=== PATIENT | female | born 1970 | race Two or more races ===

== ENCOUNTER 2018-03-08 11:02 | Outpatient (CLI) | payer BC | END 2018-03-08 11:03 | disposition home or self-care (01) | LOC: DI 11:02 | PROVIDERS: ATTEND Family Medicine | DX: R00.2 Palpitations (principal); I10 Essential (primary) hypertension | CPT/HCPCS: 93306 ==

== ENCOUNTER 2020-03-17 14:25 | Outpatient (CLI) | payer BC, OTHER ==
[2020-03-17 18:37] LABS: BASOPHILS % (AUTO) 0.2 %; EOSINOPHILS # (AUTO) 0.1 10^3/uL (0.0-0.7); EOSINOPHILS % (AUTO) 1.5 %; HGB - HEMOGLOBIN 12.4 g/dL (12.0-16.0); LYMPHOCYTES # (AUTO) 2.1 10^3/uL (1.5-3.5); LYMPHOCYTES % (AUTO) 44.9 %; MEAN CORPUSCULAR HEMOGLOBIN 28.9 pg (27.0-31.0); MEAN CORPUSCULAR HGB CONC 32.5 g/dL (32.0-36.0); MEAN CORPUSCULAR VOLUME 88.8 fL (81.0-99.0); MEAN PLATELET VOLUME 11.5 fL (7.9-10.8); MONOCYTES # (AUTO) 0.4 10^3/uL (0.0-1.0); MONOCYTES % (AUTO) 8.3 %; NEUTROPHILS # (AUTO) 2.1 10^3/uL (1.5-6.6); NEUTROPHILS % (AUTO) 44.9 %; PLT - PLATELET COUNT 238 10^3/uL (130-450); RED BLOOD COUNT 4.29 10^6/uL (4.20-5.40); WHITE BLOOD COUNT 4.7 x10^3/uL (4.8-10.8)
[2020-03-17 19:02] LABS: ALBUMIN 3.9 g/dL (3.2-5.5); BILIRUBIN,TOTAL 0.6 mg/dL (0.2-1.0); CALCIUM 9.6 mg/dL (8.5-10.3); CREATININE 0.7 mg/dL (0.4-1.0); TOTAL PROTEIN 7.7 g/dL (6.7-8.2)
[2020-03-17 20:57] LABS: FREE T4 (FREE THYROXINE) 2.93 ng/dL (0.58-1.64)
== END 2020-03-17 23:59 | disposition home or self-care (01) ==
LOC: LAB.WCP 14:25
PROVIDERS: ATTEND Family Medicine
DX: R59.0 Localized enlarged lymph nodes (principal); R63.4 Abnormal weight loss; E05.90 Thyrotoxicosis, unspecified without thyrotoxic crisis or storm
CPT/HCPCS: 36415; 80053; 83615; 84439; 84443; 85025

== ENCOUNTER 2020-03-17 22:02 | Emergency (ER) | payer BC, OTHER ==
--- NOTE | 2020-03-17 22:47 | ED Physician Documentation ---
History of Present Illness - Stated complaint Stated Complaint: LEFT LEG SWELLING, SWOLLEN LYMPH NODES - Chief complaint Chief Complaint: Ext Problem - History obtained from History obtained from: Patient - History of Present Illness Timing: Today Pain level now: 0 - Additonal information Additional information: c/o atraumatic LLE swelling since earlier today. denies h/o similar symptoms. she was evaluated recently by PMD for left supraclavicular lymphadenopathy, had outpatient blood tests earlier today and surgical consult pending for consideration of node biopsy. patient has distant h/o colon CA (approximately 15 years ago), treated w/ chemotherapy and radiation after polypectomy. patient contacted PMD this evening after noticing LLE swelling, advised to come to ED. patient denies chest pain, dyspnea. Review of Systems Constitutional: reports: Weight Loss Cardiac: reports: Reviewed and negative Respiratory: reports: Reviewed and negative GI: reports: Reviewed and negative Musculoskeletal: reports: Extremity swelling. denies: Extremity pain Neurologic: denies: Generalized weakness, Focal weakness, Numbness, Headache Endocrine: reports: Weight loss PD PAST MEDICAL HISTORY - Past Medical History Past Medical History: Yes GI: Other (colon CA) - Allergies Allergies/Adverse Reactions: Allergies Allergy/AdvReac Type Severity Reaction Status Date / Time No Known Drug Allergies Allergy Verified 03/17/20 22:11 - Living Situation Living Arrangement: reports: At home PD ED PE NORMAL - Vitals Vital signs reviewed: Yes - General General: Alert and oriented X 3, No acute distress, Well developed/nourished - Cardiac Cardiac: No murmur - Respiratory Respiratory: No respiratory distress, Clear bilaterally PD ED PE EXPANDED - Neck Neck: Adenopathy (left supraclavicular nontender adenopathy) - Cardiac Cardiac: Tachy, Regular Rhythm - Extremities Extremities: Pedal edema L (mild generalized LLE edema (circumferential of entire extremity)), Pedal Pulses Present, Motor intact, Sensory intact Results - Vitals Vitals: Vital Signs - 24 hr 03/18/20 02:18 Temperature 36.8 C Heart Rate 117 H Respiratory 20 Rate Blood Pressure 116/85 H O2 Saturation 97 Oxygen O2 Source Room air - Labs Labs: Laboratory Tests 03/17/20 23:15 PT 14.1 H INR 1.3 H APTT 30.8 - Rads (name of study) LLE doppler US Radiology: Prelim report reviewed, See rad report CT A/P with IV contrast Radiology: Prelim report reviewed, See rad report CT chest with IV contrast Radiology: Prelim report reviewed, See rad report PD MEDICAL DECISION MAKING - ED course Complexity details: reviewed results, re-evaluated patient, considered differential, d/w patient ED course: results d/w patient. d/w Dr. Hogan, will expedite follow up and will contact patient in AM to discuss follow up Departure - Departure Disposition: 01 Home, Self Care Clinical Impression: Abdominal lymphadenopathy, Peripheral edema Condition: Good Instructions: Lymphadenopathy, ED Leg Swelling Unilateral Follow-Up: Eris Hogan DO [Primary Care Provider] - Tomorrow Discharge Date/Time: 03/18/20 02:20
[2020-03-17] MEDS ORDERED: IOVERSOL 320 100 ML VIAL IVP ONE ×2 (23:16→23:52)
[2020-03-17 23:28] LABS: INR 1.3 (0.8-1.2); PT - PROTHROMBIN TIME 14.1 secs (9.9-12.6)
[2020-03-17 23:35] LABS: PARTIAL THROMBOPLASTIN TIME 30.8 secs (24.9-33.3)
[2020-03-18 02:33] VITALS: BP 116/85
--- NOTE | 2020-03-18 07:45 | Ultrasound Report ---
PROCEDURE: Duplex Ext Veins Left INDICATIONS: LLE swelling TECHNIQUE: Real-time imaging, as well as color and pulse Doppler interrogation, were performed of the lower extr emity deep veins from the inguinal ligament to the popliteal fossa. COMPARISON: None. FINDINGS: The deep veins are normally compressible, and free of intraluminal thrombus. Color and pu lse Doppler demonstrate normal phasic intraluminal flow. There is normal augmentation response to di stal compression maneuver. IMPRESSION: No evidence of deep vein sclerosis involving the left lower extremity. Reviewed by: Sirena Rodriguez MD, PhD on 03/18/2020 7:44 AM PDT Approved by: Sirena Rodriguez MD, PhD on 03/18/2020 7:44 AM PDT Station ID: [id number]
--- NOTE | 2020-03-18 08:23 | CT Report ---
PROCEDURE: CHEST W INDICATIONS: tachycardic, lymphadenopathy, LLE swelling CONTRAST: IV CONTRAST: Optiray 320 ml: 100 PO CONTRAST: *NO PO CONTRAST TECHNIQUE: After the administration of intravenous contrast, 5 mm thick sections acquired from the pulmonary api artur to the posterior costophrenic angles. 7 mm thick coronal MIP reformats were acquired. For radia tion dose reduction, the following was used: automated exposure control, adjustment of mA and/or kV according to patient size. COMPARISON: None. FINDINGS: Image quality: Excellent. Lungs and pleura: No acute air space opacities. No pleural effusions or pneumothorax. Central and peripheral airways are patent and normal in caliber. Mediastinum: Heart size is normal. No pericardial effusion. No mediastinal or hilar adenopathy by size criteria. Thoracic aorta and central pulmonary arteries are normal in size. Esophagus is starr l in caliber. No hiatal hernia. Bones and chest wall: Nonspecific vertebral body lucency measuring 6 mm is present within the T11 mariola tebral body. No priors are available for comparison. No vertebral body compression fractures. No axi llary or supraclavicular adenopathy by size criteria. Thyroid gland is unremarkable. Supraclavicula r lymph nodes are present on the left the largest measuring 20 mm AP by 23 mm transverse on series 2 image 10. Abdomen: Small stones versus sludge are noted within the gallbladder. Confluent soft tissue mass tj rounding the aorta is present although incompletely visualized. Otherwise, visualized upper abdominal solid organs appear normal. Upper abdominal bowel loops are normal in caliber. IMPRESSION: 1. Prominent supraclavicular and periaortic adenopathy as above concerning for malignancy. Please see CT abdomen report of 03/17/2020 for further details. 2. Stones versus sludge within the gallbladder without wall thickening. The above findings are concordant with preliminary report. Reviewed by: Teresa Iglesias MD on 03/18/2020 8:22 AM PDT Approved by: Teresa Iglesias MD on 03/18/2020 8:22 AM PDT Station ID: [id number]
--- NOTE | 2020-03-18 09:37 | CT Report ---
PROCEDURE: Abdomen/Pelvis W INDICATIONS: unexplained weight loss, h/o colon cancer CONTRAST: IV CONTRAST: Optiray 320 ml: 100 PO CONTRAST: *NO PO CONTRAST TECHNIQUE: After the administration of IV contrast, 5 mm thick sections acquired from the diaphragms to the symp hysis. 5 mm thick coronal and sagittal reformats were acquired. For radiation dose reduction, the f ollowing was used: automated exposure control, adjustment of mA and/or kV according to patient size. COMPARISON: None. FINDINGS: Image quality: Excellent. ABDOMEN: Lung bases: Lung bases are clear. Heart size is normal. Solid organs: Liver and spleen are normal in size and enhancement. Gallbladder demonstrates punctat e stones versus sludge without wall thickening Biliary system is non dilated. Pancreas enhances nor jannet. No adrenal nodules. Kidneys demonstrate normal size and enhancement, without hydronephrosis. Peritoneum and bowel: Bowel loops demonstrate normal wall thickness and caliber. No free fluid or a ir. Nodes and vessels: Confluent periaortic/aortocaval mass is present measuring 5.5 cm AP by 9.1 cm alexander sverse by 17.4 cm craniocaudal. The mass compresses the IVC within the inferior portion. It extends i nto the pelvis bilaterally surrounding the iliac vessels. There is significant compression of the rig ht common iliac vein and bilateral external iliac veins proximally. Lobulated areas of soft tissue ma ss becoming contiguous with the mass surrounding the iliac arteries are present within the pelvic edgardo ewalls bilaterally measuring 30 mm AP by 33 mm transverse on the left and 22 mm AP by 20 mm transvers e on the right. Left retrocrural soft tissue mass is present measuring 24 mm AP by 22 mm transverse. Aorta and inferior vena cava are normal in size. Miscellaneous: No ventral hernias. PELVIS: Genitourinary: Bladder wall thickness is normal. Left ovarian cyst is noted. Miscellaneous: No inguinal hernias or adenopathy. Bones: T11 vertebral body lucency measuring approximately 6 mm. No priors are available for compariso n. No vertebral body compression fractures. IMPRESSION: 1. Extensive soft tissue mass suspicious for malignant adenopathy in the retroperitoneum extending in to the pelvis as above. 2. T11 vertebral body lucency, nonspecific. However, given areas of adenopathy, metastatic focus britt ot be definitively excluded. 3. Cholelithiasis without imaging evidence of cholecystitis. The above findings are concordant with preliminary report. Reviewed by: Teresa Iglesias MD on 03/18/2020 9:36 AM PDT Approved by: Teresa Iglesias MD on 03/18/2020 9:36 AM PDT Station ID: [id number]
== END 2020-03-18 02:20 | disposition home or self-care (01) ==
LOC: ED 22:02
DX: R59.0 Localized enlarged lymph nodes (principal); R60.0 Localized edema; Z85.038 Personal history of other malignant neoplasm of large intestine
CPT/HCPCS: 36415; 71260; 74177; 85610; 85730; 93971; 99284; Q9967

== ENCOUNTER 2020-03-22 12:59 | Outpatient (CLI) | payer OTHER | END 2020-03-22 13:00 | disposition home or self-care (01) | LOC: LAB 12:59 | PROVIDERS: ATTEND Surgery | DX: Z01.812 Encounter for preprocedural laboratory examination (principal); R59.0 Localized enlarged lymph nodes; Z20.828 Contact with and (suspected) exposure to other viral communicable diseases ==

== ENCOUNTER 2020-03-25 10:20 | Day surgery (SDC) | payer OTHER ==
[2020-03-25] MEDS ORDERED: LACTATED RINGERS 1,000 ML IV ONE ×2 (10:39→12:49)
[2020-03-25] MEDS ORDERED: METOCLOPRAMIDE 10 MG/2 ML VIAL IVP PRN (10:58)
[2020-03-25] MEDS ORDERED: ATROPINE ABBOJECT 1 MG/10 ML SYRINGE IVP PRN (10:58)
[2020-03-25] MEDS ORDERED: ePHEDrine 50 MG/ML VIAL IVP PRN (10:58)
[2020-03-25] MEDS ORDERED: HYDROmorphone 0.5 MG/0.5 ML SYRINGE IVP PRN (10:58)
[2020-03-25] MEDS ORDERED: NALOXONE 0.4 MG/ML VIAL IVP PRN (10:58)
[2020-03-25] MEDS ORDERED: fentaNYL 100 MCG/2 ML VIAL IVP PRN (10:58)
[2020-03-25] MEDS ORDERED: MORPHINE 2 MG/ML CARPUJECT IVP PRN (10:58)
[2020-03-25] MEDS ORDERED: ONDANSETRON 4 MG/2 ML VIAL IVP PRN (10:58)
--- NOTE | 2020-03-25 10:58 | ANESTHESIA ---
Pre-Anesthesia VS, & Labs - Diagnosis left neck enlarged lymph node - Procedure left neck lymph node biopsy Vital Signs: Temp Pulse Resp BP Pulse Ox 37 C 116 H 16 156/83 H 96 03/25/20 10:31 03/25/20 10:31 03/25/20 10:31 03/25/20 10:31 03/25/20 10:31 Height: 5 ft 7 in Weight (kg): 74.5 kg Body Mass Index: 25.7 BMI Classification: Overweight - NPO >8 hours - Is Patient ?: No - Lab Results Lab results reviewed: Yes Home Medications and Allergies Home Medications: Ambulatory Orders methIMAzole [Methimazole] 5 mg PO DAILY 03/22/20 methIMAzole [Methimazole] 5 mg PO DAILY 03/22/20 Allergies/Adverse Reactions: Allergies Allergy/AdvReac Type Severity Reaction Status Date / Time No Known Drug Allergies Allergy Verified 03/17/20 22:11 Anes History & Medical History - Anesthetic History Anesthesia Complications: reports: No previous complications Family history of Anesthesia Complications: Denies Family history of Malignant Hyperthermia: Denies - Medical History Cardiovascular: reports: Hypertension Pulmonary: reports: None Gastrointestinal: reports: Other Urinary: reports: None Musculoskeletal: reports: None Endocrine/Autoimmune: reports: HyPERthyroidism Skin: reports: None Smoking Status: Never smoker - Surgical History General: Colonoscopy Exam General: Alert, Oriented x3, Cooperative, No acute distress Dental: WNL Mouth Openin Fingerbreadth Neck Mobility: Normal Mallampati classification: II Respiratory: Lungs clear, Normal breath sounds, No respiratory distress, No accessory muscle use Cardiovascular: Regular rate, Normal S1, Normal S2, No murmurs Abdomen: Normal bowel sounds, Soft, No tenderness, No hepatospenomegaly, No masses Plan Anesthesia Type: General Consent for Procedure(s) Verified and Reviewed: Yes Code Status: Attempt Resuscitation ASA classification: 2-Mild systemic disease Is this case an emergency?: No
[2020-03-25] MEDS ORDERED: LACTATED RINGERS 1,000 ML IV SCH (11:00)
[2020-03-25] MEDS ORDERED: BUPIVACAINE 0.25% PF 30 ML VIAL ONE (11:27)
[2020-03-25] MEDS ORDERED: BUPIVACAINE 0.25%-EPI 1:200000 PF 30 ML VIAL ONE (11:27)
[2020-03-25] MEDS ORDERED: ONDANSETRON 4 MG/2 ML VIAL IVP ONE (11:42)
[2020-03-25] MEDS ORDERED: fentaNYL 100 MCG/2 ML VIAL IVP ONE (11:42)
[2020-03-25] MEDS ORDERED: PROPOFOL 200 MG/20 ML VIAL IVP ONE (11:42)
[2020-03-25] MEDS ORDERED: LIDOCAINE-MPF 2% 5 ML VIAL IM ONE (11:42)
[2020-03-25] MEDS ORDERED: DEXAMETHASONE 4 MG/ML VIAL IVP ONE (11:42)
[2020-03-25] MEDS ORDERED: BUPIVACAINE 0.25%-EPI 1:200000 PF 30 ML VIAL SUBQ ONE (12:07)
[2020-03-25] MEDS ORDERED: HYDROcod/ACETAM 5/325 MG TABLET PO PRN (12:41)
--- NOTE | 2020-03-25 12:59 | OPERATIVE REPORT ---
Operative Report - General Procedure Date: 03/25/20 Planned Procedure: left neck lymph node bx Pre-Op Diagnosis: lymphadenopathy Procedure Performed: left neck lymph node biopsy Post Op Diagnosis: same - Procedure Note Primary Surgeon: jorgito valenzuela Anesthesia Technique: General LMA Pathology: node Estimated Blood Loss (mL): 0 Drain/Tube Type: Other (none) Complications: none
--- NOTE | 2020-03-25 13:36 | ANESTHESIA POST OP EVALUATION ---
Anesthesia Post Eval - Post Anesthesia Eval Vitals: Last Vital Signs Temp 36.6 C 03/25/20 13:20 Pulse 108 H 03/25/20 13:20 Resp 16 03/25/20 13:20 BP 133/67 H 03/25/20 13:20 Pulse Ox 97 03/25/20 13:20 CV Function Including HR & BP: positive: Stable Pain Control: positive: Satisfactory Nausea & Vomiting: positive: Negative Mental Status: positive: Baseline Respiratory Status: Airway Patent Hydration Status: Satisfactory Anesthesia Complications: positive: None
[2020-03-25 14:07] VITALS: BP 128/70
--- NOTE | 2020-03-25 17:55 | OPERATIVE REPORT ---
DATE OF SERVICE: 03/25/2020 Physician: Cliff Garcia MD DATE OF PROCEDURE 03/25/2020. PREOPERATIVE DIAGNOSIS Lymphadenopathy of left neck. POSTOPERATIVE DIAGNOSIS Lymphadenopathy of left neck. PROCEDURE PERFORMED Lymph node biopsy of left lower cervical node. SURGEON Cliff Garcia MD LEAD TEACHER None. ANESTHESIA Laryngeal mask anesthesia. Local anesthesia with Marcaine. SPECIMEN Sent to pathology. ESTIMATED BLOOD LOSS None. DRAINS None. COMPLICATIONS None. INDICATIONS FOR PROCEDURE The patient is a previously well 49-year-old who has developed left neck lymphadenopathy over the last 1-2 months; it is slowly progressing. She had a CT scan showing signif icant retroperitoneal adenopathy as well. She presents for lymph node biopsy. Risks and alternative s discussed, and all questions answered and consent obtained. DESCRIPTION OF PROCEDURE The patient was properly identified and brought to the operating room and p laced in the supine position. Laryngeal mask anesthesia was induced. She was repositioned in the mo dified Cat's position. She was prepped and draped in a sterile fashion. Antibiotics were not giv en. A 3.5 cm incision was made in the direction of Radha's lines over a large palpable; however, mo bile lymph node. Dissection proceeded with cutting current down through the platysma. A small nerve was carefully preserved. Dissection proceeded down to the lymph node. The lymph node was largely m obilized with blunt dissection. Lymph node was removed with a single 2-0 silk tie. Hemostasis was a ssured. The platysma was then closed with a running 3-0 Vicryl suture. Buried interrupted subdermal 3-0 Vicryl sutures were then placed. Skin was closed with a running 4-0 Monocryl subcuticular sutur e. Skin glue was used as a dressing. She tolerated the procedure well. TD: 03/25/2020 13:05
== END 2020-03-25 10:21 | disposition home or self-care (01) ==
LOC: SDS 10:20
PROVIDERS: ATTEND Surgery
PROC: 0JB50ZX Excision of Left Neck Subcutaneous Tissue and Fascia, Open Approach, Diagnostic (ICD-10-PCS; principal; 2020-03-25 11:30)
DX: C7B.8 Other secondary neuroendocrine tumors (principal); C80.1 Malignant (primary) neoplasm, unspecified; I10 Essential (primary) hypertension; Z85.038 Personal history of other malignant neoplasm of large intestine
CPT/HCPCS: 38500; J7120

== ENCOUNTER 2020-04-03 19:01 | Emergency (ER) | payer OTHER ==
[2020-04-03] MEDS ORDERED: KETOROLAC 30 MG/ML VIAL IVP STA (19:51)
[2020-04-03] MEDS ORDERED: SODIUM CHLORIDE 0.9% 1,000 ML IV STA (19:51)
[2020-04-03] MEDS ORDERED: GABAPENTIN 100 MG CAPSULE PO STA (19:52)
--- NOTE | 2020-04-03 20:00 | ED Physician Documentation ---
PD HPI ABD PAIN - Stated complaint Stated Complaint: ABD PAIN - Chief complaint Chief Complaint: Abd Pain - History obtained from History obtained from: Patient - Additional information Additional information: She has been having some on and off symptoms of pain especially at night in the abdomen over the last few months. She was seen here on March 17 because she had left leg swelling, mostly at the time to make sure she did not have a DVT. She was evaluated that time by Dr. Ewing, and ultrasound was negative but this was followed with CTs of the chest abdomen and pelvis which were notable for extensive soft tissue mass suspicions for malignant adenopathy in the retroperitoneum extending into the pelvis with a nonspecific T11 vertebral body focus. She also had cholelithiasis. Subsequently about a week later she went to the operating room because she had adenopathy that was amenable to biopsy and a biopsy was done on the eighth of this month of a left supraclavicular lymph node. 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 She has been having a lot of pain, especially in the low abdomen, the right lower quadrant. She still has the left leg swelling but that has not changed. Pain is generally getting worse and more present at night. She has been having bowel movements. She has been taking hydrocodone but is taking a laxative and she has not stopped up. She denies vomiting. She has had about a 70 pound weight loss over the last 6 months or so. She notes that she had a menses which finished up at the end of last month. But still has vaginal discharge, mostly clear to blood-tinged. Of an amount that still requires her to wear a pad. Review of Systems Ten Systems: 10 systems reviewed and negative Constitutional: reports: Fatigue, Weight Loss. denies: Fever, Chills Cardiac: denies: Chest pain / pressure, Palpitations Respiratory: denies: Dyspnea, Cough GI: reports: Abdominal Pain. denies: Nausea, Vomiting, Constipation, Diarrhea : denies: Dysuria PD PAST MEDICAL HISTORY - Past Medical History Cardiovascular: Hypertension Respiratory: None Endocrine/Autoimmune: HyPERthyroidism GI: Other : None HEENT: Chronic vision loss, Other Psych: None Musculoskeletal: None Derm: None - Past Surgical History Past Surgical History: No General: Colonoscopy - Present Medications Home Medications: Ambulatory Orders Medication Instructions Recorded Confirmed methIMAzole [Methimazole] 5 mg PO DAILY 03/22/20 04/03/20 Hydrocodone/Acetaminophen 1 each PO Q4HR PRN #30 tablet 03/25/20 04/03/20 [Hydrocodone-Acetamin 5-325 mg] HYDROmorphone [Dilaudid] 1 - 2 tab PO Q4H PRN #40 tablet 04/03/20 - Allergies Allergies/Adverse Reactions: Allergies Allergy/AdvReac Type Severity Reaction Status Date / Time No Known Drug Allergies Allergy Verified 04/03/20 19:11 - Social History Does the pt smoke?: No Smoking Status: Never smoker Does the pt drink ETOH?: Yes Does the pt have substance abuse?: No - POLST Patient has POLST: No PD ED PE NORMAL - Vitals Vital signs reviewed: Yes - General General: Alert and oriented X 3, No acute distress, Other (Tachycardic) - HEENT HEENT: PERRL, EOMI - Neck Neck: Supple, no meningeal sign, No bony TTP - Cardiac Cardiac: RRR, No murmur - Respiratory Respiratory: No respiratory distress, Clear bilaterally - Abdomen Abdomen: Normal bowel sounds, Soft, Non tender - Female Female : 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 No tenderness on bimanual examination.) - Back Back: No CVA TTP, No spinal TTP - Derm Derm: Normal color, Warm and dry - Extremities Extremities: Other (Left leg is edematous with good cap refill distally. I am unable to feel a pulse in the left leg, but it is well perfused and there is no pain in the leg. Right pedal pulses are bounding.) - Neuro Neuro: Alert and oriented X 3, Normal speech Results - Vitals Vitals: Vital Signs - 24 hr 04/03/20 04/03/20 04/03/20 19:04 20:47 21:59 Temperature 36.7 C Heart Rate 117 H 113 H 66 Respiratory 18 18 16 Rate Blood Pressure 180/93 H 166/87 H 141/68 H O2 Saturation 97 100 100 Oxygen O2 Source Room air - Labs Labs: Laboratory Tests 04/03/20 04/03/20 19:56 19:56 WBC 4.4 L RBC 4.00 L Hgb 11.3 L Hct 35.1 L MCV 87.8 MCH 28.3 MCHC 32.2 RDW 13.0 Plt Count 165 MPV 9.8 Neut # (Auto) 2.3 Lymph # (Auto) 1.4 L [place] # (Auto) 0.6 Eos # (Auto) 0.1 Baso # (Auto) 0.0 Absolute Nucleated RBC 0.00 Nucleated RBC % 0.0 Sodium 138 Potassium 4.1 Chloride 102 Carbon Dioxide 25 Anion Gap 11.0 BUN 17 Creatinine 0.6 Estimated GFR (MDRD) 106 Glucose 99 Calcium 9.4 Total Bilirubin 0.7 AST 39 ALT 37 Alkaline Phosphatase 46 Total Protein 7.1 Albumin 3.4 Globulin 3.7 Albumin/Globulin Ratio 0.9 L Lipase 19 L - Rads (name of study) CT A/P Radiology: EMP read contemporaneously (Really no change from prior CT.) PD MEDICAL DECISION MAKING - ED course ED course: This is an unfortunate 49-year-old woman who presents with known stage IV recent diagnosis of metastatic neuroendocrine carcinoma, with uncontrolled abdominal pain. She has known significant retroperitoneal lymphadenopathy and this may be causative. However complications of the vascular system are also entertained given the location of the tumors. As is bowel obstruction although clinically this does not seem present. She may also have things like hydronephrosis from tumor burden etc. We will check for all this with a CAT scan. She is been taking hydrocodone which is helpful but does not relieve the pain too much and she does not like the way it makes her feel. In the department we will trial some Toradol and gabapentin. No relief from above but pain free p dilaudid IV. Pelvic exam results d/w Dr Payne, community outreach worker to F/u in office. Departure - Departure Disposition: 01 Home, Self Care Clinical Impression: Neuroendocrine carcinoma metastatic to multiple sites, Cervical mass Abdominal pain Qualifiers: Abdominal location: lower abdomen, unspecified Qualified Code(s): R10.30 - Lower abdominal pain, unspecified Condition: Good Record reviewed to determine appropriate education?: Yes Follow-Up: Kalpana Morrison MD [Provider Admit Priv/Credential] - Prescriptions: HYDROmorphone [Dilaudid] 1 - 2 tab PO Q4H PRN #40 tablet PRN Reason: Pain Comments: It was a pleasure meeting you tonight and I am glad we were able to make some headway into improving your pain. It is I think important to follow-up with a middle school volleyball coach for reevaluation of the cervical mass we found bo. See the phone number on this form and call Sunday for an appointment. Return anytime if worsening or if the symptom burden is uncontrolled. The following is the email I wrote to your physician bo: Eris, I had the pleasure of seeing your patient bo, Ms. Ko Gonzalez. As you know this is an 49-year-old woman with new diagnosis of metastatic neuroendocrine carcinoma. Planning to see oncology this coming Sunday. She presented with abdominal pain that is generally worsening, pelvic and right lower quadrant. She also noted that she has been having vaginal fluid loss after her menses 2 weeks ago. We repeated the CT scan, there really were no changes. Labs were unremarkable, except for brewing new mild anemia which is not unexpected. Because of her complaints I also did a pelvic exam and she has a friable cervical mass that is necrotic appearing. I discussed the case by phone with Na Morrison, our middle school volleyball coach on-call. She felt the most likely this is a site of metastasis of her primary neuroendocrine tumor. But she probably needs to have gynecology do a pelvic exam as well. I have written the phone number down for her to go see gynecology, do not know if she needs a formal referral from you. She did better with Dilaudid than she did with hydrocodone for pain management and I provided a prescription. She may need refills. Thanks, Rafiq Weeks MD FACEP Chief of Medicine Emergency Department Entry Level Assistant Manager Discharge Date/Time: 04/03/20 22:02
[2020-04-03 20:07] LABS: BASOPHILS % (AUTO) 0.2 %; EOSINOPHILS # (AUTO) 0.1 10^3/uL (0.0-0.7); EOSINOPHILS % (AUTO) 1.4 %; HGB - HEMOGLOBIN 11.3 g/dL (12.0-16.0); LYMPHOCYTES # (AUTO) 1.4 10^3/uL (1.5-3.5); LYMPHOCYTES % (AUTO) 32.4 %; MEAN CORPUSCULAR HEMOGLOBIN 28.3 pg (27.0-31.0); MEAN CORPUSCULAR HGB CONC 32.2 g/dL (32.0-36.0); MEAN CORPUSCULAR VOLUME 87.8 fL (81.0-99.0); MEAN PLATELET VOLUME 9.8 fL (7.9-10.8); MONOCYTES # (AUTO) 0.6 10^3/uL (0.0-1.0); MONOCYTES % (AUTO) 12.9 %; NEUTROPHILS # (AUTO) 2.3 10^3/uL (1.5-6.6); NEUTROPHILS % (AUTO) 52.9 %; PLT - PLATELET COUNT 165 10^3/uL (130-450); WHITE BLOOD COUNT 4.4 x10^3/uL (4.8-10.8)
[2020-04-03 20:18] LABS: ALBUMIN 3.4 g/dL (3.2-5.5); ALBUMIN/GLOBULIN RATIO 0.9 (1.0-2.2); BILIRUBIN,TOTAL 0.7 mg/dL (0.2-1.0); CALCIUM 9.4 mg/dL (8.5-10.3); CREATININE 0.6 mg/dL (0.4-1.0); TOTAL PROTEIN 7.1 g/dL (6.7-8.2)
[2020-04-03] MEDS ORDERED: IOVERSOL 320 100 ML VIAL IVP ONE ×2 (20:21→20:49)
[2020-04-03] MEDS ORDERED: HYDROmorphone 1 MG/ML CARPUJECT IVP STA (20:47)
--- NOTE | 2020-04-03 21:21 | CT Report ---
PROCEDURE: Abdomen/Pelvis W INDICATIONS: IV only, worse low abd pain, RLQ CONTRAST: IV CONTRAST: Optiray 320 ml: 100 PO CONTRAST: *NO PO CONTRAST TECHNIQUE: After the administration of intravenous contrast, 5 mm thick sections acquired from the diaphragms to the symphysis. 5 mm thick coronal and sagittal reformats were acquired. For radiation dose reducti on, the following was used: automated exposure control, adjustment of mA and/or kV according to yulissa ent size. COMPARISON: CT abdomen and pelvis 03/17/2020. FINDINGS: Image quality: Excellent. ABDOMEN: Lung bases: Lung bases are clear. Heart size is normal. Solid organs: Liver is normal in size and enhancement. Gallbladder is not distended. Gallstones are present. Biliary system is non dilated. Pancreas appears atrophic. Spleen mildly prominent in size measuring 13.1 cm protocol dimension, (). No adrenal nodules. Kidneys demonstrate normal size a nd enhancement, without hydronephrosis. Peritoneum and bowel: Bowel loops demonstrate normal wall thickness and caliber. Normal appendix. N o free fluid or air. Nodes and vessels: Bulky confluent retroperitoneal adenopathy, similar to February 2020. Pelvic side wall adenopathy is also similar. Enlarged right mesorectal lymph node, unchanged. Small cysts in the pelvis are unchanged. Aorta and inferior vena cava are normal in size. Mesenteric vessels are patent . Miscellaneous: No ventral hernias. Mild anasarca. PELVIS: Genitourinary: Bladder wall thickness is normal. Anteverted uterus. Abnormal thickening in the regio n of the uterine cervix, similar the prior exam. Miscellaneous: No inguinal hernias or adenopathy. Bones: Hypodense focus in the T11 vertebral body is unchanged. No new areas of lucency or hypodensity . No vertebral body compression fractures. IMPRESSION: 1. No acute inflammatory process identified. No free fluid. Normal appendix in the right lower quadra nt. 2. Bulky confluent retroperitoneal and pelvic adenopathy is not significantly changed compared to Feb. 3. Similar cysts in the pelvis likely ovarian cyst. Similar abnormal thickening in the region of the uterine cervix. -Consider further evaluated with pelvic ultrasound. 4. Similar anasarca. 5. Gallstones. Reviewed by: Flip Chen MD on 04/03/2020 9:19 PM PDT Approved by: Flip Chen MD on 04/03/2020 9:19 PM PDT Station ID: [id number]
[2020-04-03] MEDS ORDERED: HYDROmorphone 2 MG TABLET PO STA (21:41)
[2020-04-03 22:00] VITALS: BP 141/68
== END 2020-04-03 22:02 | disposition home or self-care (01) ==
LOC: ED 19:01
DX: C7A.1 Malignant poorly differentiated neuroendocrine tumors (principal); C77.2 Secondary and unspecified malignant neoplasm of intra-abdominal lymph nodes; D39.0 Neoplasm of uncertain behavior of uterus; I10 Essential (primary) hypertension; D64.9 Anemia, unspecified; K80.20 Calculus of gallbladder without cholecystitis without obstruction
CPT/HCPCS: 36415; 74177; 80053; 83690; 85025; 96374; 96375; 99284; 99285; A9270; J1170; Q9967

== ENCOUNTER 2020-04-16 07:00 | Outpatient (CLI) | payer OTHER ==
[2020-04-16 20:30] LABS: CANDIDA GROUP DNA NEGATIVE (NEGATIVE); CANDIDA KRUSEI DNA NEGATIVE (NEGATIVE); TRICHOMONAS VAGINALIS DNA NEGATIVE (NEGATIVE)
[2020-04-16 21:15] LABS: TRICHOMONAS VAGINALIS DNA NEGATIVE (NEGATIVE)
== END 2020-04-16 23:59 | disposition home or self-care (01) ==
LOC: LAB.R 07:00
PROVIDERS: ATTEND Obstetrics & Gynecology
DX: N89.8 Other specified noninflammatory disorders of vagina (principal); Z11.3 Encounter for screening for infections with a predominantly sexual mode of transmission; Z01.812 Encounter for preprocedural laboratory examination; Z20.828 Contact with and (suspected) exposure to other viral communicable diseases; C7A.8 Other malignant neuroendocrine tumors
CPT/HCPCS: 87491; 87591; 87661; 87801

== ENCOUNTER 2020-04-16 15:37 | Outpatient (CLI) | payer OTHER | END 2020-04-16 15:38 | disposition home or self-care (01) | LOC: COV 15:37 | PROVIDERS: ATTEND Surgery | DX: Z01.812 Encounter for preprocedural laboratory examination (principal); Z20.828 Contact with and (suspected) exposure to other viral communicable diseases; C7A.8 Other malignant neuroendocrine tumors ==

== ENCOUNTER 2020-04-20 10:25 | Day surgery (SDC) | payer OTHER ==
[2020-04-20] MEDS ORDERED: LACTATED RINGERS 1,000 ML IV ONE ×2 (10:46→13:02)
[2020-04-20 10:59] LABS: HCG UR QUAL NEGATIVE
--- NOTE | 2020-04-20 11:24 | ANESTHESIA ---
Pre-Anesthesia VS, & Labs - Diagnosis neuroendocrine cancer - Procedure port placement Vital Signs: Temp Pulse Resp BP Pulse Ox 36.7 C 139 H 20 173/92 H 96 04/20/20 10:46 04/20/20 10:46 04/20/20 10:46 04/20/20 10:46 04/20/20 10:46 Height: 5 ft 7 in Weight (kg): 69.6 kg Body Mass Index: 24.0 BMI Classification: Healthy weight - NPO >8 hours - Is Patient ?: No Home Medications and Allergies methIMAzole [Methimazole] 5 mg PO DAILY 03/22/20 oxyCODONE [Roxicodone] 5 mg PO Q4-6H 04/09/20 Allergies/Adverse Reactions: Allergies Allergy/AdvReac Type Severity Reaction Status Date / Time No Known Drug Allergies Allergy Verified 04/19/20 14:50 Anes History & Medical History - Anesthetic History Anesthesia Complications: reports: No previous complications - Medical History Cardiovascular: reports: Hypertension Pulmonary: reports: None Gastrointestinal: reports: Other Urinary: reports: None Neuro: reports: None Musculoskeletal: reports: None Endocrine/Autoimmune: reports: HyPERthyroidism (treated with methimazole) Skin: reports: None Smoking Status: Never smoker Psychosocial: reports: No issues indicated History of Cancer?: Yes (metastatic cancer) - Surgical History General: Colonoscopy, Other (lymph node biopsy) Exam General: Alert, Oriented x3, Cooperative, No acute distress Dental: WNL Mouth Openin Fingerbreadth Neck Mobility: Normal Mallampati classification: II Thyromental Distance: 4-6 cm Mental/Cognitive Status: Alert/Oriented X3, Normal for patient Plan Anesthesia Type: General, MAC Consent for Procedure(s) Verified and Reviewed: Yes Code Status: Attempt Resuscitation ASA classification: 3-Severe systemic disease Is this case an emergency?: No
[2020-04-20] MEDS ORDERED: LIDOCAINE 1% 50 ML MDV ONE (11:28)
[2020-04-20] MEDS ORDERED: BUPIVACAINE 0.25% PF 30 ML VIAL ONE (11:28)
[2020-04-20] MEDS ORDERED: fentaNYL 100 MCG/2 ML VIAL IVP ONE (11:58)
[2020-04-20] MEDS ORDERED: KETAMINE 500 MG/10 ML VIAL IVP ONE (11:58)
[2020-04-20] MEDS ORDERED: PROPOFOL 200 MG/20 ML VIAL IVP ONE (11:58)
[2020-04-20] MEDS ORDERED: MIDAZOLAM 2 MG/2 ML VIAL IVP ONE (11:58)
[2020-04-20] MEDS ORDERED: CEFAZOLIN SODIUM IN 0.9 % NACL 2 GM/100 ML BAG IV ONE (12:14)
[2020-04-20] MEDS ORDERED: LIDOCAINE 1% 50 ML MDV SUBQ ONE ×2 (12:22)
[2020-04-20] MEDS ORDERED: BUPIVACAINE 0.25% PF 30 ML VIAL SUBQ ONE ×2 (12:23)
[2020-04-20] MEDS ORDERED: ONDANSETRON 4 MG/2 ML VIAL IVP PRN (13:03)
[2020-04-20 13:36] VITALS: BP 124/60
--- NOTE | 2020-04-20 13:40 | XRAY Report ---
PROCEDURE: OR Port-A-Cath INDICATIONS: LEFT PORTACATH TECHNIQUE: Single fluoroscopic image of the chest centered on the upper mediastinum COMPARISON: None. FINDINGS: Tubing from a left subclavian port catheter is partially visualized. The tubing terminates near the c onfluence of the left subclavian vein and superior vena cava. IMPRESSION: Adequate position of left chest wall port catheter. Reviewed by: Earle Nunez MD on 04/20/2020 1:39 PM PST Approved by: Earle Nunez MD on 04/20/2020 1:39 PM PST Station ID: [id number]
--- NOTE | 2020-04-20 14:26 | ANESTHESIA POST OP EVALUATION ---
Anesthesia Post Eval - Post Anesthesia Eval Vitals: Last Vital Signs Temp 37.0 C 04/20/20 13:35 Pulse 115 H 04/20/20 13:35 Resp 18 04/20/20 13:35 BP 124/60 04/20/20 13:35 Pulse Ox 98 04/20/20 13:35 CV Function Including HR & BP: positive: Stable Pain Control: positive: Satisfactory Nausea & Vomiting: positive: Negative Mental Status: positive: Baseline Respiratory Status: Airway Patent Hydration Status: Satisfactory Anesthesia Complications: positive: None
--- NOTE | 2020-04-20 20:55 | OPERATIVE REPORT ---
DATE OF SERVICE: 04/20/2020 Physician: Cliff Garcia MD PREOPERATIVE DIAGNOSIS: Metastatic neuroendocrine cancer and need for PowerPort placement. POSTOPERATIVE DIAGNOSIS: Metastatic neuroendocrine cancer and need for PowerPort placement. PROCEDURE 1. Left subclavian vein PowerPort placement. 2. Fluoroscopic guidance for placement. SURGEON: Cliff Garcia MD CYLINDER HANDLER: None. ANESTHESIA: Monitored anesthesia care and IV sedation and local anesthesia. COMPLICATIONS: None. SPECIMEN: None. ESTIMATED BLOOD LOSS: 5 mL DRAINS: None. FINDINGS: Good PowerPort placement with tip at the junction of the atrium and the superior vena cava. The port flushed and aspirated very easily. INDICATIONS FOR PROCEDURE: Patient is a 49-year-old lady who has developed a deep abdominal and back discomfort and left neck lymphadenopathy. She had a left neck lymph node biopsy recently, which shows small cell, neuroendocrine cancer. She has metastatic disease and requires chemotherapy and Jvpx-U-Tpylixap placement. Risks discussed, alternatives discussed, all questions answered, and consent obtained. DETAILS OF PROCEDURE: Patient was properly identified, brought to the operating room, and placed in supine position. Monitored anesthesia care was given as well as IV sedation. She was prepped and draped in a sterile fashion and given preoperative antibiotics. She had been positioned with towel rolled underr her upper spine and arms tucked. The left subclavian vein was accessed second pass with a needle. Guidewire was easily placed. Mild ectopy occurred, and guidewire was pulled back slightly. A 2.5 cm incision was made in the left upper chest. A subcutaneous pocket was created for port placement. Vvgp-Z-Ubpopdxu tubing was then placed through a small subcutaneous tunnel up to the venous access point. The Qgnk-W-Rrdpgqtg tubing was then easily placed with a dilator pull-away sheath. Tubing was pulled back to the desired above position under fluoroscopic guidance. The port tubing was aspirated and flushed, which was very easy. Tdyj-Q-Rxyqtqcs tubing was cut to size and port further assembled. Port was secured to the subcutaneous tissue with interrupted 5-0 Prolene suture. Buried interrupted subdermal 3-0 Vicryl sutures were then placed. Skin was closed with buried interrupted or running 4-0 Monocryl subcuticular suture. The port again was aspirated and flushed with heparin. The Crmo-X-Xtllbfwg was left accessed for use tomorrow. Dressing was applied. She tolerated the procedure well. TD: 04/20/2020 14:43 JONO
== END 2020-04-20 10:26 | disposition home or self-care (01) ==
LOC: SDS 10:25
PROVIDERS: ATTEND Surgery
DX: C7A.8 Other malignant neuroendocrine tumors (principal); E05.90 Thyrotoxicosis, unspecified without thyrotoxic crisis or storm; I10 Essential (primary) hypertension
CPT/HCPCS: 36561; 81025; C1788; J0690; J7120

== ENCOUNTER 2020-04-24 12:35 | Outpatient (CLI) | payer OTHER ==
--- NOTE | 2020-04-20 13:02 | OPERATIVE REPORT ---
Operative Report - General Procedure Date: 04/20/20 Planned Procedure: power port placement Pre-Op Diagnosis: metastatic neuroendocrine tumor Procedure Performed: left subclavian powerport placement Post Op Diagnosis: jp - Procedure Note Primary Surgeon: jorgito valenzuela Anesthesia Technique: Local, MAC Estimated Blood Loss (mL): 5 Findings: good placement and flow Complications: none
[~2020-04-24 12:35] MED LIST: ONDANSETRON 4 MG/2 ML VIAL IVP PRN
[2020-04-24] MEDS ORDERED: GADOBUTROL 7.5 MMOL/7.5 ML VIAL ONE (13:18)
[2020-04-24] MEDS ORDERED: GADOBUTROL 7.5 MMOL/7.5 ML VIAL IVP ONE (13:43)
--- NOTE | 2020-04-26 09:47 | MRI Report ---
PROCEDURE: Brain W/WO INDICATIONS: MALIGNANT NEUROENDOCRINE TUMORS CONTRAST: IV CONTRAST: Gadavist ml: 7 TECHNIQUE: Noncontrast axial T1 spin echo, axial T2 fast spin echo, sagittal and axial FLAIR, coronal T2 fast sp in echo, axial gradient echo, axial diffusion and ADC through the brain. After the administration of contrast, axial and coronal T1 spin echo with fat saturation through the brain. COMPARISON: None. FINDINGS: Image quality: Excellent. CSF spaces: Basal cisterns are patent. No extra-axial fluid collections. Ventricles are normal in size and shape. Brain: No midline shift. No intracranial bleeds or masses. No abnormal intracranial enhancement. Dural sinuses demonstrate normal postcontrast enhancement. There is minimal periventricular white mat ter chronic small vessel ischemic change. The brainstem appears normal. Diffusion-weighted images d emonstrate no acute ischemic insults. No chronic ischemic insults. Normal intravascular flow voids are present. Skull and face: Calvarial marrow is normal in signal. Orbits appear normal. Sinuses: Sinuses and mastoids appear clear. IMPRESSION: 1. No evidence of metastatic disease. No abnormal intracranial mass or suspicious postcontrast enhanc ement. 2. No acute intracranial disease process. 3. Minimal periventricular and subcortical white matter chronic microvascular ischemic change. Reviewed by: Sirena Rodriguez MD, PhD on 04/26/2020 9:45 AM PST Approved by: Sirena Rodriguez MD, PhD on 04/26/2020 9:45 AM PST Station ID: [id number]
== END 2020-04-24 12:36 | disposition home or self-care (01) ==
LOC: DI 12:35
PROVIDERS: ATTEND Internal Medicine Hematology & Oncology
DX: C7A.1 Malignant poorly differentiated neuroendocrine tumors (principal); C77.2 Secondary and unspecified malignant neoplasm of intra-abdominal lymph nodes; I67.2 Cerebral atherosclerosis
CPT/HCPCS: 70553; A9585

== ENCOUNTER 2020-05-02 22:33 | Inpatient (IN) | payer OTHER ==
--- NOTE | 2020-05-02 22:51 | ED Physician Documentation ---
PD HPI FEVER - Stated complaint Stated Complaint: FEVER - Chief complaint Chief Complaint: Fever - History obtained from History obtained from: Patient - History of Present Illness Timing - onset: Today Timing details: Abrupt onset Pain level now: 0 Associated symptoms: Chills Similar symptoms before: Diagnosis (neuroendocrine malignancy) Recently seen: Clinic ([facility] [place]) - Additional information Additional information: patient has recently diagnosed neuroendocrine malignancy for which she received chemotherapy on the 4th, , and 6th of this month. Tonight she developed shaking chills and took her temperature which measured 101.4. She contacted her doctor and was advised to come to ED. She has no other new/acute c/o aside from the chills and fever. Review of Systems Constitutional: reports: Fever, Chills, Fatigue Eyes: reports: Reviewed and negative Ears: reports: Reviewed and negative Nose: reports: Reviewed and negative Throat: reports: Reviewed and negative Cardiac: reports: Reviewed and negative Respiratory: reports: Reviewed and negative GI: reports: Abdominal Pain (chronic). denies: Vomiting, Diarrhea : reports: Discharge (not new (has been seen by sales support administrator and was told this was due to cervical necrotic tissue)). denies: Dysuria, Frequency Skin: denies: Rash Neurologic: denies: Generalized weakness, Focal weakness, Numbness PD PAST MEDICAL HISTORY - Past Medical History Cardiovascular: Hypertension Respiratory: None Neuro: None Endocrine/Autoimmune: HyPERthyroidism (treated with methimazole) GI: Other : None HEENT: Chronic vision loss, Other Psych: None Musculoskeletal: None Derm: None - Past Surgical History Past Surgical History: No General: Colonoscopy, Other (lymph node biopsy) - Present Medications Home Medications: Ambulatory Orders Medication Instructions Recorded Confirmed methIMAzole [Methimazole] 5 mg PO DAILY 03/22/20 05/02/20 oxyCODONE [Roxicodone] 5 mg PO Q4-6H 04/09/20 05/02/20 Lidocaine/Prilocain 2.5% Cream 5 applic TOP UD #1 tube 04/12/20 05/02/20 [Emla 2.5% Cream] OLANZapine [Olanzapine] 5 mg PO UD #24 tablet 04/12/20 05/02/20 Ondansetron [Ondansetron Odt] 8 mg PO BID #30 tab.rapdis 04/12/20 05/02/20 Prochlorperazine Maleate 10 mg PO Q6HR PRN #30 tab 04/12/20 05/02/20 [Compazine] Morphine Sulfate [Morphine Sulfate 15 mg PO Q12H #60 tablet.er 04/14/20 05/02/20 ER] - Allergies Allergies/Adverse Reactions: Allergies Allergy/AdvReac Type Severity Reaction Status Date / Time No Known Drug Allergies Allergy Verified 05/02/20 22:36 - Social History Does the pt smoke?: No Smoking Status: Never smoker Does the pt drink ETOH?: Yes Does the pt have substance abuse?: No - POLST Patient has POLST: No PD ED PE NORMAL - Vitals Vital signs reviewed: Yes - General General: Alert and oriented X 3, No acute distress, Well developed/nourished - HEENT HEENT: Moist mucous membranes - Neck Neck: Supple, no meningeal sign - Cardiac Cardiac: No murmur - Respiratory Respiratory: No respiratory distress, Clear bilaterally - Abdomen Abdomen: Soft, Non tender - Derm Derm: Normal color, Warm and dry - Extremities Extremities: No edema - Neuro Neuro: Alert and oriented X 3 PD ED PE EXPANDED - Cardiac Cardiac: Tachy, Regular Rhythm Results - Vitals Vitals: Vital Signs - 24 hr 05/02/20 05/02/20 05/02/20 22:36 22:57 23:03 Temperature 37.9 C H 39.4 C H 38.7 C H Heart Rate 120 H 115 H 112 H Respiratory 16 18 Rate Blood Pressure 170/80 H 119/70 127/71 O2 Saturation 98 99 99 05/02/20 05/02/20 05/02/20 23:20 23:30 23:33 Temperature 38.7 C H 38.7 C H 38.7 C H Heart Rate 115 H 115 H 115 H Respiratory 18 18 18 Rate Blood Pressure 107/54 L 107/54 L 107/54 L O2 Saturation 99 99 99 05/03/20 05/03/20 05/03/20 00:00 00:30 01:00 Temperature 38.3 C H 38.0 C H 38.0 C H Heart Rate 114 H 116 H 117 H Respiratory 14 16 98 H Rate Blood Pressure 98/56 L 143/77 H 124/73 O2 Saturation 97 98 Oxygen O2 Source Room air - Labs Labs: Laboratory Tests 11/15/20 11/15/20 11/15/20 23:20 23:20 23:20 WBC 0.9 L* RBC 3.36 L Hgb 9.2 L Hct 27.5 L MCV 81.8 MCH 27.4 MCHC 33.5 RDW 11.8 L Plt Count 3 L* Neut # (Auto) Not Reportable Lymph # (Auto) Not Reportable [place] # (Auto) Not Reportable Eos # (Auto) Not Reportable Baso # (Auto) Not Reportable Absolute Nucleated RBC Not Reportable Total Counted 100 Band Neuts % (Manual) 0 Abnorm Lymph % (Manual) 0 Nucleated RBC % Not Reportable Neutrophils # (Manual) Not Reportable Lymphocytes # (Manual) 0.9 L Monocytes # (Manual) 0.0 Eosinophils # (Manual) 0.0 Basophils # (Manual) 0.0 Differential Comment MANUAL DIFFERENTIAL WBC Morphology NORMAL RAVEN Platelet Estimate DECREASED (<130,000) Platelet Morphology NORMAL APPEARANCE RBC Morph Micro Appear NORMAL APPEARANCE Sodium 132 L Potassium 3.6 Chloride 98 L Carbon Dioxide 25 Anion Gap 9.0 BUN 13 Creatinine 0.4 Estimated GFR (MDRD) 170 Glucose 125 H Lactic Acid 1.0 Calcium 8.6 Total Bilirubin 1.3 H AST 35 ALT 43 Alkaline Phosphatase 55 Total Protein 6.8 Albumin 3.2 Globulin 3.6 Albumin/Globulin Ratio 0.9 L Urine Color Urine Clarity Urine pH Ur Specific [place] Urine Protein Urine Glucose (UA) Urine Ketones Urine Occult Blood Urine Nitrite Urine Bilirubin Urine Urobilinogen Ur Leukocyte Esterase Urine RBC Urine WBC Ur Squamous Epith Cells Urine Bacteria Urine Mucus Urine Culture Comments Urine HCG, Qual Nasal Adenovirus (PCR) Nasal B. parapertussis DNA (PCR) Nasal Coronavir 229E PCR Nasal Coronavir HKU1 PCR Nasal Coronavir NL63 PCR Nasal Coronavir OC43 PCR Nasal Enterovir/Rhinovir PCR Nasal Influenza B PCR Nasal Parainfluen 1 PCR Nasal Parainfluen 2 PCR Nasal Parainfluen 3 PCR Nasal Parainfluen 4 PCR Nasal RSV (PCR) Nasal B.pertussis DNA PCR Nasal C.pneumoniae (PCR) Nik Human Metapneumo PCR Nasal M.pneumoniae (PCR) Nasal SARS-CoV-2 (PCR) Blood Type Recheck 05/02/20 05/02/20 05/03/20 23:20 23:20 00:14 WBC RBC Hgb Hct MCV MCH MCHC RDW Plt Count Neut # (Auto) Lymph # (Auto) [place] # (Auto) Eos # (Auto) Baso # (Auto) Absolute Nucleated RBC Total Counted Band Neuts % (Manual) Abnorm Lymph % (Manual) Nucleated RBC % Neutrophils # (Manual) Lymphocytes # (Manual) Monocytes # (Manual) Eosinophils # (Manual) Basophils # (Manual) Differential Comment WBC Morphology Platelet Estimate Platelet Morphology RBC Morph Micro Appear Sodium Potassium Chloride Carbon Dioxide Anion Gap BUN Creatinine Estimated GFR (MDRD) Glucose Lactic Acid Calcium Total Bilirubin AST ALT Alkaline Phosphatase Total Protein Albumin Globulin Albumin/Globulin Ratio Urine Color YELLOW Urine Clarity CLEAR Urine pH 5.5 Ur Specific [place] >=1.030 H Urine Protein NEGATIVE Urine Glucose (UA) NEGATIVE Urine Ketones NEGATIVE Urine Occult Blood SMALL H Urine Nitrite NEGATIVE Urine Bilirubin NEGATIVE Urine Urobilinogen 1 (NORMAL) Ur Leukocyte Esterase NEGATIVE Urine RBC 6-10 H Urine WBC 0-3 Ur Squamous Epith Cells MOD Squamous H Urine Bacteria Few Urine Mucus Marked Strands Urine Culture Comments NOT INDICATED Urine HCG, Qual Nasal Adenovirus (PCR) NOT DETECTED Nasal B. parapertussis DNA (PCR) NOT DETECTED Nasal Coronavir 229E PCR NOT DETECTED Nasal Coronavir HKU1 PCR NOT DETECTED Nasal Coronavir NL63 PCR NOT DETECTED Nasal Coronavir OC43 PCR NOT DETECTED Nasal Enterovir/Rhinovir PCR NOT DETECTED Nasal Influenza B PCR NOT DETECTED Nasal Parainfluen 1 PCR NOT DETECTED Nasal Parainfluen 2 PCR NOT DETECTED Nasal Parainfluen 3 PCR NOT DETECTED Nasal Parainfluen 4 PCR NOT DETECTED Nasal RSV (PCR) NOT DETECTED Nasal B.pertussis DNA PCR NOT DETECTED Nasal C.pneumoniae (PCR) NOT DETECTED Nik Human Metapneumo PCR NOT DETECTED Nasal M.pneumoniae (PCR) NOT DETECTED Nasal SARS-CoV-2 (PCR) NOT DETECTED Blood Type Recheck O POSITIVE 05/03/20 00:14 WBC RBC Hgb Hct MCV MCH MCHC RDW Plt Count Neut # (Auto) Lymph # (Auto) [place] # (Auto) Eos # (Auto) Baso # (Auto) Absolute Nucleated RBC Total Counted Band Neuts % (Manual) Abnorm Lymph % (Manual) Nucleated RBC % Neutrophils # (Manual) Lymphocytes # (Manual) Monocytes # (Manual) Eosinophils # (Manual) Basophils # (Manual) Differential Comment WBC Morphology Platelet Estimate Platelet Morphology RBC Morph Micro Appear Sodium Potassium Chloride Carbon Dioxide Anion Gap BUN Creatinine Estimated GFR (MDRD) Glucose Lactic Acid Calcium Total Bilirubin AST ALT Alkaline Phosphatase Total Protein Albumin Globulin Albumin/Globulin Ratio Urine Color Urine Clarity Urine pH Ur Specific [place] >1.030 Urine Protein Urine Glucose (UA) Urine Ketones Urine Occult Blood Urine Nitrite Urine Bilirubin Urine Urobilinogen Ur Leukocyte Esterase Urine RBC Urine WBC Ur Squamous Epith Cells Urine Bacteria Urine Mucus Urine Culture Comments Urine HCG, Qual NEGATIVE Nasal Adenovirus (PCR) Nasal B. parapertussis DNA (PCR) Nasal Coronavir 229E PCR Nasal Coronavir HKU1 PCR Nasal Coronavir NL63 PCR Nasal Coronavir OC43 PCR Nasal Enterovir/Rhinovir PCR Nasal Influenza B PCR Nasal Parainfluen 1 PCR Nasal Parainfluen 2 PCR Nasal Parainfluen 3 PCR Nasal Parainfluen 4 PCR Nasal RSV (PCR) Nasal B.pertussis DNA PCR Nasal C.pneumoniae (PCR) Nik Human Metapneumo PCR Nasal M.pneumoniae (PCR) Nasal SARS-CoV-2 (PCR) Blood Type Recheck PD MEDICAL DECISION MAKING - ED course Complexity details: reviewed old records, reviewed results, re-evaluated patient, considered differential, d/w patient ED course: D/W Dr. Thompson (collection technician hem/onc), recommends admission to hospitalist service. She recommends platelet transfusion to raise platelets to >10 (she says one bag will likely achieve this). Using the [facility] sepsis pathway, I had already ordered vancomycin, cefepime, and flagyl and these were given. Dr. Thompson says that cefepime alone should be sufficient coverage in the inpatient setting. She also recommends GCSF if available but that this can be done later in the inpatient setting. D/W Dr. De La Garza, will admit to hospitalist service. Departure - Departure Disposition: [facility] DC/Xfer Clinical Impression: Neutropenic fever, Pancytopenia Condition: Stable Discharge Date/Time: 05/03/20 02:12
[2020-05-02] MEDS ORDERED: metroNIDAZOLE 500 MG/100 ML 500 MG/100 ML BAG IV STA (23:03)
[2020-05-02] MEDS ORDERED: VANCOMYCIN INJ 1.75 GM in SODIUM CHLORIDE 0.9% 500 ML IV STA (23:03)
[2020-05-02] MEDS ORDERED: CEFEPIME 2 GM in SODIUM CHLORIDE 0.9% MINIBAG 100 ML IV STA (23:03)
[2020-05-02] MEDS ORDERED: VANCOMYCIN 1 GM VIAL ONE (23:48)
[2020-05-02 23:52] LABS: EOSINOPHILS % (AUTO) 1.1 %; HGB - HEMOGLOBIN 9.2 g/dL (12.0-16.0); LYMPHOCYTES % (AUTO) 91.2 %; MEAN CORPUSCULAR HEMOGLOBIN 27.4 pg (27.0-31.0); MEAN CORPUSCULAR HGB CONC 33.5 g/dL (32.0-36.0); MEAN CORPUSCULAR VOLUME 81.8 fL (81.0-99.0); MONOCYTES % (AUTO) 6.6 %; NEUTROPHILS % (AUTO) 1.1 %; RED BLOOD COUNT 3.36 10^6/uL (4.20-5.40); RED CELL DISTRIBUTION WIDTH 11.8 % (12.0-15.0)
[2020-05-02 23:56] LABS: ALBUMIN 3.2 g/dL (3.2-5.5); ALBUMIN/GLOBULIN RATIO 0.9 (1.0-2.2); BILIRUBIN,TOTAL 1.3 mg/dL (0.2-1.0); CALCIUM 8.6 mg/dL (8.5-10.3); CREATININE 0.4 mg/dL (0.4-1.0); TOTAL PROTEIN 6.8 g/dL (6.7-8.2)
[2020-05-03 00:09] LABS: PLT - PLATELET COUNT 3 10^3/uL (130-450); WHITE BLOOD COUNT 0.9 x10^3/uL (4.8-10.8)
[2020-05-03 00:10] LABS: ABNORMAL LYMPHS % (MANUAL) 0 %; BAND NEUTROPHILS % (MANUAL) 0 %
[2020-05-03 00:16] LABS: DIFFERENTIAL COMMENT MANUAL DIFFERENTIAL; LYMPHOCYTES # (MANUAL) 0.9 10^3/uL (1.5-3.5); LYMPHOCYTES % (MANUAL) 97 %; PLATELET ESTIMATE, MANUAL DECREASED (<130,000) (NORMAL); PLATELET MORPHOLOGY NORMAL APPEARANCE (NORMAL); RBC MORPHOLOGY (MULTIPLE) NORMAL APPEARANCE (NORMAL)
[2020-05-03] MEDS ORDERED: ONDANSETRON ODT 4 MG TABLET TL STA (00:22)
[2020-05-03] MEDS ORDERED: ONDANSETRON 4 MG/2 ML VIAL IVP STA (00:24)
[2020-05-03 00:26] LABS: BILIRUBIN,URINE NEGATIVE (NEGATIVE); GLUCOSE, URINE (UA) NEGATIVE (NEGATIVE); KETONES,URINE (UA) NEGATIVE (NEGATIVE); LEUKOCYTE ESTERASE, URINE NEGATIVE (NEGATIVE); NITRITE,URINE NEGATIVE (NEGATIVE); OCCULT BLOOD,URINE SMALL (NEGATIVE); PH,URINE 5.5 PH (5.0-7.5); PROTEIN,URINE NEGATIVE (NEGATIVE); UROBILINOGEN,URINE 1 (NORMAL) E.U./dL (NORMAL)
[2020-05-03 00:28] LABS: CLARITY,URINE CLEAR (CLEAR)
[2020-05-03 00:30] LABS: C. PNEUMONIAE- RESP PCR PANEL NOT DETECTED
[2020-05-03] MEDS ORDERED: ONDANSETRON 4 MG/2 ML VIAL ONE (00:31)
[2020-05-03 00:37] LABS: BACTERIA,URINE Few /HPF (None Seen); MUCUS,URINE Marked Strands; SQUAMOUS EPITHELIAL CELL,UR MOD Squamous (<= Few)
[2020-05-03] MEDS ORDERED: ONDANSETRON ODT 4 MG TABLET TL PRN (01:23)
--- NOTE | 2020-05-03 01:38 | HISTORY & PHYSICAL EXAMINATION ---
Chief Complaint - Chief Complaint Chief Complaint: Fever History of Present Illness - Admitted From Admitted From:: Home - History Obtained From Records Reviewed: Yes History obtained from: Patient, ER Physician, EMR - History of Present Illness HPI Comment/Other: This is a very pleasant 49-year-old female with a past medical history significant for hyperthyroidism, history of colon cancer, and a recent diagnosis of neuroendocrine tumor of unknown primary. She presents today after she took her temperature at home and found it was elevated at 101.4 C. She called her primary care provider who asked her to go to the emergency department for ev aluation. She has just been diagnosed with neuroendocrine tumor and is followed by oncology here at the [facility]. She was started on a Etoposide, carboplatin, atezolizumab and received 3 days of treatment on April, , . She states she has been feeling a little fatigued the past few days and weaker overall. She took her temperature today because she felt a little warm and she was told during her chemotherapy classes to check her temperature periodically. She reports occasional chills but no rigors. She denies any chest pain, dyspnea. Reports no cough. She does have abdominal pain which is chronic for her. She reports no diarrhea but does endorse constipation which she attributes to the morphine that she takes. She denies any dysuria, urgency, frequency, hematuria. She does report vaginal discharge of a clear fluid that is occasionally yellow. She states that she changes her pad 4 times a day. She was seen by Dr. Morrison on an outpatient basis and was told this was due to necrotic tissue from the cancer. She reports no erythema or any redness of her skin. She did notice she had a small nosebleed yesterday evening. She also has a small bruise over her left hand. She is also noticed that over the past week or so she has had some redness and red/purple dots over her bilateral cheeks. She does report feeling a little dizzy and lightheaded. In the emergency department, she was found to be febrile temperature of 39.4 C. Her heart rate was 115. Her blood pressure is 119/70. She was not tachypneic and saturating well on room air. Labs were significant for a white count of 0.9 with a neutrophil count of 0.0. Her hemoglobin was decreased at 9.2. Her platelet count was 3. Sodium was 132. Lactic acid was normal at 1.0. Respiratory PCR panel was negative. She was given vancomycin, cefepime, Flagyl IV in the emergency department. The emergency department provider spoke with the oncologist on-call for the [facility] and they agreed with admission. They recommended treating with cefepime IV and giving the patient a transfusion of platelets. They also recommended starting Neupogen. Given the above findings, medicine was consulted for admission. I did discuss goals of care with the patient and she would like to be a full code. History - Past Medical History Cardiovascular: reports: Hypertension Respiratory: reports: None Neuro: reports: None Endocrine/Autoimmune: reports: HyPERthyroidism GI: reports: Other (Neuroendocrine tumor of unknown primary.) : reports: None HEENT: reports: Chronic vision loss Psych: reports: None Musculoskeletal: reports: None Derm: reports: None MRSA Hx?: No - Past Surgical History General: reports: Colonoscopy, Other (Lymph node biopsy) - Family & Social History Family History Comment/Other: She reports her father from colon cancer. She has another sister who also had colon cancer. No family history of heart disease or lung disease. Living arrangement: At home Living Situation: With spouse/s.o. Social History Notes: She lives at home with her , Alfonso. 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 She has never smoked. She drinks alcohol socially. - POLST Patient has POLST: No Meds/Allgy - Home Medications Home Medications: Ambulatory Orders Medication Instructions Recorded Confirmed methIMAzole [Methimazole] 5 mg PO DAILY 03/22/20 05/02/20 oxyCODONE [Roxicodone] 5 mg PO Q4-6H 04/09/20 05/02/20 Lidocaine/Prilocain 2.5% Cream 5 applic TOP UD #1 tube 04/12/20 05/02/20 [Emla 2.5% Cream] OLANZapine [Olanzapine] 5 mg PO UD #24 tablet 04/12/20 05/02/20 Ondansetron [Ondansetron Odt] 8 mg PO BID #30 tab.rapdis 04/12/20 05/02/20 Prochlorperazine Maleate 10 mg PO Q6HR PRN #30 tab 04/12/20 05/02/20 [Compazine] Morphine Sulfate [Morphine Sulfate 15 mg PO Q12H #60 tablet.er 04/14/20 05/02/20 ER] - Allergies Allergies/Adverse Reactions: Allergies Allergy/AdvReac Type Severity Reaction Status Date / Time No Known Drug Allergies Allergy Verified 05/02/20 22:36 Review of Systems - Constitutional Constitutional: reports: Fatigue, Fever, Chills, Weakness. denies: Poor appetite - Eyes Eyes: reports: Blurred vision (Attributes it to old glasses.) - Ears, Nose & Throat Ears, Nose & Throat: reports: Nosebleeds. denies: Nasal discharge, Nasal congestion, Mouth lesions, Bleeding gums - Cardiovascular Cariovascular: reports: Lightheadedness. denies: Chest pain, Edema, Exertional dyspnea, Decr. exercise tolerance - Respiratory Respiratory: denies: Cough, Sputum production, SOB at rest, SOB with exertion - Gastrointestinal Gastrointestinal: reports: Abdominal pain, Constipation. denies: Diarrhea, Rectal bleeding, Bloody stools, Nausea, Vomiting - Genitourinary Genitourinary: reports: Other (Vaginal discharge.). denies: Dysuria, Frequency, Urgency, Hematuria - Musculoskeletal Musculoskeletal: denies: Back pain, Limited range of motion - Integumentary Integumentary: reports: Lesions, Pigment changes. denies: Rash - Neurological Neurological: reports: General weakness. denies: Focal weakness, Numbness - Hematologic/Lymphatic Hematologic/Lymphatic: reports: Bruising, Petechiae - All Other Systems All Other Systems: reports: Reviewed and negative Prior Level of Functionality: She is independent with her ADLs. Exam - Vital Signs Reviewed Vital Signs: Yes Vital Signs: Vital Signs x48h Temp Pulse Resp BP Pulse Ox 05/03/20 01:00 38.0 C H 117 H 98 H 124/73 05/03/20 00:30 38.0 C H 116 H 16 143/77 H 98 05/03/20 00:00 38.3 C H 114 H 14 98/56 L 97 05/02/20 23:33 38.7 C H 115 H 18 107/54 L 99 05/02/20 23:30 38.7 C H 115 H 18 107/54 L 99 05/02/20 23:20 38.7 C H 115 H 18 107/54 L 99 05/02/20 23:03 38.7 C H 112 H 127/71 99 05/02/20 22:57 39.4 C H 115 H 18 119/70 99 05/02/20 22:36 37.9 C H 120 H 16 170/80 H 98 - Physical Exam General Appearance: positive: No acute distress, Alert Eyes Bilateral: positive: Normal inspection, Conjunctivae nml ENT: positive: ENT inspection nml. negative: Oral lesions, Dry mucous membranes Neck: positive: Nml inspection Respiratory: positive: No respiratory distress, Other (Port-A-Cath noted over the left chest wall without any surrounding erythema or tenderness.). negative: Wheezes, Rales Cardiovascular: positive: Tachycardia. negative: Irregularly irregular, Bradycardia, Systolic murmur Abdomen: positive: Non-tender, No distention, Other. negative: Tenderness, Guarding, Rebound Skin: positive: Warm, Dry, Other (No obvious erythema noted. She does have small amount of purpura/petechiae over her bilateral cheeks. There is a small ecchymotic area over the medial aspect of her left hand.) Extremities: positive: Full ROM, No pedal edema Neurologic/Psychiatric: positive: Oriented x3. negative: Disoriented to person, Disoriented to place, Disoriented to time Conclusion/Plan - Problem List (1) Neutropenic fever Conclusion/Plan: WBC is less than 1 and her ANC is 0.0. She presents with fever of 39.4. There is no obvious source of infection at this time. Urinalysis does not suggest infection and she has no symptoms. The Port-A-Cath site is without erythema or tenderness. There is no obvious cellulitis. We will continue her on cefepime IV empirically. We will check MRSA screen. If she does not improve over next 24 to 40 hours, we will consider adding vancomycin IV. Follow-up blood cultures. Check chest x-ray. We will start her on Neupogen tomorrow want to discuss with pharmacy as this is not available in [facility] at this moment. Neutropenic diet. (2) Pancytopenia Conclusion/Plan: This is likely secondary to the chemotherapy. She is anemic with a hemoglobin of 9.2 and her platelet count is quite decreased at 3. She does have evidence of petechiae and purpura but no obvious or significant bleeding noted. Oncology did recommend transfusion so we will give her platelets today. We will monitor for evidence of bleeding. (3) Neuroendocrine carcinoma metastatic to multiple sites Conclusion/Plan: She unfortunately has metastatic neuroendocrine cancer of unknown primary. She is followed here at the [facility] [place] clinic by oncology and is on etoposide, carboplatin, atezolizumab. She is now admitted with neutropenic fever. We will continue her home morphine and oxycodone for pain. Continue outpatient follow-up with oncology. (4) Hyperthyroidism Conclusion/Plan: Continue home methimazole. - Lab Results Lab results reviewed: Yes Fish Bones: 05/02/20 23:20 05/02/20 23:20 Core Measures - Anticipated LOS I expect patient to be DC'd or transferred within 96 hours.: Yes - Issues Hospital Issues and Management Plan: 49-year-old female with metastatic neuroendocrine cancer on chemotherapy presents with neutropenic fever and pancytopenia. We will admit for IV antibiotics and transfusion of platelets as well as administration of Neupogen. - DVT/VTE - Prophylaxis VTE/DVT Device ordered at admit?: Yes VTE/DVT Prophylaxis med ordered at admit?: No Not Ordered - Medical Reason: Contraindicated
[2020-05-03] MEDS ORDERED: LACTATED RINGERS 1,000 ML IV SCH (02:00)
[2020-05-03 02:58] LABS: HCG UR QUAL NEGATIVE
[2020-05-03] MEDS: ONDANSETRON 4 MG/2 ML VIAL IVP PRN ×3 (03:38→23:03)
[2020-05-03] MEDS: SODIUM CHLORIDE FLUSH 0.9% 10 ML SYRINGE IVP PRN ×4 (05:18→23:03)
[2020-05-03 05:38] LABS: HGB - HEMOGLOBIN 7.5 g/dL (12.0-16.0); LYMPHOCYTES % (AUTO) 90.1 %; MEAN CORPUSCULAR HEMOGLOBIN 26.5 pg (27.0-31.0); MEAN CORPUSCULAR HGB CONC 32.2 g/dL (32.0-36.0); MEAN CORPUSCULAR VOLUME 82.3 fL (81.0-99.0); MONOCYTES % (AUTO) 8.6 %; NEUTROPHILS % (AUTO) 1.3 %; RED BLOOD COUNT 2.83 10^6/uL (4.20-5.40); RED CELL DISTRIBUTION WIDTH 11.7 % (12.0-15.0)
[2020-05-03 06:00] LABS: PLT - PLATELET COUNT 2 10^3/uL (130-450); WHITE BLOOD COUNT 0.8 x10^3/uL (4.8-10.8)
[2020-05-03 06:01] LABS: ABNORMAL LYMPHS % (MANUAL) 0 %
[2020-05-03] MEDS: CEFEPIME 2 GM in SODIUM CHLORIDE 0.9% MINIBAG 100 ML IV SCH ×3 (06:06→21:11)
[2020-05-03 06:08] LABS: CALCIUM 8.4 mg/dL (8.5-10.3); CREATININE 0.4 mg/dL (0.4-1.0); MAGNESIUM 1.5 mg/dL (1.7-2.8); PHOSPHORUS 3.9 mg/dL (2.5-4.6)
[2020-05-03 06:27] LABS: BASOPHILS % (MANUAL) 1 %; LYMPHOCYTES # (MANUAL) 0.7 10^3/uL (1.5-3.5); LYMPHOCYTES % (MANUAL) 91 %
[2020-05-03 06:28] LABS: DIFFERENTIAL COMMENT MANUAL DIFFERENTIAL; PLATELET ESTIMATE, MANUAL DECREASED (<130,000) (NORMAL); PLATELET MORPHOLOGY NORMAL APPEARANCE (NORMAL); RBC MORPHOLOGY (MULTIPLE) NORMAL APPEARANCE (NORMAL)
--- NOTE | 2020-05-03 08:01 | XRAY Report ---
PROCEDURE: Chest 1 View X-Ray INDICATIONS: Fever. Neutropenia. TECHNIQUE: One view of the chest was acquired. COMPARISON: CT chest 03/17/2020 FINDINGS: Surgical changes and devices: None. Lungs and pleura: No pleural effusions or pneumothorax. Lungs are clear. Mediastinum: Mediastinal contours appear normal. Heart size is normal. Bones and chest wall: No suspicious bony lesions. Overlying soft tissues appear unremarkable. Left Port-A-Cath is present. IMPRESSION: No acute pulmonary process. Reviewed by: Teresa Iglesias MD on 05/03/2020 8:00 AM PST Approved by: Teresa Iglesias MD on 05/03/2020 8:00 AM PST Station ID: [id number]
[2020-05-03] MEDS: methIMAzole 5 MG TABLET PO SCH (08:47)
[2020-05-03] MEDS: MORPHINE ER 15 MG TABLET PO SCH (08:47)
[2020-05-03] MEDS: SODIUM CHLORIDE FLUSH 0.9% 10 ML SYRINGE IVP SCH ×2 (08:48→16:17)
[2020-05-03] MEDS: FILGRASTIM-SNDZ 300 MCG/0.5 ML SYRINGE SUBQ SCH (10:38)
--- NOTE | 2020-05-03 12:07 | PHARMACY PROGRESS NOTE ---
- Best Possible Medication History Admit Date and Time: 05/03/20 0123 Processed by: Nursing Medication History completed: Yes Patient Interview: Completed Secondary Source(s): Pharmacy records, Insurance records As the person ultimately responsible for medication therapy, providers are able to order a medication from an existing home medication list in [facility] via the "Reconcile Routine" prior to Confirmation of that medication by account support analyst. Such practice is discouraged except when the physician, in their clinical judgment, deems that a medical need exists for a medication without regard to previous use.
[2020-05-03] MEDS: ACETAMINOPHEN 325 MG TABLET PO PRN ×2 (13:52→21:23)
[2020-05-03] MEDS: POTASSIUM CHLORIDE 20 MEQ TABLET PO ONE ×2 (13:56→14:56)
[2020-05-03 21:58] LABS: BILIRUBIN,URINE NEGATIVE (NEGATIVE); GLUCOSE, URINE (UA) NEGATIVE (NEGATIVE); KETONES,URINE (UA) NEGATIVE (NEGATIVE); LEUKOCYTE ESTERASE, URINE NEGATIVE (NEGATIVE); NITRITE,URINE NEGATIVE (NEGATIVE); OCCULT BLOOD,URINE TRACE-LYSE (NEGATIVE); PROTEIN,URINE NEGATIVE (NEGATIVE); UROBILINOGEN,URINE 0.2 (NORMAL) E.U./dL (NORMAL)
[2020-05-03 21:59] LABS: CLARITY,URINE CLEAR (CLEAR)
[2020-05-03] MEDS ORDERED: MAGNESIUM SULFATE 1 GM in SODIUM CHLORIDE 0.9% 50 ML IV ONE (22:23)
[2020-05-04] MEDS: POTASSIUM CHLOR 10 MEQ/100 ML 10 MEQ/100 ML BAG IV SCH ×3 (00:01→02:05)
[2020-05-04] MEDS: SODIUM CHLORIDE FLUSH 0.9% 10 ML SYRINGE IVP SCH ×3 (00:01→16:37)
[2020-05-04 05:26] LABS: EOSINOPHILS % (AUTO) 1.6 %; HGB - HEMOGLOBIN 7.6 g/dL (12.0-16.0); LYMPHOCYTES % (AUTO) 80.3 %; MEAN CORPUSCULAR HGB CONC 32.1 g/dL (32.0-36.0); MONOCYTES % (AUTO) 16.4 %; NEUTROPHILS % (AUTO) 1.7 %; RED BLOOD COUNT 2.82 10^6/uL (4.20-5.40); RED CELL DISTRIBUTION WIDTH 11.7 % (12.0-15.0)
[2020-05-04 05:29] LABS: PLT - PLATELET COUNT 17 10^3/uL (130-450); WHITE BLOOD COUNT 0.6 x10^3/uL (4.8-10.8)
[2020-05-04 05:30] LABS: ABNORMAL LYMPHS % (MANUAL) 0 %; BAND NEUTROPHILS % (MANUAL) 0 %
[2020-05-04 05:32] LABS: CALCIUM 8.5 mg/dL (8.5-10.3); CREATININE 0.4 mg/dL (0.4-1.0); MAGNESIUM 1.8 mg/dL (1.7-2.8); PHOSPHORUS 2.7 mg/dL (2.5-4.6)
[2020-05-04] MEDS: CEFEPIME 2 GM in SODIUM CHLORIDE 0.9% MINIBAG 100 ML IV SCH ×3 (05:33→21:16)
[2020-05-04] MEDS: ONDANSETRON 4 MG/2 ML VIAL IVP PRN (05:34)
[2020-05-04 05:51] LABS: DIFFERENTIAL COMMENT MANUAL DIFFERENTIAL; LYMPHOCYTES # (MANUAL) 0.5 10^3/uL (1.5-3.5); LYMPHOCYTES % (MANUAL) 90 %; MONOCYTES # (MANUAL) 0.1 10^3/uL (0.0-1.0); PLATELET ESTIMATE, MANUAL DECREASED (<130,000) (NORMAL); PLATELET MORPHOLOGY NORMAL APPEARANCE (NORMAL); RBC MORPHOLOGY (MULTIPLE) NORMAL APPEARANCE (NORMAL)
[2020-05-04] MEDS ORDERED: POTASSIUM CHLORIDE 20 MEQ TABLET PO ONE (08:10)
[2020-05-04] MEDS: MORPHINE ER 15 MG TABLET PO SCH ×2 (08:28→21:16)
[2020-05-04] MEDS: methIMAzole 5 MG TABLET PO SCH (08:28)
[2020-05-04] MEDS: FILGRASTIM-SNDZ 300 MCG/0.5 ML SYRINGE SUBQ SCH (08:28)
[2020-05-04] MEDS ORDERED: POTASSIUM CHLORIDE 20 MEQ/15 ML UDC PO SCH (11:00)
--- NOTE | 2020-05-04 11:24 | PROVIDER PROGRESS NOTE ---
Assessment/Plan - Problem List (1) Neutropenic fever Assessment/Plan: 05/04 Patient still has low degree 37.9 fever on yesterday afternoon. Temperature is improved and trend down. Blood culture is negative for bacteremia. Patient has no obvious infection resource. 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 Patient hemoglobin is 7.6, stable. patient's platelets is 17 after transfusion 1 units of platelets.We will continue closely monitor patient, precaution and closely monitor patient bleeding (3) Neuroendocrine carcinoma metastatic to multiple sites Conclusion/Plan: She unfortunately has metastatic neuroendocrine cancer of unknown primary. She is followed here at the [facility] clinic by oncology and is on chemotherapy: etoposide, carboplatin, atezolizumab. She is now admitted with neutropenic fever. We will hold chemotherapy now, advise pt continue closely follow-up her oncologist. (4) Hyperthyroidism Conclusion/Plan: stable. Continue home methimazole. - Current Meds Current Meds: Current Medications Generic Name Dose Route Start Last Admin Trade Name Freq PRN Reason Stop Dose Admin Acetaminophen 650 mg 05/03/20 01:23 05/03/20 21:23 Tylenol PO 650 mg Q4HR PRN Administration Pain 1 to 4 Filgrastim 300 mcg 05/03/20 10:00 05/04/20 08:28 Zarxio SUBQ 300 mcg DAILY MITESH Administration Heparin Sodium (Beef Lung) 30 - 50 unit 05/03/20 04:57 05/03/20 16:18 IVP 50 unit PRN PRN Administration Port Protocol (<24 hours) Cefepime HCl 2 gm/ Sodium 100 mls @ 200 mls/hr 05/03/20 06:00 05/04/20 06:22 Chloride IV Infused TID MITESH Infusion Methimazole 5 mg 05/03/20 09:00 05/04/20 08:28 Tapazole PO 5 mg DAILY MITESH Administration Morphine Sulfate 15 mg 05/03/20 09:00 05/04/20 08:28 PO 15 mg DAILY MITESH Administration Ondansetron HCl 4 mg 05/03/20 01:23 05/04/20 05:34 Zofran Inj IVP 4 mg Q6HR PRN Administration Nausea / Vomiting Sodium Chloride 10 ml 05/03/20 01:23 05/03/20 23:03 Normal Saline Flush 0.9% IVP 10 ml PRN PRN Administration NEEDED PER PROVIDER ORDERS Sodium Chloride 10 ml 05/03/20 09:00 05/04/20 08:29 Normal Saline Flush 0.9% IVP 10 ml 0100,0900,1700 MITESH Administration Sodium Chloride 20 ml 05/03/20 04:57 05/03/20 05:18 Normal Saline Flush 0.9% IVP 20 ml PRN PRN Administration After Blood Draw - Lab Result Fish Bone Diagrams: 05/04/20 05:10 05/04/20 05:10 - Additional Planning My Orders: My Active Orders 05/04/20 11:00 Potassium Chloride Oral Soln 20 meq PO ONCE Subjective - Subjective Patient Reports: Feeling Better Nursing Reports: No Complaints Objective Vital Signs: Vital Signs - 24 hr 05/03/20 05/03/20 05/03/20 11:21 12:03 15:58 Temperature 37.1 C 37.1 C 37.2 C Heart Rate [ 94 94 96 Brachial] Respiratory 18 18 18 Rate Blood Pressure [Left Brachial artery] Blood Pressure 102/54 L 102/54 L 101/50 L [Right Brachial artery] O2 Saturation 99 99 99 05/03/20 05/04/20 05/04/20 21:00 00:08 04:46 Temperature 37.9 C H 37.1 C 36.7 C Heart Rate [ 100 92 115 H Brachial] Respiratory 18 17 18 Rate Blood Pressure 98/43 L 144/73 H [Left Brachial artery] Blood Pressure 124/56 L [Right Brachial artery] O2 Saturation 99 99 95 05/04/20 07:51 Temperature 37.4 C Heart Rate [ 99 Brachial] Respiratory 18 Rate Blood Pressure [Left Brachial artery] Blood Pressure 127/68 [Right Brachial artery] O2 Saturation 98 Oxygen O2 Source Room air I&O (Last 24 Hrs): Intake and Output Totals x24h 05/02/20 05/03/20 05/04/20 23:59 23:59 23:59 Intake Total 2609.000 807 Balance 2609.000 807 General: Alert, Oriented x3, No acute distress HEENT: Atraumatic Neck: Supple Lymphatic: no adenopathy Neuro: Alert, Non Focal, Oriented Times 3 Cardiovascular: Regular rate, Normal S1, Normal S2 Respiratory: Chest non-tender, No respiratory distress, Breath sounds nml Abdomen: Normal bowel sounds, Soft, No tenderness Extremities: Normal pulses Skin: No breakdown, No significant lesion - Results Results: Laboratory Results WBC 0.6 x10^3/uL (4.8-10.8) L* 05/04/20 05:10 RBC 2.82 10^6/uL (4.20-5.40) L 05/04/20 05:10 Hgb 7.6 g/dL (12.0-16.0) L 05/04/20 05:10 Hct 23.7 % (37.0-47.0) L 05/04/20 05:10 MCV 84.0 fL (81.0-99.0) 05/04/20 05:10 MCH 27.0 pg (27.0-31.0) 05/04/20 05:10 MCHC 32.1 g/dL (32.0-36.0) 05/04/20 05:10 RDW 11.7 % (12.0-15.0) L 05/04/20 05:10 Plt Count 17 10^3/uL (130-450) L* 05/04/20 05:10 Neut # (Auto) Not Reportable 05/04/20 05:10 Lymph # (Auto) Not Reportable 05/04/20 05:10 Geary # (Auto) Not Reportable 05/04/20 05:10 Eos # (Auto) Not Reportable 05/04/20 05:10 Baso # (Auto) Not Reportable 05/04/20 05:10 Absolute Nucleated RBC Not Reportable 05/04/20 05:10 Total Counted 100 05/04/20 05:10 Band Neuts % (Manual) 0 % (0-10) 05/04/20 05:10 Abnorm Lymph % (Manual) 0 % 05/04/20 05:10 Nucleated RBC % Not Reportable 05/04/20 05:10 Neutrophils # (Manual) Not Reportable 05/04/20 05:10 Lymphocytes # (Manual) 0.5 10^3/uL (1.5-3.5) L 05/04/20 05:10 Monocytes # (Manual) 0.1 10^3/uL (0.0-1.0) 05/04/20 05:10 Eosinophils # (Manual) 0.0 10^3/uL (0-0.7) 05/04/20 05:10 Basophils # (Manual) 0.0 10^3/uL (0-0.1) 05/04/20 05:10 Differential Comment MANUAL DIFFERENTIAL 05/04/20 05:10 WBC Morphology NORMAL APPEARANCE (NORMAL) 05/04/20 05:10 Platelet Estimate DECREASED (<130,000) (NORMAL) 05/04/20 05:10 Platelet Morphology NORMAL APPEARANCE (NORMAL) 05/04/20 05:10 RBC Morph Micro Appear NORMAL APPEARANCE (NORMAL) 05/04/20 05:10 Sodium 138 mmol/L (135-145) 05/04/20 05:10 Potassium 3.4 mmol/L (3.5-5.0) L 05/04/20 05:10 Chloride 104 mmol/L (101-111) 05/04/20 05:10 Carbon Dioxide 25 mmol/L (21-32) 05/04/20 05:10 Anion Gap 9.0 (6-13) 05/04/20 05:10 BUN 10 mg/dL (6-20) 05/04/20 05:10 Creatinine 0.4 mg/dL (0.4-1.0) 05/04/20 05:10 Estimated GFR (MDRD) 170 (>89) 05/04/20 05:10 Glucose 96 mg/dL (70-100) 05/04/20 05:10 Lactic Acid 1.0 mmol/L (0.5-2.2) 05/02/20 23:20 Calcium 8.5 mg/dL (8.5-10.3) 05/04/20 05:10 Phosphorus 2.7 mg/dL (2.5-4.6) 05/04/20 05:10 Magnesium 1.8 mg/dL (1.7-2.8) 05/04/20 05:10 Total Bilirubin 1.3 mg/dL (0.2-1.0) H 05/02/20 23:20 AST 35 IU/L (10-42) 05/02/20 23:20 ALT 43 IU/L (10-60) 05/02/20 23:20 Alkaline Phosphatase 55 IU/L (42-121) 05/02/20 23:20 Total Protein 6.8 g/dL (6.7-8.2) 05/02/20 23:20 Albumin 3.2 g/dL (3.2-5.5) 05/02/20 23:20 Globulin 3.6 g/dL (2.1-4.2) 05/02/20 23:20 Albumin/Globulin Ratio 0.9 (1.0-2.2) L 05/02/20 23:20 Urine Color YELLOW 05/03/20 21:50 Urine Clarity CLEAR (CLEAR) 05/03/20 21:50 Urine pH 6.0 PH (5.0-7.5) 05/03/20 21:50 Ur Specific [place] 1.015 (1.002-1.030) 05/03/20 21:50 Urine Protein NEGATIVE mg/dL (NEGATIVE) 05/03/20 21:50 Urine Glucose (UA) NEGATIVE mg/dL (NEGATIVE) 05/03/20 21:50 Urine Ketones NEGATIVE mg/dL (NEGATIVE) 05/03/20 21:50 Urine Occult Blood TRACE-LYSE (NEGATIVE) 05/03/20 21:50 Urine Nitrite NEGATIVE (NEGATIVE) 05/03/20 21:50 Urine Bilirubin NEGATIVE (NEGATIVE) 05/03/20 21:50 Urine Urobilinogen 0.2 (NORMAL) E.U./dL (NORMAL) 05/03/20 21:50 Ur Leukocyte Esterase NEGATIVE (NEGATIVE) 05/03/20 21:50 Urine RBC 6-10 /HPF (0-5) H 05/03/20 00:14 Urine WBC 0-3 /HPF (0-5) 05/03/20 00:14 Ur Squamous Epith Cells MOD Squamous (<= Few) H 05/03/20 00:14 Urine Bacteria Few /HPF (None Seen) 05/03/20 00:14 Urine Mucus Marked Strands 05/03/20 00:14 Ur Microscopic Review NOT INDICATED 05/03/20 21:50 Urine Culture Comments NOT INDICATED 05/03/20 21:50 Urine HCG, Qual NEGATIVE 05/03/20 00:14 Nasal Adenovirus (PCR) NOT DETECTED 05/02/20 23:20 Nasal B. parapertussis DNA (PCR) NOT DETECTED 05/02/20 23:20 Nasal Coronavir 229E PCR NOT DETECTED 05/02/20 23:20 Nasal Coronavir HKU1 PCR NOT DETECTED 05/02/20 23:20 Nasal Coronavir NL63 PCR NOT DETECTED 05/02/20 23:20 Nasal Coronavir OC43 PCR NOT DETECTED 05/02/20 23:20 Nasal Enterovir/Rhinovir PCR NOT DETECTED 05/02/20 23:20 Nasal Influenza B PCR NOT DETECTED 05/02/20 23:20 Nasal Parainfluen 1 PCR NOT DETECTED 05/02/20 23:20 Nasal Parainfluen 2 PCR NOT DETECTED 05/02/20 23:20 Nasal Parainfluen 3 PCR NOT DETECTED 05/02/20 23:20 Nasal Parainfluen 4 PCR NOT DETECTED 05/02/20 23:20 Nasal RSV (PCR) NOT DETECTED 05/02/20 23:20 Nasal Screen MRSA (PCR) NEGATIVE (NEGATIVE) 05/03/20 02:50 Nasal B.pertussis DNA PCR NOT DETECTED 05/02/20 23:20 Nasal C.pneumoniae (PCR) NOT DETECTED 05/02/20 23:20 Nik Human Metapneumo PCR NOT DETECTED 05/02/20 23:20 Nasal M.pneumoniae (PCR) NOT DETECTED 05/02/20 23:20 Nasal SARS-CoV-2 (PCR) NOT DETECTED 05/02/20 23:20 Blood Type O POSITIVE 05/03/20 01:54 Blood Type Recheck O POSITIVE 05/02/20 23:20 Antibody Screen NEGATIVE 05/03/20 01:54 - Procedures Procedures: Procedures EXCISION OF POST NECK SUBCU/FASCIA, OPEN APPROACH, DIAGN (03/25/20) ABX Reporting Has patient been on IV antibiotics over the past 48 hours?: Yes Current Medications - Current Medications Current Medications: Active Medications Acetaminophen (Tylenol) 650 mg PO Q4HR PRN PRN Reason: Pain 1 to 4 Last Admin: 05/03/20 21:23 Dose: 650 mg Documented by: Filgrastim (Zarxio) 300 mcg SUBQ DAILY [facility] Last Admin: 05/04/20 08:28 Dose: 300 mcg Documented by: Heparin Sodium (Beef Lung) () 30 - 50 unit IVP PRN PRN PRN Reason: Port Protocol (<24 hours) Last Admin: 05/03/20 16:18 Dose: 50 unit Documented by: Cefepime HCl 2 gm/ Sodium (Chloride) 100 mls @ 200 mls/hr IV TID [facility] Last Infusion: 05/04/20 06:22 Dose: Infused Documented by: Methimazole (Tapazole) 5 mg PO DAILY [facility] Last Admin: 05/04/20 08:28 Dose: 5 mg Documented by: Morphine Sulfate () 15 mg PO DAILY [facility] Last Admin: 05/04/20 08:28 Dose: 15 mg Documented by: Ondansetron HCl (Zofran Odt) 4 mg TL Q6HR PRN PRN Reason: Nausea / Vomiting Ondansetron HCl (Zofran Inj) 4 mg IVP Q6HR PRN PRN Reason: Nausea / Vomiting Last Admin: 05/04/20 05:34 Dose: 4 mg Documented by: Oxycodone HCl (Roxicodone) 5 mg PO Q4HR PRN PRN Reason: Pain 5 to 7 Potassium Chloride () 20 meq PO ONCE [facility] Stop: 05/04/20 12:00 Sodium Chloride (Normal Saline Flush 0.9%) 10 ml IVP PRN PRN PRN Reason: NEEDED PER PROVIDER ORDERS Last Admin: 05/03/20 23:03 Dose: 10 ml Documented by: Sodium Chloride (Normal Saline Flush 0.9%) 10 ml IVP 0100,0900,1700 [facility] Last Admin: 05/04/20 08:29 Dose: 10 ml Documented by: Sodium Chloride (Normal Saline Flush 0.9%) 20 ml IVP PRN PRN PRN Reason: After Blood Draw Last Admin: 05/03/20 05:18 Dose: 20 ml Documented by: methIMAzole [Methimazole] 5 mg PO DAILY 03/22/20 oxyCODONE [Roxicodone] 5 mg PO Q4-6H 04/09/20
[2020-05-04] MEDS: oxyCODONE 5 MG TABLET PO PRN ×2 (13:29→17:27)
[2020-05-04] MEDS: ACETAMINOPHEN 325 MG TABLET PO PRN (16:37)
[2020-05-05] MEDS: oxyCODONE 5 MG TABLET PO PRN (00:06)
[2020-05-05] MEDS: ACETAMINOPHEN 325 MG TABLET PO PRN ×2 (00:06→08:58)
[2020-05-05] MEDS: SODIUM CHLORIDE FLUSH 0.9% 10 ML SYRINGE IVP SCH ×3 (02:59→17:04)
[2020-05-05] MEDS: SODIUM CHLORIDE FLUSH 0.9% 10 ML SYRINGE IVP PRN ×2 (05:21)
[2020-05-05] MEDS: CEFEPIME 2 GM in SODIUM CHLORIDE 0.9% MINIBAG 100 ML IV SCH ×3 (05:22→21:05)
[2020-05-05 05:52] LABS: EOSINOPHILS % (AUTO) 2.7 %; HGB - HEMOGLOBIN 7.8 g/dL (12.0-16.0); MEAN CORPUSCULAR HEMOGLOBIN 27.1 pg (27.0-31.0); MEAN CORPUSCULAR HGB CONC 32.2 g/dL (32.0-36.0); MONOCYTES % (AUTO) 8.8 %; NEUTROPHILS % (AUTO) 7.5 %; RED BLOOD COUNT 2.88 10^6/uL (4.20-5.40); RED CELL DISTRIBUTION WIDTH 11.9 % (12.0-15.0)
[2020-05-05 05:56] LABS: PLT - PLATELET COUNT 17 10^3/uL (130-450); WHITE BLOOD COUNT 1.5 x10^3/uL (4.8-10.8)
[2020-05-05 05:57] LABS: ABNORMAL LYMPHS % (MANUAL) 0 %; BAND NEUTROPHILS % (MANUAL) 0 %
[2020-05-05 06:01] LABS: CALCIUM 8.5 mg/dL (8.5-10.3); CREATININE 0.4 mg/dL (0.4-1.0); MAGNESIUM 1.7 mg/dL (1.7-2.8); PHOSPHORUS 3.3 mg/dL (2.5-4.6)
[2020-05-05 06:31] LABS: DIFFERENTIAL COMMENT MANUAL DIFFERENTIAL; LYMPHOCYTES # (MANUAL) 1.2 10^3/uL (1.5-3.5); LYMPHOCYTES % (MANUAL) 81 %; MONOCYTES # (MANUAL) 0.1 10^3/uL (0.0-1.0); PLATELET ESTIMATE, MANUAL DECREASED (<130,000) (NORMAL); RBC MORPHOLOGY (MULTIPLE) 1+ HYPOCHROMASIA (NORMAL)
[2020-05-05] MEDS ORDERED: POTASSIUM CHLORIDE 20 MEQ TABLET PO ONE (07:48)
[2020-05-05] MEDS: MORPHINE ER 15 MG TABLET PO SCH ×2 (08:58→21:05)
[2020-05-05] MEDS: methIMAzole 5 MG TABLET PO SCH (08:58)
[2020-05-05] MEDS: FILGRASTIM-SNDZ 300 MCG/0.5 ML SYRINGE SUBQ SCH (10:11)
[2020-05-05] MEDS: ONDANSETRON 4 MG/2 ML VIAL IVP PRN (14:50)
[2020-05-06] MEDS: SODIUM CHLORIDE FLUSH 0.9% 10 ML SYRINGE IVP SCH ×3 (03:41→17:50)
[2020-05-06] MEDS: CEFEPIME 2 GM in SODIUM CHLORIDE 0.9% MINIBAG 100 ML IV SCH ×2 (06:03→14:01)
[2020-05-06] MEDS: SODIUM CHLORIDE FLUSH 0.9% 10 ML SYRINGE IVP PRN ×5 (06:03→16:52)
[2020-05-06 06:22] LABS: EOSINOPHILS % (AUTO) 1.7 %; LYMPHOCYTES % (AUTO) 63.4 %; MEAN CORPUSCULAR HEMOGLOBIN 26.7 pg (27.0-31.0); MEAN CORPUSCULAR HGB CONC 32.1 g/dL (32.0-36.0); MEAN CORPUSCULAR VOLUME 83.3 fL (81.0-99.0); MONOCYTES % (AUTO) 12.6 %; NEUTROPHILS % (AUTO) 21.2 %; RED BLOOD COUNT 2.58 10^6/uL (4.20-5.40)
[2020-05-06 06:26] LABS: HGB - HEMOGLOBIN 6.9 g/dL (12.0-16.0); PLT - PLATELET COUNT 17 10^3/uL (130-450); WHITE BLOOD COUNT 1.8 x10^3/uL (4.8-10.8)
[2020-05-06 06:27] LABS: ABNORMAL LYMPHS % (MANUAL) 0 %; BAND NEUTROPHILS % (MANUAL) 0 %
[2020-05-06 06:30] LABS: CALCIUM 8.6 mg/dL (8.5-10.3); CREATININE 0.4 mg/dL (0.4-1.0); MAGNESIUM 1.7 mg/dL (1.7-2.8); PHOSPHORUS 3.4 mg/dL (2.5-4.6)
[2020-05-06 06:50] LABS: LYMPHOCYTES # (MANUAL) 1.3 10^3/uL (1.5-3.5); LYMPHOCYTES % (MANUAL) 71 %; MONOCYTES # (MANUAL) 0.2 10^3/uL (0.0-1.0)
[2020-05-06 06:51] LABS: DIFFERENTIAL COMMENT MANUAL DIFFERENTIAL; PLATELET ESTIMATE, MANUAL DECREASED (<130,000) (NORMAL)
[2020-05-06] MEDS: methIMAzole 5 MG TABLET PO SCH (09:25)
[2020-05-06] MEDS: FILGRASTIM-SNDZ 300 MCG/0.5 ML SYRINGE SUBQ SCH (09:25)
[2020-05-06] MEDS: MORPHINE ER 15 MG TABLET PO SCH (09:25)
[2020-05-06] MEDS: ONDANSETRON 4 MG/2 ML VIAL IVP PRN (11:25)
--- NOTE | 2020-05-06 13:30 | PROVIDER PROGRESS NOTE ---
Assessment/Plan - Problem List (1) Neutropenic fever Assessment/Plan: 05/05,Patient had no fever for nearly 24 hours. WBC is increased to 1.5 after continue filgrastim. continue Cefepim, continue vital monitor, continue neutropenic isolation and precaution. 05/04 Patient still has low degree 37.9 fever on yesterday afternoon. Temperature is improved and trend down. Blood culture is negative for bactere jesús. Patient has no obvious infection resource. 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 continue lab monitor. closely monitor if bleeding, pt has 17 Platelets. continue filgrastim for i ncrease of WBC. This is likely secondary to the chemotherapy. Patient hemoglobin is 7.6, stable. patient's platelets is 17 after transfusion 1 units of platelets.We will continue closely monitor patient, precaution and closely monitor patient bleeding (3) Neuroendocrine carcinoma metastatic to multiple sites Conclusion/Plan: She unfortunately has metastatic neuroendocrine cancer of unknown primary. She is [facility] here at [place] [facility] [place] oncology and is on chemotherapy: etoposide, carboplatin, atezolizumab. She is now admitted with neutropenic fev er. We will hold chemotherapy now, advise pt continue closely follow-up her oncologist. (4) Hyperthyroidism Conclusion/Plan: stable. Continue home methimazole. - Current Meds Current Meds: Current Medications Generic Name Dose Route Start Last Admin Trade Name Freq PRN Reason Stop Dose Admin Acetaminophen 650 mg 05/03/20 01:23 05/05/20 08:58 Tylenol PO 650 mg Q4HR PRN Administration Pain 1 to 4 Filgrastim 300 mcg 05/03/20 10:00 05/06/20 09:25 Zarxio SUBQ 300 mcg DAILY MITESH Administration Heparin Sodium (Beef Lung) 30 - 50 unit 05/03/20 04:57 05/06/20 08:48 IVP 50 unit PRN PRN Administration Port Protocol (<24 hours) Cefepime HCl 2 gm/ Sodium 100 mls @ 200 mls/hr 05/05/20 14:00 05/06/20 06:35 Chloride IV Infused TID MITESH Infusion Methimazole 5 mg 05/03/20 09:00 05/06/20 09:25 Tapazole PO 5 mg DAILY MITESH Administration Morphine Sulfate 15 mg 05/04/20 21:00 05/06/20 09:25 PO 15 mg BID MITESH Administration Ondansetron HCl 4 mg 05/03/20 01:23 05/06/20 11:25 Zofran Inj IVP 4 mg Q6HR PRN Administration Nausea / Vomiting Oxycodone HCl 5 mg 05/03/20 01:23 05/05/20 00:06 Roxicodone PO 5 mg Q4HR PRN Administration Pain 5 to 7 Sodium Chloride 10 ml 05/03/20 01:23 05/06/20 11:26 Normal Saline Flush 0.9% IVP 10 ml PRN PRN Administration NEEDED PER PROVIDER ORDERS Sodium Chloride 10 ml 05/03/20 09:00 05/06/20 08:47 Normal Saline Flush 0.9% IVP 10 ml 0100,0900,1700 MITESH Administration Sodium Chloride 20 ml 05/03/20 04:57 05/06/20 06:03 Normal Saline Flush 0.9% IVP 20 ml PRN PRN Administration After Blood Draw - Lab Result Fish Bone Diagrams: 05/06/20 05:55 05/06/20 05:55 - Additional Planning My Orders: My Active Orders 05/06/20 16:00 CBC - COMP BLD CT W/AUTO DIFF [HEME] Timed Subjective - Subjective Patient Reports: Feeling Better Objective Vital Signs: Vital Signs - 24 hr 05/05/20 05/05/20 05/05/20 16:19 16:36 21:00 Temperature 37.0 C 37.5 C Heart Rate Heart Rate [ 93 89 94 Brachial] Respiratory 18 18 Rate Blood Pressure Blood Pressure 104/51 L [Left Brachial artery] Blood Pressure 96/71 119/62 [Right Brachial artery] O2 Saturation 100 100 05/06/20 05/06/20 05/06/20 01:00 08:01 08:44 Temperature 37.0 C 36.7 C 36.8 C Heart Rate 93 Heart Rate [ 88 91 Brachial] Respiratory 17 20 16 Rate Blood Pressure 122/59 L Blood Pressure [Left Brachial artery] Blood Pressure 100/61 110/55 L [Right Brachial artery] O2 Saturation 98 97 05/06/20 05/06/20 05/06/20 08:54 09:09 11:05 Temperature 36.9 C 36.8 C 37.1 C Heart Rate 81 84 Heart Rate [ 87 Brachial] Respiratory 16 16 18 Rate Blood Pressure 98/56 L 99/54 L Blood Pressure [Left Brachial artery] Blood Pressure 100/55 L [Right Brachial artery] O2 Saturation 98 05/06/20 05/06/20 05/06/20 11:13 11:30 11:33 Temperature 36.9 C 36.7 C 36.8 C Heart Rate 78 73 Heart Rate [ 82 Brachial] Respiratory 18 16 18 Rate Blood Pressure 99/56 L 96/55 L Blood Pressure [Left Brachial artery] Blood Pressure 96/53 L [Right Brachial artery] O2 Saturation 99 05/06/20 11:44 Temperature 36.7 C Heart Rate 77 Heart Rate [ Brachial] Respiratory 16 Rate Blood Pressure 98/52 L Blood Pressure [Left Brachial artery] Blood Pressure [Right Brachial artery] O2 Saturation Oxygen O2 Source Room air I&O (Last 24 Hrs): Intake and Output Totals x24h 05/04/20 05/05/20 05/06/20 23:59 23:59 23:59 Intake Total 1737 660 915 Balance 1737 660 915 General: Alert, Oriented x3, No acute distress HEENT: Atraumatic Neck: Supple Lymphatic: no adenopathy Neuro: Oriented Times 3 Cardiovascular: Regular rate, Normal S1, Normal S2 Respiratory: Chest non-tender, No respiratory distress Abdomen: Normal bowel sounds, Soft, No tenderness Extremities: Normal pulses Skin: No rashes - Results Results: Laboratory Results WBC 1.8 x10^3/uL (4.8-10.8) L* 05/06/20 05:55 RBC 2.58 10^6/uL (4.20-5.40) L 05/06/20 05:55 Hgb 6.9 g/dL (12.0-16.0) L* 05/06/20 05:55 Hct 21.5 % (37.0-47.0) L 05/06/20 05:55 MCV 83.3 fL (81.0-99.0) 05/06/20 05:55 MCH 26.7 pg (27.0-31.0) L 05/06/20 05:55 MCHC 32.1 g/dL (32.0-36.0) 05/06/20 05:55 RDW 12.0 % (12.0-15.0) 05/06/20 05:55 Plt Count 17 10^3/uL (130-450) L* 05/06/20 05:55 Neut # (Auto) Not Reportable 05/06/20 05:55 Lymph # (Auto) Not Reportable 05/06/20 05:55 [place] # (Auto) Not Reportable 05/06/20 05:55 Eos # (Auto) Not Reportable 05/06/20 05:55 Baso # (Auto) Not Reportable 05/06/20 05:55 Absolute Nucleated RBC Not Reportable 05/06/20 05:55 Total Counted 100 05/06/20 05:55 Band Neuts % (Manual) 0 % (0-10) 05/06/20 05:55 Abnorm Lymph % (Manual) 0 % 05/06/20 05:55 Nucleated RBC % Not Reportable 05/06/20 05:55 Neutrophils # (Manual) 0.4 10^3/uL (1.5-6.6) L* 05/06/20 05:55 Lymphocytes # (Manual) 1.3 10^3/uL (1.5-3.5) L 05/06/20 05:55 Monocytes # (Manual) 0.2 10^3/uL (0.0-1.0) 05/06/20 05:55 Eosinophils # (Manual) 0.0 10^3/uL (0-0.7) 05/06/20 05:55 Basophils # (Manual) 0.0 10^3/uL (0-0.1) 05/06/20 05:55 Differential Comment MANUAL DIFFERENTIAL 05/06/20 05:55 WBC Morphology NORMAL APPEARANCE (NORMAL) 05/04/20 05:10 Platelet Estimate DECREASED (<130,000) (NORMAL) 05/06/20 05:55 Platelet Morphology NORMAL APPEARANCE (NORMAL) 05/04/20 05:10 RBC Morph Micro Appear 1+ HYPOCHROMASIA (NORMAL) 05/05/20 05:08 Sodium 139 mmol/L (135-145) 05/06/20 05:55 Potassium 3.6 mmol/L (3.5-5.0) 05/06/20 05:55 Chloride 104 mmol/L (101-111) 05/06/20 05:55 Carbon Dioxide 29 mmol/L (21-32) 05/06/20 05:55 Anion Gap 6.0 (6-13) 05/06/20 05:55 BUN 8 mg/dL (6-20) 05/06/20 05:55 Creatinine 0.4 mg/dL (0.4-1.0) 05/06/20 05:55 Estimated GFR (MDRD) 170 (>89) 05/06/20 05:55 Glucose 86 mg/dL (70-100) 05/06/20 05:55 Lactic Acid 1.0 mmol/L (0.5-2.2) 05/02/20 23:20 Calcium 8.6 mg/dL (8.5-10.3) 05/06/20 05:55 Phosphorus 3.4 mg/dL (2.5-4.6) 05/06/20 05:55 Magnesium 1.7 mg/dL (1.7-2.8) 05/06/20 05:55 Total Bilirubin 1.3 mg/dL (0.2-1.0) H 05/02/20 23:20 AST 35 IU/L (10-42) 05/02/20 23:20 ALT 43 IU/L (10-60) 05/02/20 23:20 Alkaline Phosphatase 55 IU/L (42-121) 05/02/20 23:20 Total Protein 6.8 g/dL (6.7-8.2) 05/02/20 23:20 Albumin 3.2 g/dL (3.2-5.5) 05/02/20 23:20 Globulin 3.6 g/dL (2.1-4.2) 05/02/20 23:20 Albumin/Globulin Ratio 0.9 (1.0-2.2) L 05/02/20 23:20 Urine Color YELLOW 05/03/20 21:50 Urine Clarity CLEAR (CLEAR) 05/03/20 21:50 Urine pH 6.0 PH (5.0-7.5) 05/03/20 21:50 Ur Specific [place]gan 1.015 (1.002-1.030) 05/03/20 21:50 Urine Protein NEGATIVE mg/dL (NEGATIVE) 05/03/20 21:50 Urine Glucose (UA) NEGATIVE mg/dL (NEGATIVE) 05/03/20 21:50 Urine Ketones NEGATIVE mg/dL (NEGATIVE) 05/03/20 21:50 Urine Occult Blood TRACE-LYSE (NEGATIVE) 05/03/20 21:50 Urine Nitrite NEGATIVE (NEGATIVE) 05/03/20 21:50 Urine Bilirubin NEGATIVE (NEGATIVE) 05/03/20 21:50 Urine Urobilinogen 0.2 (NORMAL) E.U./dL (NORMAL) 05/03/20 21:50 Ur Leukocyte Esterase NEGATIVE (NEGATIVE) 05/03/20 21:50 Urine RBC 6-10 /HPF (0-5) H 05/03/20 00:14 Urine WBC 0-3 /HPF (0-5) 05/03/20 00:14 Ur Squamous Epith Cells MOD Squamous (<= Few) H 05/03/20 00:14 Urine Bacteria Few /HPF (None Seen) 05/03/20 00:14 Urine Mucus Marked Strands 05/03/20 00:14 Ur Microscopic Review NOT INDICATED 05/03/20 21:50 Urine Culture Comments NOT INDICATED 05/03/20 21:50 Urine HCG, Qual NEGATIVE 05/03/20 00:14 Nasal Adenovirus (PCR) NOT DETECTED 05/02/20 23:20 Nasal B. parapertussis DNA (PCR) NOT DETECTED 05/02/20 23:20 Nasal Coronavir 229E PCR NOT DETECTED 05/02/20 23:20 Nasal Coronavir HKU1 PCR NOT DETECTED 05/02/20 23:20 Nasal Coronavir NL63 PCR NOT DETECTED 05/02/20 23:20 Nasal Coronavir OC43 PCR NOT DETECTED 05/02/20 23:20 Nasal Enterovir/Rhinovir PCR NOT DETECTED 05/02/20 23:20 Nasal Influenza B PCR NOT DETECTED 05/02/20 23:20 Nasal Parainfluen 1 PCR NOT DETECTED 05/02/20 23:20 Nasal Parainfluen 2 PCR NOT DETECTED 05/02/20 23:20 Nasal Parainfluen 3 PCR NOT DETECTED 05/02/20 23:20 Nasal Parainfluen 4 PCR NOT DETECTED 05/02/20 23:20 Nasal RSV (PCR) NOT DETECTED 05/02/20 23:20 Nasal Screen MRSA (PCR) NEGATIVE (NEGATIVE) 05/03/20 02:50 Nasal B.pertussis DNA PCR NOT DETECTED 05/02/20 23:20 Nasal C.pneumoniae (PCR) NOT DETECTED 05/02/20 23:20 Nik Human Metapneumo PCR NOT DETECTED 05/02/20 23:20 Nasal M.pneumoniae (PCR) NOT DETECTED 05/02/20 23:20 Nasal SARS-CoV-2 (PCR) NOT DETECTED 05/02/20 23:20 Blood Type O POSITIVE 05/06/20 07:03 Blood Type Recheck O POSITIVE 05/02/20 23:20 Antibody Screen NEGATIVE 05/06/20 07:03 Crossmatch IS Only See Detail 05/06/20 07:03 - Procedures Procedures: Procedures EXCISION OF POST NECK SUBCU/FASCIA, OPEN APPROACH, DIAGN (03/25/20) ABX Reporting Has patient been on IV antibiotics over the past 48 hours?: Yes Current Medications - Current Medications Current Medications: Active Medications Acetaminophen (Tylenol) 650 mg PO Q4HR PRN PRN Reason: Pain 1 to 4 Last Admin: 05/05/20 08:58 Dose: 650 mg Documented by: Filgrastim (Zarxio) 300 mcg SUBQ DAILY [facility] Last Admin: 05/06/20 09:25 Dose: 300 mcg Documented by: Heparin Sodium (Beef Lung) () 30 - 50 unit IVP PRN PRN PRN Reason: Port Protocol (<24 hours) Last Admin: 05/06/20 08:48 Dose: 50 unit Documented by: Cefepime HCl 2 gm/ Sodium (Chloride) 100 mls @ 200 mls/hr IV TID [facility] Last Infusion: 05/06/20 14:33 Dose: Infused Documented by: Methimazole (Tapazole) 5 mg PO DAILY [facility] Last Admin: 05/06/20 09:25 Dose: 5 mg Documented by: Morphine Sulfate () 15 mg PO BID [facility] Last Admin: 05/06/20 09:25 Dose: 15 mg Documented by: Ondansetron HCl (Zofran Odt) 4 mg TL Q6HR PRN PRN Reason: Nausea / Vomiting Ondansetron HCl (Zofran Inj) 4 mg IVP Q6HR PRN PRN Reason: Nausea / Vomiting Last Admin: 05/06/20 11:25 Dose: 4 mg Documented by: Oxycodone HCl (Roxicodone) 5 mg PO Q4HR PRN PRN Reason: Pain 5 to 7 Last Admin: 05/05/20 00:06 Dose: 5 mg Documented by: Sodium Chloride (Normal Saline Flush 0.9%) 10 ml IVP PRN PRN PRN Reason: NEEDED PER PROVIDER ORDERS Last Admin: 05/06/20 14:01 Dose: 10 ml Documented by: Sodium Chloride (Normal Saline Flush 0.9%) 10 ml IVP 0100,0900,1700 MITESH Last Admin: 05/06/20 08:47 Dose: 10 ml Documented by: Sodium Chloride (Normal Saline Flush 0.9%) 20 ml IVP PRN PRN PRN Reason: After Blood Draw Last Admin: 05/06/20 06:03 Dose: 20 ml Documented by: methIMAzole [Methimazole] 5 mg PO DAILY 03/22/20 oxyCODONE [Roxicodone] 5 mg PO Q4-6H 04/09/20
[2020-05-06 16:22] LABS: BASOPHILS % (AUTO) 0.7 %; LYMPHOCYTES % (AUTO) 37.7 %; MEAN CORPUSCULAR HEMOGLOBIN 28.3 pg (27.0-31.0); MEAN CORPUSCULAR HGB CONC 33.3 g/dL (32.0-36.0); NEUTROPHILS % (AUTO) 44.3 %; RED BLOOD COUNT 3.53 10^6/uL (4.20-5.40); RED CELL DISTRIBUTION WIDTH 12.8 % (12.0-15.0)
[2020-05-06 16:30] LABS: PLT - PLATELET COUNT 22 10^3/uL (130-450)
[2020-05-06 16:31] LABS: ABNORMAL LYMPHS % (MANUAL) 0 %
[2020-05-06 17:16] LABS: BAND NEUTROPHILS % (MANUAL) 6 %; EOSINOPHILS # (MANUAL) 0.1 10^3/uL (0-0.7); LYMPHOCYTES # (MANUAL) 1.4 10^3/uL (1.5-3.5); LYMPHOCYTES % (MANUAL) 48 %; METAMYELOCYTES % (MANUAL) 1 %; MONOCYTES # (MANUAL) 0.3 10^3/uL (0.0-1.0)
[2020-05-06 17:18] LABS: PLATELET ESTIMATE, MANUAL DECREASED (<130,000) (NORMAL)
[2020-05-06 17:19] LABS: PLATELET MORPHOLOGY NORMAL APP (NORMAL); RBC MORPHOLOGY (MULTIPLE) 2+ OVALOCYTES (NORMAL)
[2020-05-06 17:21] LABS: DIFFERENTIAL COMMENT MANUAL DIFFERENTIAL
--- NOTE | 2020-05-06 17:52 | Discharge Plan ---
Discharge Plan Problem Reviewed?: Yes Disposition: Home, Self Care Condition: Stable Prescriptions: cefUROXime axetiL [Ceftin] 500 mg PO Q12H 5 Days #10 tablet Diet: Regular Activity Restrictions: Activity as Tolerated Shower Restrictions: No (fall precaution) Instruction Topics: Neutropenia, Cefuroxime tablets Health Concerns: neutropenic fever Plan of Treatment: After you are treated in hospital, you have no more fever, and your WBC is increasing significantly. you are prescribed antibiotics to finish the treatment course. You may followup with your oncologist on tomorrow, and have blood work and vital sign monitor again. Care Goals: stabilization and improvement of your medical conditions Assessment: discussed the care plan with you, you understood and agreed. Additional Instructions or Follow Up instructions: You may followup with your PCP in one week, followup with your oncologist on tomorrow, have another blood work on tomorrow as well. Should your symptoms return or worsen, you may present ER or call 911 for help. No Smoking: If you smoke, Please STOP! Call for help. Follow-up with: Eris Hogan DO [Primary Care Provider] -
--- NOTE | 2020-05-06 18:04 | DISCHARGE SUMMARY ---
Discharge Summary Admit Date: 05/03/20 Discharge Date: 05/06/20 Discharging Provider: Tiago Koch Primary Care Provider: Dr. Sudha Hogan Condition at Discharge: Stable Discharge Disposition: 01 Home, Self Care Discharge Facility Name: home - DIAGNOSES Discharge Diagnoses with Status of Each Condition: (1) Neutropenic fever resolved. pt has no fever close for two day, Patient's WBC rise to 3.0. Blood culture is negative for bacteremia. Patient is prescribed antibiotics for a few days (2) Pancytopenia improved. Patient had 2 units of blood transfusion and 1 unit platelets. (3) Neuroendocrine carcinoma metastatic to multiple sites Patient will see her oncologist on tomorrow. (4) Hyperthyroidism stable. Continue home methimazole. - HPI History of Present Illness: refer from Dr. De La Garza's HPI on 05/03/2020 This is a very pleasant 49-year-old female with a past medical history significant for hyperthyroidism, history of colon cancer, and a recent diagnosis of neuroendocrine tumor of unknown primary. She presents today after she took her temperature at home and found it was elevated at 101.4 C. She called her primary care provider who asked her to go to the emergency department for evaluation. She has just been diagnosed with neuroendocrine tumor and is followed by oncology here at the [facility]. She was started on a Etoposide, carboplatin, atezolizumab and received 3 days of treatment on April, , . She states she has been feeling a little fatigued the past few days and weaker overall. She took her temperature today because she felt a little warm and she was told during her chemotherapy classes to check her temperature periodically. She reports occasional chills but no rigors. She denies any chest pain, dyspnea. Reports no cough. She does have abdominal pain which is chronic for her. She reports no diarrhea but does endorse constipation which she attributes to the morphine that she takes. She denies any dysuria, urgency, frequency, hematuria. She does report vaginal discharge of a clear fluid that is occasionally yellow. She states that she changes her pad 4 times a day. She was seen by Dr. Morrison on an outpatient basis and was told this was due to necrotic tissue from the cancer. She reports no erythema or any redness of her skin. She did notice she had a small nosebleed yesterday evening. She also has a small bruise over her left hand. She is also noticed that over the past week or so she has had some redness and red/purple dots over her bilateral cheeks. She does report feeling a little dizzy and lightheaded. In the emergency department, she was found to be febrile temperature of 39.4 C. Her heart rate was 115. Her blood pressure is 119/70. She was not tachypneic and saturating well on room air. Labs were significant for a white count of 0.9 with a neutrophil count of 0.0. Her hemoglobin was decreased at 9.2. Her p latelet count was 3. Sodium was 132. Lactic acid was normal at 1.0. Respiratory PCR panel was negative. She was given vancomycin, cefepime, Flagyl IV in the emergency department. The emergency department provider spoke with the oncologist on-call for the [facility] and they agreed with admission. They recommended treating with cefepime IV and giving the patient a transfusion of platelets. They also recommended starting Neupogen. Given the above findings, medicine was consulted for admission. I did discuss goals of care with the patient and she would like to be a full code. - HOSPITAL COURSE Hospital Course: Patient was admitted for neutropenic fever, patient was just finished first cycle of chemo for Her metastatic NeuroEndocrine carcinoma. Patient was treated with intravenous antibiotics. Patient had negative blood culture. After treated, patient had no fever close to two days. Patient's WBC rise 3.0. Patient was given Neupogen in the hospital. Patient had 2 unit blood transfusion and 1 unit of platelets for patient pancytopenia. Patient will see her oncologist on tomorrow. Patient was discharged in hemodynamic status. - ALLERGIES Allergies/Adverse Reactions: Allergies Allergy/AdvReac Type Severity Reaction Status Date / Time No Known Drug Allergies Allergy Verified 05/02/20 22:36 - MEDICATIONS Home Medications: Ambulatory Orders Medication Instructions Recorded Confirmed methIMAzole [Methimazole] 5 mg PO DAILY 03/22/20 05/02/20 oxyCODONE [Roxicodone] 5 mg PO Q4-6H 04/09/20 05/02/20 Lidocaine/Prilocain 2.5% Cream 5 applic TOP UD #1 tube 04/12/20 05/02/20 [Emla 2.5% Cream] OLANZapine [Olanzapine] 5 mg PO UD #24 tablet 04/12/20 05/02/20 Ondansetron [Ondansetron Odt] 8 mg PO BID #30 tab.rapdis 04/12/20 05/02/20 Prochlorperazine Maleate 10 mg PO Q6HR PRN #30 tab 04/12/20 05/02/20 [Compazine] Morphine Sulfate [Morphine Sulfate 15 mg PO Q12H #60 tablet.er 04/14/20 05/02/20 ER] cefUROXime axetiL [Ceftin] 500 mg PO Q12H 5 Days #10 tablet 05/06/20 - PHYSICAL EXAM AT DISCHARGE General Appearance: positive: No acute distress, Alert. negative: Lethargic Eyes Bilateral: positive: Normal inspection, PERRL, No lid inflammation ENT: positive: ENT inspection nml, No signs of dehydration. negative: Purulent nasal drainage Neck: positive: Nml inspection, Thyroid nml, Trachea midline. negative: Thyromegaly, Tracheal deviation Respiratory: positive: Chest non-tender, No respiratory distress, Breath sounds nml. negative: Wheezes, Rales, Rhonchi Cardiovascular: positive: Regular rate & rhythm, No murmur. negative: Tachyc ardia, Bradycardia, Systolic murmur, Diastolic murmur Peripheral Pulses: positive: 2+ Abdomen: positive: Non-tender, Nml bowel sounds, No distention. negative: Tenderness, Guarding, Rebound Back: positive: Nml inspection Skin: positive: Color nml, No rash, Warm, Dry. negative: Cyanosis, Diaphoresis, Pallor Extremities: positive: Non-tender, Full ROM, Nml appearance. negative: Calf tenderness Neurologic/Psychiatric: positive: Oriented x3, Motor nml, Sensation nml, Mood/affect nml. negative: Weakness, Sensory loss, Facial droop, Slurred/abnml speech, Depressed mood/affect - LABS Result Diagrams: 05/06/20 16:10 05/06/20 05:55 - FOLLOW UP Follow Up: After you are treated in hospital, you have no more fever, and your WBC is increasing significantly. you are prescribed antibiotics to finish the treatment course. You may followup with your oncologist on tomorrow, and have blood work and vital sign monitor again. You may followup with your PCP in one week, followup with your oncologist on tomorrow, have another blood work on tomorrow as well. Should your symptoms return or worsen, you may present ER or call 911 for help. - TIME SPENT Time Spent in Discharge (Minutes): 30
[2020-05-06 18:48] VITALS: BP 121/60
== END 2020-05-06 19:00 | disposition home or self-care (01) | DRG 809 ==
LOC: ED 22:33 → MS2 05-03 01:23
PROVIDERS: ADMIT Internal Medicine; ATTEND Nurse Practitioner Gerontology
PROC: 30243R1 Transfusion of Nonautologous Platelets into Central Vein, Percutaneous Approach (ICD-10-PCS; principal; 2020-05-03)
PROC: 30243N1 Transfusion of Nonautologous Red Blood Cells into Central Vein, Percutaneous Approach (ICD-10-PCS; 2020-05-06)
DX: D61.810 Antineoplastic chemotherapy induced pancytopenia (principal); C7B.8 Other secondary neuroendocrine tumors; R50.81 Fever presenting with conditions classified elsewhere; T45.1X5A Adverse effect of antineoplastic and immunosuppressive drugs, initial encounter; Y92.531 Health care provider office as the place of occurrence of the external cause; C80.1 Malignant (primary) neoplasm, unspecified; I10 Essential (primary) hypertension; E05.90 Thyrotoxicosis, unspecified without thyrotoxic crisis or storm; K59.03 Drug induced constipation; T40.2X5A Adverse effect of other opioids, initial encounter; N89.3 Dysplasia of vagina, unspecified; H54.7 Unspecified visual loss; Z79.891 Long term (current) use of opiate analgesic; Z79.899 Other long term (current) drug therapy; Z85.038 Personal history of other malignant neoplasm of large intestine
CPT/HCPCS: 0202U; 36415; 71045; 80048; 80053; 81001; 81003; 81025; 83605; 83735; 84100; 85025; 86850; 86900; 86901; 86920; 87040; 87640; 96365; 96366; 96368; 96375; 99284; 99285; A9270; J3370; J7040; J7120; P9016; P9035; Q5101; 87086

== ENCOUNTER 2020-06-25 15:35 | Observation (INO) | payer OTHER ==
[2020-06-25] MEDS ORDERED: SODIUM CHLORIDE 0.9% 1,000 ML IV STA ×2 (16:20)
--- NOTE | 2020-06-25 16:23 | ED Physician Documentation ---
History of Present Illness - Stated complaint Stated Complaint: HIGH BS - Chief complaint Chief Complaint: General - History obtained from History obtained from: Patient - History of Present Illness Timing: Today Pain level max: 0 Pain level now: 0 - Additonal information Additional information: Patient is a 49-year-old female who presents to the emergency department after being found to have hyperglycemia on routine outpatient lab draw today. 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 Is currently undergoing chemotherapy. She states she has been urinating more frequently and had blurred vision over the past few weeks. No history of diabetes. No vomiting. No abdominal pain. No fever. Nothing makes it better or worse Review of Systems Constitutional: denies: Fever, Chills Ears: denies: Ear pain Nose: denies: Rhinorrhea / runny nose Cardiac: denies: Chest pain / pressure, Palpitations Respiratory: denies: Cough GI: denies: Abdominal Pain, Nausea, Vomiting, Diarrhea Skin: denies: Rash Musculoskeletal: denies: Neck pain, Back pain Neurologic: denies: Headache PD PAST MEDICAL HISTORY - Past Medical History Cardiovascular: Hypertension Respiratory: None Neuro: None Endocrine/Autoimmune: HyPERthyroidism (treated with methimazole) GI: Other : None HEENT: Chronic vision loss, Other Psych: None Musculoskeletal: None Derm: None - Past Surgical History Past Surgical History: No General: Colonoscopy, Other (lymph node biopsy) - Present Medications Home Medications: Ambulatory Orders Medication Instructions Recorded Confirmed methIMAzole [Methimazole] 5 mg PO DAILY 03/22/20 06/25/20 Ondansetron [Ondansetron Odt] 8 mg PO BID #30 tab.rapdis 04/12/20 06/25/20 Nystatin [Mycostatin] 5 ml PO QID 06/09/20 06/25/20 - Allergies Allergies/Adverse Reactions: Allergies Allergy/AdvReac Type Severity Reaction Status Date / Time No Known Drug Allergies Allergy Verified 06/25/20 08:52 - Social History Does the pt smoke?: No Smoking Status: Never smoker Does the pt drink ETOH?: Yes Does the pt have substance abuse?: No - POLST Patient has POLST: No PD ED PE NORMAL - Vitals Vital signs reviewed: Yes - General General: Alert and oriented X 3, No acute distress, Well developed/nourished - HEENT HEENT: PERRL, Moist mucous membranes - Neck Neck: Supple, no meningeal sign - Cardiac Cardiac: RRR, Strong equal pulses - Respiratory Respiratory: No respiratory distress, Clear bilaterally - Abdomen Abdomen: Soft, Non tender, Non distended - Derm Derm: Warm and dry, No rash - Extremities Extremities: No edema, No calf tenderness / cord - Neuro Neuro: Alert and oriented X 3 - Psych Psych: Normal mood, Normal affect Results - Vitals Vitals: Vital Signs - 24 hr 06/25/20 15:45 Temperature 37.0 C Heart Rate 79 Respiratory 16 Rate Blood Pressure 155/80 H O2 Saturation 98 Oxygen O2 Source Room air - Labs Labs: Laboratory Tests 06/25/20 06/25/20 06/25/20 16:27 16:27 16:27 WBC 5.3 RBC 3.53 L Hgb 10.6 L Hct 31.4 L MCV 89.0 MCH 30.0 MCHC 33.8 RDW 20.1 H Plt Count 94 L MPV 11.3 H Neut # (Auto) 2.7 Lymph # (Auto) 2.1 Amite # (Auto) 0.3 Eos # (Auto) 0.2 Baso # (Auto) 0.0 Absolute Nucleated RBC 0.00 Nucleated RBC % 0.0 Platelet Estimate DECREASED (<130,000) Platelet Morphology NORMAL APPEARANCE RBC Morph Micro Appear 1+ HYPOCHROMASIA VBG pH VBG pCO2 VBG pO2 VBG HCO3 VBG Total CO2 VBG O2 Saturation VBG Base Excess Sodium 130 L Potassium 3.8 Chloride 92 L Carbon Dioxide 21 Anion Gap 17.0 H BUN 18 Creatinine 0.8 Estimated GFR (MDRD) 76 L Glucose 523 H* Estimat Average Glucose TNP Hemoglobin A1c % TNP Calcium 9.4 Magnesium 1.7 Total Bilirubin 1.2 H AST 17 ALT 22 Alkaline Phosphatase 156 H Total Protein 7.5 Albumin 4.3 Globulin 3.2 Albumin/Globulin Ratio 1.3 Lipase 20 L Serum Ketones SMALL H 06/25/20 16:27 WBC RBC Hgb Hct MCV MCH MCHC RDW Plt Count MPV Neut # (Auto) Lymph # (Auto) Amite # (Auto) Eos # (Auto) Baso # (Auto) Absolute Nucleated RBC Nucleated RBC % Platelet Estimate Platelet Morphology RBC Morph Micro Appear VBG pH 7.363 VBG pCO2 37.4 L VBG pO2 66.6 H VBG HCO3 20.8 L VBG Total CO2 21.9 L VBG O2 Saturation 92.4 H VBG Base Excess -4.1 L Sodium Potassium Chloride Carbon Dioxide Anion Gap BUN Creatinine Estimated GFR (MDRD) Glucose Estimat Average Glucose Hemoglobin A1c % Calcium Magnesium Total Bilirubin AST ALT Alkaline Phosphatase Total Protein Albumin Globulin Albumin/Globulin Ratio Lipase Serum Ketones PD MEDICAL DECISION MAKING - ED course Complexity details: reviewed old records, reviewed results, re-evaluated patient , considered differential, d/w patient, d/w financial sales consultant ED course: 49-year-old female with acute hyperglycemia. Blood sugar decreased to the 500s on insulin drip. Does have ketones. Likely a consequence of her neuroendocrine tumor. We will admit her for further care. Discussed with Dr. Ascencio, hospitalist who accepts. Patient will be placed in observation. This document was made in part using voice recognition software. While efforts are made to proofread this document, sound alike and grammatical errors may occur. Departure - Departure Disposition: ED Place in Observation Clinical Impression: Neuroendocrine carcinoma metastatic to multiple sites, Hyperglycemia Condition: Stable Discharge Date/Time: 06/25/20 18:25
[2020-06-25] MEDS ORDERED: SODIUM CHLORIDE FLUSH 0.9% 10 ML SYRINGE IVP PRN (16:28)
[2020-06-25] MEDS ORDERED: oxyCODONE 5 MG TABLET PO PRN (16:28)
[2020-06-25] MEDS ORDERED: ACETAMINOPHEN 325 MG TABLET PO PRN (16:28)
[2020-06-25] MEDS ORDERED: ONDANSETRON 4 MG/2 ML VIAL IVP PRN (16:28)
[2020-06-25] MEDS ORDERED: ONDANSETRON ODT 4 MG TABLET TL PRN (16:28)
[2020-06-25] MEDS ORDERED: INSULIN REGULAR HUMAN 100 UNIT in SODIUM CHLORIDE 0.9% 100ML 99 ML IV STA (16:28)
[2020-06-25 16:51] LABS: VBG PCO2 37.4 mmHg (41-51); VBG PH 7.363 (7.31-7.41); VBG PO2 66.6 mmHg (25-47)
[2020-06-25 16:53] LABS: VBG BASE EXCESS -4.1 mmol/L (-2 - +2); VBG TOTAL CO2 21.9 mmol/L (24-29)
[2020-06-25 16:55] LABS: KETONES, SERUM (ACETEST) SMALL (NEGATIVE)
[2020-06-25] MEDS ORDERED: INSULIN REGULAR HUMAN 100 UNIT in SODIUM CHLORIDE 0.9% 100ML 99 ML IV SCH (17:00)
[2020-06-25] MEDS ORDERED: DEXTROSE 5%-0.9% NACL 1,000 ML IV SCH (17:00)
[2020-06-25] MEDS ORDERED: SODIUM CHLORIDE 0.9% 1,000 ML IV SCH ×2 (17:00)
[2020-06-25 17:01] LABS: ALBUMIN 4.3 g/dL (3.2-5.5); ALBUMIN/GLOBULIN RATIO 1.3 (1.0-2.2); ALKALINE PHOSPHATASE 156 IU/L (42-121); ALT ALANINE AMINOTRANSFERASE 22 IU/L (10-60); AST ASPARTATE AMINOTRANSFERASE 17 IU/L (10-42); BILIRUBIN,TOTAL 1.2 mg/dL (0.2-1.0); BUN - BLOOD UREA NITROGEN 18 mg/dL (6-20); CALCIUM 9.4 mg/dL (8.5-10.3); CARBON DIOXIDE - CO2 21 mmol/L (21-32); CHLORIDE 92 mmol/L (101-111); CREATININE 0.8 mg/dL (0.4-1.0); LIPASE 20 U/L (22-51); MAGNESIUM 1.7 mg/dL (1.7-2.8); SODIUM 130 mmol/L (135-145); TOTAL PROTEIN 7.5 g/dL (6.7-8.2)
[2020-06-25 17:05] LABS: GLUCOSE 523 mg/dL (70-100)
[2020-06-25 17:17] LABS: BASOPHILS % (AUTO) 0.4 %; EOSINOPHILS # (AUTO) 0.2 10^3/uL (0.0-0.7); HGB - HEMOGLOBIN 10.6 g/dL (12.0-16.0); LYMPHOCYTES # (AUTO) 2.1 10^3/uL (1.5-3.5); LYMPHOCYTES % (AUTO) 40.1 %; MEAN CORPUSCULAR HGB CONC 33.8 g/dL (32.0-36.0); MEAN PLATELET VOLUME 11.3 fL (7.9-10.8); MONOCYTES # (AUTO) 0.3 10^3/uL (0.0-1.0); MONOCYTES % (AUTO) 5.7 %; NEUTROPHILS # (AUTO) 2.7 10^3/uL (1.5-6.6); PLT - PLATELET COUNT 94 10^3/uL (130-450); RED BLOOD COUNT 3.53 10^6/uL (4.20-5.40); RED CELL DISTRIBUTION WIDTH 20.1 % (12.0-15.0); WHITE BLOOD COUNT 5.3 x10^3/uL (4.8-10.8)
--- NOTE | 2020-06-25 17:57 | HISTORY & PHYSICAL EXAMINATION ---
Chief Complaint - Chief Complaint Chief Complaint: new hyperglycemia >850 History of Present Illness - Admitted From Admitted From:: Oncologist office - History Obtained From Records Reviewed: [facility] History obtained from: Patient - History of Present Illness HPI Comment/Other: 49 year old female with history of HTN, hyperthyroidism and neuroendocrine carcinoma of unknown primary source presenting from her oncology follow up visit after routine lab work revealed a blood glucose of 870. She does not have a history of diabetes. Her last cycle of chemo was 3 weeks ago, and she reports at that time she noted yellow discoloration to her tongue. Nursing was concerned for development of thrush and she was started on Nystatin swish and swallow. It has not gotten worse or better. She denies mouth sores. Additionally around this time she noticed she was feeling thirstier and also urinating more frequently, which she attributed to drinking more fluids. Her dog also started "acting weird", frequently running up to her and smelling her breath, then running to her and mother and back to her as if trying to tell her something. She has not noticed any odor to her urine or breath. Her vision has been blurry for about 3 weeks, which she attributed to having dry eyes. She does not have numbness or tingling and has not noticed changes in sensation. summer she presented to the ED for leg swelling with a work up that included a chest CT. The CT revealed chest lymphadenopathy and left side supraclavicular mass. 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 A cervical tumor was found after she noticed foul-smelling heavy discharge that resolved after her 2nd cycle of chemo, but she is again noticing discharge that is "gooey" but not heavy or foul smelling. Her 4th cycle of chemotherapy is scheduled for this coming Sunday. She was sent to the ER once her routine lab work revealed this new hyperglycemia. Of note, she has not required medications for her HTN in a few years but was taking HCTZ and Lisinopril previously. She takes Methimazole for her hyperthyroidism, which was diagnosed around the same time as her cancer. 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 She has another sister who also had colon and uterine cancer. No family history of heart disease or lung disease. Mother with multiple autoimmune diseases, including Lupus and Sjogren's. Living arrangement: At home (lives at home with and mother, who is staying with them) Living Situation: With spouse/s.o. Social History Notes: She lives at home with her , Alfonso. 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 She has never smoked. Denies illicit drug use, including meth/heroin/cocaine, and recreational drug use, including marijuana. She drinks alcohol socially. - Substance History Use: Uses substance without health or social issues: NONE Abuse: Recurrent use of substance despite neg consequences: NONE Dependence: Experiences withdrawal or developed tolerances: NONE - POLST Patient has POLST: No Meds/Allgy - Home Medications Home Medications: Ambulatory Orders Medication Instructions Recorded Confirmed methIMAzole [Methimazole] 5 mg PO DAILY 03/22/20 06/26/20 Ondansetron [Ondansetron Odt] 8 mg PO BID #30 tab.rapdis 04/12/20 06/26/20 Nystatin [Mycostatin] 5 ml PO QID 06/09/20 06/26/20 Alcohol Antiseptic Pads [Alcohol 1 each TP QID #120 med..pad 06/26/20 Swabs] Blood Sugar Diagnostic [Glucometer 1 each QID #1 packet 06/26/20 Strips] Blood-Glucose Meter [Glucometer] 1 each PRN PRN #1 each 06/26/20 Insulin NPH Human [Humulin N] 10 unit SQ BID #2 vial 06/26/20 Insulin Regular Human [NovoLIN R] 5 unit SUBQ AC #3 ml 06/26/20 Lancets [Blood Lancets] 1 each QID #120 each 06/26/20 Bowie, Disposable [Needle] 1 each QID #120 dis.needle 06/26/20 Syrge-Ndl,Ins 0.3 ml Half Shad 1 each QID #120 disp.syrin 06/26/20 [Insulin Syringe] - Allergies Allergies/Adverse Reactions: Allergies Allergy/AdvReac Type Severity Reaction Status Date / Time No Known Drug Allergies Allergy Verified 06/25/20 08:52 Review of Systems - Constitutional Constitutional: reports: Fatigue, Chills (intermittent chills and night sweats related to the chemo), Night sweats - Eyes Eyes: reports: Blurred vision (new x3 weeks), Other (wears glasses, previously utilized contacts and would experience dry eye). denies: Pain, Spots in vision - Ears, Nose & Throat Ears, Nose & Throat: denies: Ear pain, Hearing loss, Nosebleeds, Sore throat, Mouth lesions, Bleeding gums - Cardiovascular Cariovascular: reports: Lightheadedness (occasional when standing up too fast). denies: Irregular heart rate, Palpitations, Chest pain, Edema - Respiratory Respiratory: denies: Cough, Wheezing, SOB at rest, SOB with exertion - Gastrointestinal Gastrointestinal: denies: Abdominal pain, Abdominal distention, Constipation, Diarrhea, Black stools, Bloody stools, Nausea, Vomiting, Coffee grounds emesis - Genitourinary Genitourinary: reports: Frequency, Urethral discharge ("gooey", not odorous or heavy) - Musculoskeletal Musculoskeletal: denies: Muscle pain, Back pain - Integumentary Integumentary: denies: Rash, Dryness - Neurological Neurological: denies: General weakness, Headache, Numbness - Psychiatric Psychiatric: denies: Depression - Endocrine Endocrine: reports: Polyuria, Polydypsia - Hematologic/Lymphatic Hematologic/Lymphatic: denies: Anemia, Bruising, Petechiae Prior Level of Functionality: Independent with ADLs, driving, cleaning and paying bills. Exam - Vital Signs Reviewed Vital Signs: Yes Vital Signs: Vital Signs x48h Temp Pulse Resp BP Pulse Ox 06/25/20 17:15 37.0 C 78 16 145/76 H 100 06/25/20 15:45 37.0 C 79 16 155/80 H 98 - Physical Exam General Appearance: positive: No acute distress Eyes Bilateral: positive: Normal inspection ENT: positive: ENT inspection nml Neck: positive: Nml inspection. negative: Lymphadenopathy (R), Lymphadenopathy (L) Respiratory: positive: Chest non-tender, No respiratory distress, Breath sounds nml Cardiovascular: positive: Regular rate & rhythm. negative: No murmur, No gallop, Gallop/S4, Friction rub Peripheral Pulses: positive: 2+ Abdomen: positive: Non-tender, No organomegaly, Nml bowel sounds Back: positive: Nml inspection Skin: positive: Pallor Extremities: positive: Non-tender, Full ROM, Nml appearance, No pedal edema Neurologic/Psychiatric: positive: Oriented x3, Motor nml, Sensation nml, Mood/affect nml Sepsis Event Note (H) - Evaluation Current Stage of Sepsis: Ruled out Conclusion/Plan - Problem List (1) Hyperglycemia Conclusion/Plan: Likely related to her current chemo regimen of mab and carboplatin, as this has been shown to occur in up to 61% of patients on this regimen. Given new diagnosis of diabetes though no history or family history, and will hopefully resolve once her chemo is completed or changed. Plan: -Insulin drip and IV fluids -Transition to insulin injections once BG <200 -Diabetic teaching (2) Diabetes Conclusion/Plan: New hyperglycemia, no family hx of diabetes but BG 870 this morning. Likely related to her chemo combination of the mab and carboplatin, as this combo has been shown to cause hyperglycemia in up to 61% of patients on this regimen. Will start on insulin drip and fluids then start diabetes teaching. This will hopefully resolve once her chemo regimen is completed or changed. She will need to be taught how to check her blood sugars and administer Novalog and Lantus pen injections. Will need nursing to perform the teaching as the rn diabetes educator and nutrition will not be in house tomorrow. 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 Due for 4th cycle of chemotherapy this coming Sunday and a 2nd CT scan in 2 weeks Plan: -Defer to Oncologist. Per today's note: Current Treatment: Carboplatin/Etoposide/Atezolizumab every 3 weeks (s/p 3 cycle, dose reduction by 25%, Carbo to AUC 4 and Etoposide to 75 mg/m2) (4) Hyperthyroidism Conclusion/Plan: Well controlled on Methimazole. T4 low at 0.26 and TSHnormal at 3.12. Plan: -Continue to monitor. Defer to PCP. (5) Thrombocytopenia Conclusion/Plan: Chemotherapy related. No signs of active bleeding, gums pink and moist, no nose bleeds or bruising noted. Plan: -Continue to monitor. Platelet infusion for <10 given no active bleeding or sepsis. (6) Hypertension Conclusion/Plan: Does not take medications though previously took Lisinopril and HCTZ. Systolic BPs have been 140-150s, likely elevated related to chemo. Plan: -Defer to PCP and continue to monitor. (7) Vaginal discharge Conclusion/Plan: Initially noted foul smelling heavy discharge last summer, resolved with 2nd round of chemo. Now with "gooey" discharge that does not smell and is not heavy. Plan: -Defer to PCP. Pt declined a pelvic exam at this visit. - Lab Results Fish Bones: 06/26/20 04:43 06/26/20 04:43 Core Measures - Anticipated LOS I expect patient to be DC'd or transferred within 96 hours.: Yes - DVT/VTE - Prophylaxis VTE/DVT Device ordered at admit?: No Not Ordered - Medical Reason: Contraindicated (thrombocytopenia) - Stroke - Rehab Assessment Rehab services assessment to be ordered?: No - AMI - Statin at Admit Aspirin Prescribed on Admit: No
[2020-06-25 19:13] LABS: C. PNEUMONIAE- RESP PCR PANEL NOT DETECTED
[2020-06-25] MEDS ORDERED: INSULIN REGULAR HUMAN 300 UNIT/3 ML VIAL SUBQ ONE (20:28)
[2020-06-25] MEDS ORDERED: INSULIN GLARGINE 300 UNIT/3 ML PEN SUBQ SCH (21:00)
[2020-06-25] MEDS: INSULIN ASPART 300 UNIT/3 ML PEN SUBQ SCH (21:21)
[2020-06-25 21:33] LABS: PLATELET ESTIMATE, MANUAL DECREASED (<130,000) (NORMAL); PLATELET MORPHOLOGY NORMAL APPEARANCE (NORMAL)
[2020-06-25 21:48] LABS: CALCIUM 8.8 mg/dL (8.5-10.3); CREATININE 0.7 mg/dL (0.4-1.0); MAGNESIUM 1.7 mg/dL (1.7-2.8)
[2020-06-25] MEDS: SODIUM CHLORIDE FLUSH 0.9% 10 ML SYRINGE IVP SCH (22:17)
[2020-06-25] MEDS: POTASSIUM CHLORIDE 20 MEQ TABLET PO SCH (23:06)
[2020-06-25] MEDS ORDERED: POTASSIUM CHLOR 10 MEQ/100 ML 10 MEQ/100 ML BAG IV SCH (23:45)
[2020-06-25 23:47] LABS: BILIRUBIN,URINE NEGATIVE (NEGATIVE); GLUCOSE, URINE (UA) >=1000 mg/dL (NEGATIVE); KETONES,URINE (UA) 40 mg/dL (NEGATIVE); LEUKOCYTE ESTERASE, URINE NEGATIVE (NEGATIVE); NITRITE,URINE NEGATIVE (NEGATIVE); OCCULT BLOOD,URINE TRACE-LYSE (NEGATIVE); PH,URINE 5.5 PH (5.0-7.5); PROTEIN,URINE NEGATIVE (NEGATIVE); UROBILINOGEN,URINE 0.2 (NORMAL) E.U./dL (NORMAL)
[2020-06-25 23:49] LABS: CLARITY,URINE CLEAR (CLEAR); HCG UR QUAL NEGATIVE
[2020-06-25] MEDS: POTASSIUM CHLOR 20 MEQ/100 ML 20 MEQ/100 ML BAG IV SCH (23:53)
[2020-06-26] MEDS: SODIUM CHLORIDE FLUSH 0.9% 10 ML SYRINGE IVP SCH ×2 (00:56→12:09)
[2020-06-26] MEDS: POTASSIUM CHLOR 20 MEQ/100 ML 20 MEQ/100 ML BAG IV SCH ×3 (00:56→02:56)
[2020-06-26] MEDS ORDERED: DEXTROSE 50% ABBOJECT 25 GM/50 ML SYRINGE IVP ONE (01:56)
[2020-06-26] MEDS ORDERED: DEXTROSE 50% ABBOJECT 25 GM/50 ML SYRINGE ONE (02:02)
[2020-06-26] MEDS ORDERED: POTASSIUM CHLORIDE 20 MEQ TABLET PO ONE (02:02)
[2020-06-26] MEDS ORDERED: POTASSIUM CHLOR 10 MEQ/100 ML 10 MEQ/100 ML BAG IV ONE (02:03)
[2020-06-26 05:05] LABS: BASOPHILS % (AUTO) 0.5 %; EOSINOPHILS # (AUTO) 0.3 10^3/uL (0.0-0.7); EOSINOPHILS % (AUTO) 4.1 %; HGB - HEMOGLOBIN 10.9 g/dL (12.0-16.0); LYMPHOCYTES # (AUTO) 2.4 10^3/uL (1.5-3.5); LYMPHOCYTES % (AUTO) 38.5 %; MEAN CORPUSCULAR HEMOGLOBIN 30.6 pg (27.0-31.0); MEAN CORPUSCULAR HGB CONC 33.3 g/dL (32.0-36.0); MEAN CORPUSCULAR VOLUME 91.9 fL (81.0-99.0); MEAN PLATELET VOLUME 11.3 fL (7.9-10.8); MONOCYTES # (AUTO) 0.4 10^3/uL (0.0-1.0); MONOCYTES % (AUTO) 6.1 %; NEUTROPHILS # (AUTO) 3.1 10^3/uL (1.5-6.6); NEUTROPHILS % (AUTO) 50.3 %; PLT - PLATELET COUNT 105 10^3/uL (130-450); RED BLOOD COUNT 3.56 10^6/uL (4.20-5.40); RED CELL DISTRIBUTION WIDTH 20.9 % (12.0-15.0); WHITE BLOOD COUNT 6.1 x10^3/uL (4.8-10.8)
[2020-06-26 05:13] LABS: CALCIUM 9.3 mg/dL (8.5-10.3); CREATININE 0.7 mg/dL (0.4-1.0)
[2020-06-26 05:23] LABS: PLATELET ESTIMATE, MANUAL DECREASED (<130,000) (NORMAL); PLATELET MORPHOLOGY NORMAL APPEARANCE (NORMAL)
[2020-06-26 08:25] VITALS: BP 92/67
[2020-06-26] MEDS ORDERED: INSULIN GLARGINE 300 UNIT/3 ML PEN SUBQ SCH ×2 (09:00→21:00)
[2020-06-26] MEDS: INSULIN ASPART 300 UNIT/3 ML PEN SUBQ SCH ×2 (09:02→12:22)
--- NOTE | 2020-06-26 10:39 | Discharge Plan ---
Discharge Plan Problem Reviewed?: Yes Disposition: Home, Self Care Condition: Stable Prescriptions: Alcohol Antiseptic Pads [Alcohol Swabs] 1 each QID #120 med..pad Lancets [Blood Lancets] 1 each QID #120 each Blood-Glucose Meter [Glucometer] 1 each PRN PRN #1 each PRN Reason: Hyperglycemica Blood Sugar Diagnostic [Glucometer Strips] 1 each QID #1 packet Insulin NPH Human [Humulin N] 10 unit SQ BID #2 vial Pen Needle, Diabetic [Insulin Pen Needle] 1 each QID #120 dis.needle Syrge-Ndl,Ins 0.3 ml Half Shad [Insulin Syringe] 1 each QID #120 disp.syrin Insulin Regular Human [NovoLIN R] 5 unit SUBQ AC #3 ml Diet: Diabetic Activity Restrictions: Activity as Tolerated Shower Restrictions: No Driving Restrictions: No Instruction Topics: Hypoglycemia, Diabetes Resources, Insulin Types, Diabetes Carbs, Diabetes Inspect Feet Health Concerns: You were asked to come to our emergency room by your oncologist. They had drawn blood draws as part of your evaluation for chemotherapy for your neuroendocrine tumor. The lab draw showed you to have a glucose of 874. You were placed on an insulin drip. Your glucose dropped to 44. We have transitioned you to a medium acting insulin in a short acting insulin. Your glucose is now in the low 200s. You have also received instruction in how to check your sugar, and give yourself insulin. We think that the new elevated glucose and new diagnosis of diabetes is due to the combination of carboplatinum and the immune modulating chemotherapy drug you take. Plan of Treatment: 1. Start NPH insulin 10 units in the morning before breakfast and at bedtime. This is the medium-acting insulin. We were unable to give you the long-acting insulin called Lantus because your insurance company does not cover it. The NPH will start to lower your sugar slowly over the course of the day and night. 2. Check your morning glucose before eating. If your glucose is above 125, increase both doses of NPH by 2 units (morning and night). For instance if your sugar is 250, increase your NPH to 12 units twice day. Continue to increase your NPH by 2 units every day depending on the morning glucose. The goal is to be 125 or below on your morning glucose. Once you achieve the goal of 125, you stay at that dose of NPH that you took the day before. 3. You will then start to work on controlling your glucose before meals. At this time I am discharging you with 5 units of short acting insulin before each meal. Do not take the 5 units if your premeal glucose is below 150. 4. Prescriptions have been called into [facility] in [place] for the NPH insulin vials, regular insulin vials, insulin pen needles, alcohol swabs, glucometer. Lancets. Glucose strips. 5. Please see your primary care provider in follow-up. They will need to make sure that you are doing well with your glucose control. I would suggest that you keep a small notebook/small diary. Put the date in it with morning afternoon and evening glucose. Write those down. That way your primary care provider can see your diary of glucose and adjust your insulin as needed. 6. I will be referring you to diabetic education classes here at the hospital. It is a lot of information for you to have picked up in 1 day. You will need more information and this will also allow you to ask a lot more questions in a one-on-one fashion. Care Goals: To control your cancer via chemotherapy and to control the side effects of chemotherapy which is new diabetes. Assessment: patient understands care goals and will follow thru Follow-Up Care: Dietitian, [facility] - Diabetes Ed No Smoking: If you smoke, Please STOP! Call for help. Follow-up with: Eris Hogan DO [Primary Care Provider] -
--- NOTE | 2020-06-26 11:48 | DISCHARGE SUMMARY ---
Discharge Summary Admit Date: 06/25/20 Discharge Date: 06/26/20 Discharging Provider: Dr. Ester Ascencio Code Status: Attempt Resuscitation Condition at Discharge: Stable Discharge Disposition: 01 Home, Self Care - DIAGNOSES Admission Diagnoses: (1) Hyperglycemia Likely related to her current chemo regimen of mab and carboplatin, as this has been shown to occur in up to 61% of patients on this regimen. Given new diagnosis of diabetes though no history or family history, and will hopefully resolve once her chemo is completed or changed. Started on an insulin drip and IV fluids. (2) Diabetes New hyperglycemia, no family hx of diabetes but BG 870 morning of admission. Likely related to her chemo combination of the mab and carboplatin, as this combo has been shown to cause hyperglycemia in up to 61% of patients on this regimen. Will start on insulin drip and fluids then start diabetes teaching. This will hopefully resolve once her chemo regimen is completed or changed. She will need to be taught how to check her blood sugars and administer insulin injections. Will need nursing to perform the teaching as the certified lactation educator and nutrition will not be in house tomorrow. Initially started on insulin drip, transitioned to injections overnight once B<200. Nursing has been providing education with each injection and blood glucose check, as has the primary team. 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 Due for 4th cycle of chemotherapy this coming Sunday and a 2nd CT scan in 2 weeks. Defering to oncology for treatment plan. (4) Hyperthyroidism Well controlled on Methimazole. T4 low at 0.26 and TSH normal at 3.12. (5) Thrombocytopenia Chemotherapy related. No signs of active bleeding, gums pink and moist, no nose bleeds or bruising noted. Continue to monitor. (6) Hypertension Does not take medications though previously took Lisinopril and HCTZ. Systolic BPs have been 140-150s, likely elevated related to chemo. Will defer to PCP and continue to monitor. (7) Vaginal discharge Initially noted foul smelling heavy discharge last summer, resolved with 2nd round of chemo. Now with "gooey" discharge that does not smell and is not heavy. Defer to PCP. Pt declined a pelvic exam at this visit. Discharge Diagnoses with Status of Each Condition: 1) Hyperglycemia (Improved/Stable) Likely related to her current chemo regimen of mab and carboplatin, as this has been shown to occur in up to 61% of patients on this regimen. Given new diagnosis of diabetes though no history or family history, and will hopefully resolve once her chemo is completed or changed. Started on an insulin drip and IV fluids and transitioned to subcutaneous injections overnight when her glucose was <200. (2) Diabetes (stable) Initially started on insulin drip, transitioned to injections overnight once B<200. Nursing has been providing education with each injection and blood glucose check, as has the primary team. Will discharge with Regular and NPH insulin and syringes and a glucometer, which she will pick up worker at her preferred pharmacy. She was able to teach back regarding when to check blood sugars, how and when to administer and titrate her insulin, signs of hypo and hyperglycemia, and when to call her doctor. Nursing will work with her on drawing up the insulin and administering appropriately. She reports feeling comfortable regarding this teaching and her knowledge regarding this new diagnosis and feels ready to return home. 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 Due for 4th cycle of chemotherapy this coming Sunday and a 2nd CT scan in 2 weeks. Defering to oncology for treatment plan. (4) Hyperthyroidism (stable) Well controlled on Methimazole. T4 low at 0.26 and TSH normal at 3.12. Discharging with current regimen, will defer to PCP. (5) Thrombocytopenia (stable) Chemotherapy related. No signs of active bleeding, gums pink and moist, no nose bleeds or bruising noted. Continue to monitor. Stable low. (6) Hypertension (stable) Does not take medications though previously took Lisinopril and HCTZ. Systolic BPs have been 140-150s, likely elevated related to chemo. Will defer to PCP. (7) Vaginal discharge Initially noted foul smelling heavy discharge last summer, resolved with 2nd round of chemo. Now with "gooey" discharge that does not smell and is not heavy. Defer to PCP. Pt declined a pelvic exam at this visit. - HPI History of Present Illness: 49 year old female with history of HTN, hyperthyroidism and neuroendocrine carcinoma of unknown primary source presenting from her oncology follow up visit after routine lab work revealed a blood glucose of 870. She does not have a history of diabetes. Her last cycle of chemo was 3 weeks ago, and she reports at that time she noted yellow discoloration to her tongue. Nursing was concerned for development of thrush and she was started on Nystatin swish and swallow. It has not gotten worse or better. She denies mouth sores. Additionally around this time she noticed she was feeling thirstier and also urinating more frequently, which she attributed to drinking more fluids. Her dog also started "acting weird", frequently running up to her and smelling her breath, then running to her and mother and back to her as if trying to tell her something. She has not noticed any odor to her urine or breath. Her vision has been blurry for about 3 weeks, which she attributed to having dry eyes. She does not have numbness or tingling and has not noticed changes in sensation. summer she presented to the ED for leg swelling with a work up that included a chest CT. The CT revealed chest lymphadenopathy and left side supraclavicular mass. 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 A cervical tumor was found after she noticed foul-smelling heavy discharge that resolved after her 2nd cycle of chemo, but she is again noticing discharge that is "gooey" but not heavy or foul smelling. Her 4th cycle of chemotherapy is scheduled for this coming Sunday. She was sent to the ER once her routine lab work revealed this new hyperglycemia. Of note, she has not required medications for her HTN in a few years but was taking HCTZ and Lisinopril previously. She takes Methimazole for her hyperthyroidism, which was diagnosed around the same time as her cancer. - CONSULTS | PROCEDURES Consultations: none - HOSPITAL COURSE Hospital Course: On day of admission, Pt noted to have hyperglycemia >850, new for her. She reported polydipsia and polyuria as well as a yellow tongue, blurry vision and light-headedness when getting up too fast. Denied pain. Reported non-odorous vaginal discharge that she declined to have examined. Started on an insulin drip and IV fluids. Transitioned late last night to Novalog and Lantus injections once BG < 200. BG at 0100 of 44, Pt noted she felt clammy and sweaty. Given "sugar water" and juice and blood sugars immediately over 150. This morning her blood sugars have remained under 200. She has been educated on how and when to check her blood sugars, how and when to inject and titrate insul in, and s/s of hyper and hypoglycemia. She has been able to teach back all of these topics appropriately and feels ready for discharge. Her blood pressures have been borderline hypertensive and she was instructed to follow up with her PCP. Hyperthyroidism has been well controlled with her home medication. Blurry vision is much improved this morning and she is able to read the signs on the wall, something she was unable to do yesterday. Her yellow tongue has also resolved and she no longer needs the Nystatin Swish and Swallow. Prescription sent to her pharmacy of choice for diabetic DME and insulin. She plans to follow up for her 4th cycle of chemo on Sunday and her PCP soon to discuss the diabetes. - ALLERGIES Allergies/Adverse Reactions: Allergies Allergy/AdvReac Type Severity Reaction Status Date / Time No Known Drug Allergies Allergy Verified 06/25/20 08:52 - MEDICATIONS Home Medications: Ambulatory Orders Medication Instructions Recorded Confirmed methIMAzole [Methimazole] 5 mg PO DAILY 03/22/20 06/26/20 Ondansetron [Ondansetron Odt] 8 mg PO BID #30 tab.rapdis 04/12/20 06/26/20 Nystatin [Mycostatin] 5 ml PO QID 06/09/20 06/26/20 Alcohol Antiseptic Pads [Alcohol 1 each QID #120 med..pad 06/26/20 Swabs] Blood Sugar Diagnostic [Glucometer 1 each QID #1 packet 06/26/20 Strips] Blood-Glucose Meter [Glucometer] 1 each PRN PRN #1 each 06/26/20 Insulin NPH Human [Humulin N] 10 unit SQ BID #2 vial 06/26/20 Insulin Regular Human [NovoLIN R] 5 unit SUBQ AC #3 ml 06/26/20 Lancets [Blood Lancets] 1 each QID #120 each 06/26/20 Pen Needle, Diabetic [Insulin Pen 1 each QID #120 dis.needle 06/26/20 Needle] Syrge-Ndl,Ins 0.3 ml Half Shad 1 each QID #120 disp.syrin 06/26/20 [Insulin Syringe] - PHYSICAL EXAM AT DISCHARGE General Appearance: positive: No acute distress Eyes Bilateral: positive: Normal inspection ENT: positive: ENT inspection nml Neck: positive: Nml inspection Respiratory: positive: Chest non-tender, No respiratory distress, Breath sounds nml Cardiovascular: positive: Regular rate & rhythm, No murmur, No gallop Peripheral Pulses: positive: 2+ Abdomen: positive: Non-tender, No organomegaly, Nml bowel sounds, No distention Rectal: positive: Non-tender Back: positive: Nml inspection Skin: positive: Pallor Extremities: positive: Non-tender, Full ROM, Nml appearance Neurologic/Psychiatric: positive: Oriented x3 - LABS Result Diagrams: 06/26/20 04:43 06/26/20 04:43 - SEPSIS Current Stage of Sepsis: Ruled out
[2020-06-26] MEDS ORDERED: INSULIN ASPART 300 UNIT/3 ML PEN SUBQ ONE (12:14)
--- NOTE | 2020-06-26 13:29 | PHARMACY PROGRESS NOTE ---
- Best Possible Medication History Admit Date and Time: 06/25/20 1628 Processed by: Pharmacy Medication History completed: Yes Secondary Source(s): Pharmacy records, Insurance records As the person ultimately responsible for medication therapy, providers are able to order a medication from an existing home medication list in [facility] via the "Reconcile Routine" prior to Confirmation of that medication by ground crewman aircraft support. Such practice is discouraged except when the physician, in their clinical judgment, deems that a medical need exists for a medication without regard to previous use.
--- OUTSIDE RECORDS SUMMARY | 2020-06-30 01:44 | EXTERNAL MEDICAL SUMMARY RPT | Continuity of Care Document ---
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 2020-03-17 14:25 ABNORMAL WEIGHT LOSS [facility]-03-17 22:02 LOCALIZED ENLARGED LYMPH NODES [facility] 2020-03-17 22:02 LOCALIZED SWELLING, MASS AND [facility] LUMP, LEFT LOWER LIMB 2020-03-17 22:02 LOCALIZED EDEMA [facility] 2020-03-17 22:02 PERSONAL HISTORY OF MALIGNANT [facility] NEOPLASM OF LARGE INTESTINE 2020-03-25 10:20 OTHER SECONDARY NEUROENDOCRINE [facility] TUMORS 2020-03-25 10:20 MALIGNANT (PRIMARY) NEOPLASM, [facility] UNSPECIFIED 2020-03-25 10:20 ESSENTIAL (PRIMARY) HYPERTENSION [facility] 2020-03-25 10:20 PERSONAL HISTORY OF MALIGNANT [facility] NEOPLASM OF LARGE INTESTINE 2020-04-03 19:01 SECONDARY AND UNSP MALIGNANT [facility] NEOPLASM OF INTRA-ABD 2020-04-03 19:01 MALIGNANT POORLY DIFFERENTIATED [facility] NEUROENDOCRINE TERELL 2020-04-03 19:01 NEOPLASM OF UNCERTAIN BEHAVIOR [facility] OF UTERUS 2020-04-03 19:01 ANEMIA, UNSPECIFIED [facility] 2020-04-03 19:01 ESSENTIAL (PRIMARY) HYPERTENSION [facility] 2020-04-03 19:01 CALCUL[facility]AD[facility]ST 2020-04-05 00:00:00 Malignant [facility]oid [facility] primary [facility] 2020-04-05 00:00:00 Other specified noninflammatory [facility] disorders of cervix [facility] 2020-04-05 00:00:00 Other [facility] 2020-04-05 00:00:00 Other specified noninflammatory [facility] disorders of cervix uteri [facility] 2020-04-05 00:00:00 [facility]ocrine [facility] 2020-04-05 00:00:00 Disorder of uterine cervix [facility] 2020-04-15 00:00:00 CHLAM, NEISSERIA, TRICH DNA [facility] 2020-04-15 00:00:00 Le[facility]orrhea, [facility] infective [facility] 2020-04-15 00:00:00 Other specified symptoms [facility] associated with female genital [facility] organs 2020-04-15 00:00:00 Screening examination for [facility] venereal disease [facility] 2020-04-15 00:00:00 BIOPSY OF CERVIX, SINGLE OR [facility] MULTIPLE [facility] 2020-04-15 00:00:00 Vaginitis 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 [facility] III [facility] 2020-04-15 00:00:00 THIN PREP PAP with HPV 30+YRS [facility] OLD [facility] 2020-04-15 00:00:00 E[facility] 2020-04-15 00:00:00 Other specified noninflammatory [facility] disorders of uterus [facility] 2020-04-15 00:00:00 Other specified [facility]inflammatory [facility] disorders of vagina [facility] 2020-04-15 00:00:00 Encounter for screening for [facility] infections with a predominantly [facility] sexual mode of transmission 2020-04-15 00:00:00 Mass of uterus [facility] 2020-04-15 00:00:00 Alcohol intake [facility] 2020-04-15 00:00:00 Venereal disease screening [facility] Primary Care [facility] 2020-04-15 00:00:00 Health-related behavior [facility] Primary Care [facility] 2020-04-15 00:00:00 Tobacco use and exposure [facility] Primary Care [facility] 2020-04-15 00:00:00 Never smoker [facility] 2020-04-15 00:00:00 Vaginal discharge [facility] 2020-04-15 00:00:00 Alcohol use [facility] 2020-04-15 00:00:00 Tobacco [facility] 2020-04-16 00:00 OTHER SPECIFIED NONINFLAMMATORY [facility] DISORDERS OF VAGINA 2020-04-16 00:00 ENCNTR SCREEN FOR INFECTIONS W [facility] SEXL MODE OF TRANSMISS 2020-04-16 07:00 OTHER MALIGNANT NEUROENDOCRINE [facility] TUMORS 2020-04-16 07:00 [facility] 2020-04-16 07:00 ENCOUNTER FOR PREPROCEDURAL [facility] LABORATORY EXAMINATION 2020-04-16 07:00 ENCNTR SCREEN FOR INFECTIONS W [facility] SEXL MODE OF TRANSMISS 2020-04-16 07:00 CONTACT W AND EXPOSURE TO OTH [facility] VIRAL COMMUNICABLE DISEASES 2020-04-16 13:00 OTHER SECONDARY NEUROENDOCRINE [facility] TUMORS 2020-04-16 13:00 MALIGNANT (PRIMARY) NEOPLASM, 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 (CHRONIC) 2020-04-16 13:00 ESSENTIAL (PRIMARY) HYPERTENSION [facility] 2020-04-16 13:00 OTHER SPECIFIED NONINFLAMMATORY [facility] DISORDERS OF VAGINA 2020-04-16 13:00 ENCOUNTER FOR PALLIATIVE CARE [facility] 2020-04-16 13:00 [facility] (CURRENT) USE OF [facility] OPIATE ANALGESIC 2020-04-16 13:00 OTHER HEAD LINEMAN (CURRENT) DRUG [facility] THERAPY 2020-04-16 13:00 PERSONAL HISTORY OF MALIGNANT [facility] NEOPLASM OF LARGE INTESTINE 2020-04-16 13:00 PERSONAL HISTORY OF MALIGNANT [facility] NEOPLASM OF CERVIX UTERI 2020-04-16 13:00 PERSONAL HISTORY OF [facility] ANTINEOPLASTIC CHEMOTHERAPY 2020-04-16 15:37 OTHER MALIGNANT NEUROENDOCRINE [facility] TUMORS 2020-04-16 15:37 ENCOUNTER FOR PREPROCEDURAL [facility] LABORATORY EXAMINATION 2020-04-16 15:37 CONTACT W AND EXPOSURE TO OTH [facility] VIRAL COMMUNICABLE DISEASES 2020-04-20 10:25 OTHER MALIGNANT NEUROENDOCRINE 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 TUMORS 2020-04-21 13:00 MALIGNANT (PRIMARY) NEOPLASM, 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 (CHRONIC) 2020-04-21 13:00 ESSENTIAL (PRIMARY) HYPERTENSION [facility] 2020-04-21 13:00 OTHER SPECIFIED NONINFLAMMATORY [facility] DISORDERS OF VAGINA 2020-04-21 13:00 ENCOUNTER FOR PALLIATIVE CARE [facility] 2020-04-21 13:00 HEAD LINEMAN (CURRENT) USE OF [facility] OPIATE ANALGESIC 2020-04-21 13:00 OTHER HEAD LINEMAN (CURRENT) DRUG [facility] THERAPY 2020-04-21 13:00 PERSONAL HISTORY OF MALIGNANT [facility] NEOPLASM OF LARGE INTESTINE 2020-04-21 13:00 PERSONAL HISTORY OF MALIGNANT [facility] NEOPLASM OF CERVIX UTERI 2020-04-21 13:00 PERSONAL HISTORY OF [facility] ANTINEOPLASTIC CHEMOTHERAPY 2020-04-22 13:00 OTHER SECONDARY NEUROENDOCRINE [facility] TUMORS 2020-04-22 13:00 MALIGNANT (PRIMARY) NEOPLASM, 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 (CHRONIC) 2020-04-22 13:00 ESSENTIAL (PRIMARY) HYPERTENSION [facility] 2020-04-22 13:00 OTHER SPECIFIED NONINFLAMMATORY [facility] DISORDERS OF VAGINA 2020-04-22 13:00 ENCOUNTER FOR PALLIATIVE CARE [facility] 2020-04-22 13:00 M[facility] (CURRENT) USE OF [facility] OPIATE ANALGESIC 2020-04-22 13:00 OTHER HEAD LINEMAN (CURRENT) DRUG [facility] THERAPY 2020-04-22 13:00 PERSONAL HISTORY OF MALIGNANT [facility] NEOPLASM OF LARGE INTESTINE 2020-04-22 13:00 PERSONAL HISTORY OF MALIGNANT [facility] NEOPLASM OF CERVIX UTERI 2020-04-22 13:00 PERSONAL HISTORY OF [facility] ANTINEOPLASTIC CHEMOTHERAPY 2020-04-23 13:00 OTHER SECONDARY NEUROENDOCRINE [facility] TUMORS 2020-04-23 13:00 MALIGNANT (PRIMARY) NEOPLASM, 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 (CHRONIC) 2020-04-23 13:00 ESSENTIAL (PRIMARY) HYPERTENSION [facility] 2020-04-23 13:00 OTHER SPECIFIED NONINFLAMMATORY [facility] DISORDERS OF VAGINA 2020-04-23 13:00 ENCOUNTER FOR ANTINEOPLASTIC [facility] CHEMOTHERAPY 2020-04-23 13:00 ENCOUNTER FOR ANTINEOPLASTIC [facility] IMMUNOTHERAPY 2020-04-23 13:00 ENCOUNTER FOR PALLIATIVE CARE [facility] 2020-04-23 13:00 MCC (CURRENT) USE OF [facility] OPIATE ANALGESIC 2020-04-23 13:00 OTHER HEAD LINEMAN (CURRENT) DRUG [facility] THERAPY 2020-04-23 13:00 PERSONAL HISTORY OF MALIGNANT [facility] NEOPLASM OF LARGE INTESTINE 2020-04-23 13:00 PERSONAL HISTORY OF MALIGNANT [facility] NEOPLASM OF CERVIX UTERI 2020-04-23 13:00 PERSONAL HISTORY OF [facility] ANTINEOPLASTIC CHEMOTHERAPY 2020-04-24 12:35 SECONDARY AND UNSP MALIGNANT [facility] NEOPLASM OF INTRA-ABD NODES 2020-04-24 12:35 MALIGNANT POORLY DIFFERENTIATED [facility] NEUROENDOCRINE TUMORS 2020-04-24 13:00 SECONDARY AND UNSP MALIGNANT [facility] NEOPLASM OF INTRA-ABD NODES 2020-04-24 13:00 MALIGNANT POORLY DIFFERENTIATED [facility] NEUROENDOCRINE TUMORS 2020-05-03 01:23 MALIGNANT (PRIMARY) NEOPLASM, [facility] UNSPECIFIED 2020-05-03 01:23 THYROTOXICOSIS, UNSP WITHOUT [facility] THYROTOXIC CRISIS OR 2020-05-03 01:23 UNSPECIFIED VISUAL LOSS [facility] 2020-05-03 01:23 DYSPLASIA OF VAGINA, UNSPECIFIED [facility] 2020-05-03 01:23 FEVER PRESENTING WITH CONDITIONS [facility] CLASSIFIED ELSEWH 2020-05-03 01:23 FEVER PRESENTING WITH CONDITIONS [facility] CLASSIFIED ELSEWHERE 2020-05-03 01:23 ADVERSE EFFECT OF OTHER OPIOIDS, [facility] INITIAL ENCOUNTER 2020-05-03 01:23 ADVERSE EFFECT OF ANTINEOPLASTIC [facility] AND IMMUNOSUP CHRYSTAL 2020-05-03 01:23 ADVERSE EFFECT OF ANTINEOPLASTIC [facility] AND IMMUNOSUP DRUGS, INIT 2020-05-03 01:23 HEALTH CARE PROVIDER OFFICE [facility] PLACE 2020-05-03 01:23 PERSONAL HISTORY OF MALIGNANT [facility] NEOPLASM OF LARGE IN 2020-05-03 01:23 PERSONAL HISTORY OF MALIGNANT [facility] NEOPLASM OF LARGE INTESTINE 2020-05-03 01:23 OTHER SECONDARY NEUROENDOCRINE 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 2020-05-03 01:23 HEAD LINEMAN (CURRENT) USE OF [facility] OPIATE ANALGESIC 2020-05-03 01:23 OTHER [facility] (CURRENT) DRUG [facility] THERAPY 2020-05-07 00:00:00 Other pancytopenia [facility] Prim jason Care [facility] 2020-05-07 00:00:00 Neutropenia, unspecified [facility] Care [facility] 2020-05-07 00:00:00 Pancytopenia [facility] 2020-05-07 00:00:[facility] 2020-05-07 13:45 OTHER SECONDARY NEUROENDOCRINE [facility] TUMORS 2020-05-07 13:45 MALIGNANT (PRIMARY) NEOPLASM, 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 (CHRONIC) 2020-05-07 13:45 ESSENTIAL (PRIMARY) HYPERTENSION [facility] 2020-05-07 13:45 OTHER SPECIFIED NONINFLAMMATORY [facility] DISORDERS OF VAGINA 2020-05-07 13:45 ENCOUNTER FOR ANTINEOPLASTIC [facility] CHEMOTHERAPY 2020-05-07 13:45 ENCOUNTER FOR ANTINEOPLASTIC [facility] IMMUNOTHERAPY 2020-05-07 13:[address] E[address] PALLI[address]IVE CARE [facility] 2020-05-07 13:45 M[facility] (CURRENT) USE OF [facility] OPIATE ANALGESIC 2020-05-07 13:45 OTHER HEAD LINEMAN (CURRENT) DRUG [facility] THERAPY 2020-05-07 13:45 PERSONAL HISTORY OF MALIGNANT [facility] NEOPLASM OF LARGE INTESTINE 2020-05-07 13:45 PERSONAL HISTORY OF MALIGNANT [facility] NEOPLASM OF CERVIX UTERI 2020-05-07 13:45 PERSONAL HISTORY OF [facility] ANTINEOPLASTIC CHEMOTHERAPY 2020-05-07 14:20 OTHER SECONDARY NEUROENDOCRINE [facility] TUMORS 2020-05-07 14:20 MALIGNANT (PRIMARY) NEOPLASM, 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 (CHRONIC) 2020-05-07 14:20 ESSENTIAL (PRIMARY) HYPERTENSION [facility] 2020-05-07 14:20 OTHER SPECIFIED NONINFLAMMATORY [facility] DISORDERS OF VAGINA 2020-05-07 14:20 ENCOUNTER FOR ANTINEOPLASTIC [facility] CHEMOTHERAPY 2020-05-07 14:20 ENCOUNTER FOR ANTINEOPLASTIC [facility] IMMUNOTHERAPY 2020-05-07 14:20 E[address]OUN[address] FOR PALLIATIVE CARE [facility] 2020-05-07 14:20 M[facility] (CURRENT) USE OF [facility] OPIATE ANALGESIC 2020-05-07 14:20 OTHER [facility] (CURRENT) DRUG [facility] THERAPY 2020-05-07 14:20 PERSONAL HISTORY OF MALIGNANT [facility] NEOPLASM OF LARGE INTESTINE 2020-05-07 14:20 PERSONAL HISTORY OF MALIGNANT [facility] NEOPLASM OF CERVIX UTERI 2020-05-07 14:20 PERSONAL HISTORY OF [facility] ANTINEOPLASTIC CHEMOTHERAPY 2020-05-10 12:15 OTHER SECONDARY NEUROENDOCRINE [facility] TUMORS 2020-05-10 12:15 MALIGNANT (PRIMARY) NEOPLASM, 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 (CHRONIC) 2020-05-10 12:15 ESSENTIAL (PRIMARY) HYPERTENSION [facility] 2020-05-10 12:15 OTHER SPECIFIED NONINFLAMMATORY [facility] DISORDERS OF VAGINA 2020-05-10 12:15 ENCOUNTER FOR ANTINEOPLASTIC [facility] CHEMOTHERAPY 2020-05-10 12:15 ENCOUNTER FOR ANTINEOPLASTIC [facility] IMMUNOTHERAPY 2020-05-10 12:[address] E[address] PALLI[address] CARE [facility] 2020-05-10 12:15 M[facility] (CURRENT) USE OF [facility] OPIATE ANALGESIC 2020-05-10 12:15 OTHER HEAD LINEMAN (CURRENT) DRUG [facility] THERAPY 2020-05-10 12:15 PERSONAL HISTORY OF MALIGNANT [facility] NEOPLASM OF LARGE INTESTINE 2020-05-10 12:15 PERSONAL HISTORY OF MALIGNANT [facility] NEOPLASM OF CERVIX UTERI 2020-05-10 12:15 PERSONAL HISTORY OF [facility] ANTINEOPLASTIC CHEMOTHERAPY 2020-05-11 12:30 OTHER SECONDARY NEUROENDOCRINE [facility] TUMORS 2020-05-11 12:30 MALIGNANT (PRIMARY) NEOPLASM, 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 (CHRONIC) 2020-05-11 12:30 ESSENTIAL (PRIMARY) HYPERTENSION [facility] 2020-05-11 12:30 OTHER SPECIFIED NONINFLAMMATORY [facility] DISORDERS OF VAGINA 2020-05-11 12:30 ENCOUNTER FOR ANTINEOPLASTIC [facility] CHEMOTHERAPY 2020-05-11 12:30 ENCOUNTER FOR ANTINEOPLASTIC [facility] IMMUNOTHERAPY 2020-05-11 12:30 ENCOUNTER FOR PALLIATIVE CARE [facility] 2020-05-11 12:30 HEAD LINEMAN (CURRENT) USE OF [facility] OPIATE ANALGESIC 2020-05-11 12:30 OTHER [facility] (CURRENT) DRUG [facility] THERAPY 2020-05-11 12:30 PERSONAL HISTORY OF MALIGNANT [facility] NEOPLASM OF LARGE INTESTINE 2020-05-11 12:30 PERSONAL HISTORY OF MALIGNANT [facility] NEOPLASM OF CERVIX UTERI 2020-05-11 12:30 PERSONAL HISTORY OF [facility] ANTINEOPLASTIC CHEMOTHERAPY 2020-05-12 12:30 OTHER SECONDARY NEUROENDOCRINE [facility] TUMORS 2020-05-12 12:30 MALIGNANT (PRIMARY) NEOPLASM, [facility] UNSPECIFIED 2020-05-12 12:30 THYROTOXICOSIS, UNSP WITHOUT [facility] THYROTOXIC CRISIS OR STORM 2020-05-12 12:30 NEOPLASM RELATED PAIN (ACUTE) [facility] (CHRONIC) 2020-05-12 12:30 ESS[facility] (PRIMARY) [facility] 2020-05-12 12:30 OTHER SPECIFIED NONINFLAMMATORY [facility] DISORDERS OF VAGINA 2020-05-12 12:30 ENCOUNTER FOR ANTINEOPLASTIC [facility] CHEMOTHERAPY 2020-05-12 12:30 ENCOUNTER FOR ANTINEOPLASTIC [facility] IMMUNOTHERAPY 2020-05-12 12:30 ENCOUNTER FOR PALLIATIVE CARE [facility] 2020-05-12 12:30 HEAD LINEMAN (CURRENT) USE OF [facility] OPIATE ANALGESIC 2020-05-12 12:30 OTHER [facility] (CURRENT) DRUG [facility] THERAPY 2020-05-12 12:30 PERSONAL HISTORY OF MALIGNANT [facility] NEOPLASM OF LARGE INTESTINE 2020-05-12 12:30 PERSONAL HISTORY OF MALIGNANT [facility] NEOPLASM OF CERVIX UTERI 2020-05-12 12:30 PERSONAL HISTORY OF [facility] ANTINEOPLASTIC CHEMOTHERAPY 2020-05-14 09:30 OTHER SECONDARY NEUROENDOCRINE [facility] TUMORS 2020-05-14 09:30 MALIGNANT (PRIMARY) NEOPLASM, [facility] UNSPECIFIED 2020-05-14 09:30 THYROTOXICOSIS, UNSP WITHOUT [facility] THYROTOXIC CRISIS OR STORM 2020-05-14 09:30 NEOPLASM RELATED PAIN (ACUTE) [facility] (CHRONIC) 2020-05-14 09:30 ESSENTIAL (PRIMARY) HYPERTENSION [facility] 2020-05-14 09:30 OTHER SPECIFIED NONINFLAMMATORY [facility] DISORDERS OF VAGINA 2020-05-14 09:30 ENCOUNTER FOR ANTINEOPLASTIC [facility] CHEMOTHERAPY 2020-05-14 09:30 ENCOUNTER FOR ANTINEOPLASTIC [facility] IMMUNOTHERAPY 2020-05-14 09:30 ENCOUNTER FOR PALLIATIVE CARE [facility] 2020-05-14 09:30 HEAD LINEMAN (CURRENT) USE OF [facility] OPIATE ANALGESIC 2020-05-14 09:30 OTHER HEAD LINEMAN (CURRENT) DRUG [facility] THERAPY 2020-05-14 09:30 PERSONAL HISTORY OF MALIGNANT [facility] NEOPLASM OF LARGE INTESTINE 2020-05-14 09:30 PERSONAL HISTORY OF MALIGNANT [facility] NEOPLASM OF CERVIX UTERI 2020-05-14 09:30 PERSONAL HISTORY OF [facility] ANTINEOPLASTIC CHEMOTHERAPY 2020-05-17 08:30 OTHER SECONDARY NEUROENDOCRINE [facility] TUMORS 2020-05-17 08:30 MALIGNANT (PRIMARY) NEOPLASM, [facility] UNSPECIFIED 2020-05-17 08:30 THYROTOXICOSIS, UNSP WITHOUT [facility] THYROTOXIC CRISIS OR STORM 2020-05-17 08:30 NEOPLASM RELATED PAIN (ACUTE) [facility] (CHRONIC) 2020-05-17 08:30 ESSENTIAL (PRIMARY) HYPERTENSION [facility] 2020-05-17 08:30 OTHER SPECIFIED NONINFLAMMATORY [facility] DISORDERS OF VAGINA 2020-05-17 08:30 ENCOUNTER FOR ANTINEOPLASTIC [facility] CHEMOTHERAPY 2020-05-17 08:30 ENCOUNTER FOR ANTINEOPLASTIC [facility] IMMUNOTHERAPY 2020-05-17 08:30 ENCOUNTER FOR PALLIATIVE CARE [facility] 2020-05-17 08:30 HEAD LINEMAN (CURRENT) USE OF [facility] OPIATE ANALGESIC 2020-05-17 08:30 OTHER [facility] (CURRENT) DRUG [facility] THERAPY 2020-05-17 08:30 PERSONAL HISTORY OF MALIGNANT [facility] NEOPLASM OF LARGE INTESTINE 2020-05-17 08:30 PERSONAL HISTORY OF MALIGNANT [facility] NEOPLASM OF CERVIX UTERI 2020-05-17 08:30 PERSONAL HISTORY OF [facility] ANTINEOPLASTIC CHEMOTHERAPY 2020-05-18 09:20 OTHER SECONDARY NEUROENDOCRINE [facility] TUMORS 2020-05-18 09:20 MALIGNANT (PRIMARY) NEOPLASM, [facility] UNSPECIFIED 2020-05-18 09:20 THYROTOXICOSIS, UNSP WITHOUT [facility] THYROTOXIC CRISIS OR STORM 2020-05-18 09:20 NEOPLASM RELATED PAIN (ACUTE) [facility] (CHRONIC) 2020-05-18 09:20 ESSENTIAL (PRIMARY) HYPERTENSION [facility] 2020-05-18 09:20 OTHER SPECIFIED NONINFLAMMATORY [facility] DISORDERS OF VAGINA 2020-05-18 09:20 ENCOUNTER FOR ANTINEOPLASTIC [facility] CHEMOTHERAPY 2020-05-18 09:20 ENCOUNTER FOR ANTINEOPLASTIC [facility] IMMUNOTHERAPY 2020-05-18 09:20 ENCOUNTER FOR PALLIATIVE CARE [facility] 2020-05-18 09:20 HEAD LINEMAN (CURRENT) USE OF [facility] OPIATE ANALGESIC 2020-05-18 09:20 OTHER HEAD LINEMAN (CURRENT) DRUG [facility] THERAPY 2020-05-18 09:20 PERSONAL HISTORY OF MALIGNANT [facility] NEOPLASM OF LARGE INTESTINE 2020-05-18 09:20 PERSONAL HISTORY OF MALIGNANT [facility] NEOPLASM OF CERVIX UTERI 2020-05-18 09:20 PERSONAL HISTORY OF [facility] ANTINEOPLASTIC CHEMOTHERAPY 2020-05-19 09:30 OTHER SECONDARY NEUROENDOCRINE [facility] TUMORS 2020-05-19 09:30 MALIGNANT (PRIMARY) NEOPLASM, [facility] UNSPECIFIED 2020-05-19 09:30 THYROTOXICOSIS, UNSP WITHOUT [facility] THYROTOXIC CRISIS OR STORM 2020-05-19 09:30 NEOPLASM RELATED PAIN (ACUTE) [facility] (CHRONIC) 2020-05-19 09:30 ESSENTIAL (PRIMARY) HYPERTENSION [facility] 2020-05-19 09:30 OTHER SPECIFIED NONINFLAMMATORY [facility] DISORDERS OF VAGINA 2020-05-19 09:30 ENCOUNTER FOR ANTINEOPLASTIC [facility] CHEMOTHERAPY 2020-05-19 09:30 ENCOUNTER FOR ANTINEOPLASTIC [facility] IMMUNOTHERAPY 2020-05-19 09:30 ENCOUNTER FOR PALLIATIVE CARE [facility] 2020-05-19 09:30 HEAD LINEMAN (CURRENT) USE OF [facility] OPIATE ANALGESIC 2020-05-19 09:30 OTHER HEAD LINEMAN (CURRENT) DRUG [facility] THERAPY 2020-05-19 09:30 PERSONAL HISTORY OF MALIGNANT [facility] NEOPLASM OF LARGE INTESTINE 2020-05-19 09:30 PERSONAL HISTORY OF MALIGNANT [facility] NEOPLASM OF CERVIX UTERI 2020-05-19 09:30 PERSONAL HISTORY OF [facility] ANTINEOPLASTIC CHEMOTHERAPY 2020-05-20 08:45 OTHER SECONDARY NEUROENDOCRINE [facility] TUMORS 2020-05-20 08:45 MALIGNANT (PRIMARY) NEOPLASM, [facility] UNSPECIFIED 2020-05-20 08:45 OTHER SECONDARY THROMBOCYTOPENIA [facility] 2020-05-20 08:45 AGRANULOCYTOSIS SECONDARY TO [facility] CANCER CHEMOTHERAPY 2020-05-20 08:45 THYROTOXICOSIS, UNSP WITHOUT [facility] THYROTOXIC CRISIS OR STORM 2020-05-20 08:45 NEOPLASM RELATED PAIN (ACUTE) [facility] (CHRONIC) 2020-05-20 08:45 ESSENTIAL (PRIMARY) HYPERTENSION [facility] 2020-05-20 08:45 OTHER SPECIFIED NONINFLAMMATORY [facility] DISORDERS OF VAGINA 2020-05-20 08:45 FEVER PRESENTING WITH CONDITIONS [facility] CLASSIFIED ELSEWHERE 2020-05-20 08:45 ADVERSE EFFECT OF ANTINEOPLASTIC [facility] AND IMMUNOSUP DRUGS, INIT 2020-05-20 08:45 ENCOUNTER FOR ANTINEOPLASTIC [facility] CHEMOTHERAPY 2020-05-20 08:45 ENCOUNTER FOR ANTINEOPLASTIC [facility] IMMUNOTHERAPY 2020-05-20 08:45 ENCOUNTER FOR PALLIATIVE CARE [facility] 2020-05-20 08:45 [facility] (CURRENT) USE OF [facility] OPIATE ANALGESIC 2020-05-20 08:45 OTHER HEAD LINEMAN (CURRENT) DRUG [facility] THERAPY 2020-05-20 08:45 PERSONAL HISTORY OF MALIGNANT [facility] NEOPLASM OF LARGE INTESTINE 2020-05-20 08:45 PERSONAL HISTORY OF MALIGNANT [facility] NEOPLASM OF CERVIX UTERI 2020-05-20 08:45 PERSONAL HISTORY OF [facility] ANTINEOPLASTIC CHEMOTHERAPY 2020-06-01 07:45 OTHER SECONDARY NEUROENDOCRINE [facility] TUMORS 2020-06-01 07:45 MALIGNANT (PRIMARY) NEOPLASM, [facility] UNSPECIFIED 2020-06-01 07:45 OTHER SECONDARY THROMBOCYTOPENIA [facility] 2020-06-01 07:45 AGRANULOCYTOSIS SECONDARY TO [facility] CANCER CHEMOTHERAPY 2020-06-01 07:45 THYROTOXICOSIS, UNSP WITHOUT [facility] THYROTOXIC CRISIS OR STORM 2020-06-01 07:45 NEOPLASM RELATED PAIN (ACUTE) [facility] (CHRONIC) 2020-06-01 07:45 ESSENTIAL (PRIMARY) HYPERTENSION [facility] 2020-06-01 07:45 OTHER SPECIFIED NONINFLAMMATORY [facility] DISORDERS OF VAGINA 2020-06-01 07:45 FEVER PRESENTING WITH CONDITIONS [facility] CLASSIFIED ELSEWHERE 2020-06-01 07:45 ADVERSE EFFECT OF ANTINEOPLASTIC [facility] AND IMMUNOSUP DRUGS, INIT 2020-06-01 07:45 ENCOUNTER FOR ANTINEOPLASTIC [facility] CHEMOTHERAPY 2020-06-01 07:45 ENCOUNTER FOR ANTINEOPLASTIC [facility] IMMUNOTHERAPY 2020-06-01 07:45 ENCOUNTER FOR PALLIATIVE CARE 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 THERAPY 2020-06-01 07:45 PERSONAL HISTORY OF MALIGNANT [facility] NEOPLASM OF LARGE INTESTINE 2020-06-01 07:45 PERSONAL HISTORY OF MALIGNANT [facility] NEOPLASM OF CERVIX UTERI 2020-06-01 07:45 PERSONAL HISTORY OF [facility] ANTINEOPLASTIC CHEMOTHERAPY 2020-06-01 08:20 OTHER SECONDARY NEUROENDOCRINE [facility] TUMORS 2020-06-01 08:20 MALIGNANT (PRIMARY) NEOPLASM, [facility] UNSPECIFIED 2020-06-01 08:20 OTHER SECONDARY THROMBOCYTOPENIA [facility] 2020-06-01 08:20 AGRANULOCYTOSIS SECONDARY TO [facility] CANCER CHEMOTHERAPY 2020-06-01 08:20 THYROTOXICOSIS, UNSP WITHOUT [facility] THYROTOXIC CRISIS OR STORM 2020-06-01 08:20 NEOPLASM RELATED PAIN (ACUTE) [facility] (CHRONIC) 2020-06-01 08:20 ESSENTIAL (PRIMARY) HYPERTENSION [facility] 2020-06-01 08:20 OTHER SPECIFIED NONINFLAMMATORY [facility] DISORDERS OF VAGINA 2020-06-01 08:20 FEVER PRESENTING WITH CONDITIONS [facility] CLASSIFIED ELSEWHERE 2020-06-01 08:20 ADVERSE EFFECT OF ANTINEOPLASTIC [facility] AND IMMUNOSUP DRUGS, INIT 2020-06-01 08:20 ENCOUNTER FOR ANTINEOPLASTIC [facility] CHEMOTHERAPY 2020-06-01 08:20 ENCOUNTER FOR ANTINEOPLASTIC [facility] IMMUNOTHERAPY 2020-06-01 08:20 ENCOUNTER FOR PALLIATIVE CARE 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 THERAPY 2020-06-01 08:20 PERSONAL HISTORY OF MALIGNANT [facility] NEOPLASM OF LARGE INTESTINE 2020-06-01 08:20 PERSONAL HISTORY OF MALIGNANT [facility] NEOPLASM OF CERVIX UTERI 2020-06-01 08:20 PERSONAL HISTORY OF [facility] ANTINEOPLASTIC CHEMOTHERAPY 2020-06-07 09:15 OTHER SECONDARY NEUROENDOCRINE [facility] TUMORS 2020-06-07 09:15 MALIGNANT (PRIMARY) NEOPLASM, [facility] UNSPECIFIED 2020-06-07 09:15 OTHER SECONDARY THROMBOCYTOPENIA [facility] 2020-06-07 09:15 AGRANULOCYTOSIS SECONDARY TO [facility] CANCER CHEMOTHERAPY 2020-06-07 09:15 THYROTOXICOSIS, UNSP WITHOUT [facility] THYROTOXIC CRISIS OR STORM 2020-06-07 09:15 NEOPLASM RELATED PAIN (ACUTE) [facility] (CHRONIC) 2020-06-07 09:15 ESSENTIAL (PRIMARY) HYPERTENSION [facility] 2020-06-07 09:15 OTHER SPECIFIED NONINFLAMMATORY [facility] DISORDERS OF VAGINA 2020-06-07 09:15 FEVER PRESENTING WITH CONDITIONS [facility] CLASSIFIED ELSEWHERE 2020-06-07 09:15 ADVERSE EFFECT OF ANTINEOPLASTIC [facility] AND IMMUNOSUP DRUGS, INIT 2020-06-07 09:15 ENCOUNTER FOR ANTINEOPLASTIC [facility] CHEMOTHERAPY 2020-06-07 09:15 [facility] IMMUNOTHERAPY 2020-06-07 09:15 ENCOUNTER FOR PALLIATIVE CARE [facility] 2020-06-07 09:15 MCC (CURRENT) USE OF [facility] OPIATE ANALGESIC 2020-06-07 09:15 OTHER M[facility] (CURRENT) DRUG [facility] THERAPY 2020-06-07 09:15 PERSONAL HISTORY OF MALIGNANT [facility] NEOPLASM OF LARGE INTESTINE 2020-06-07 09:15 PERSONAL HISTORY OF MALIGNANT [facility] NEOPLASM OF CERVIX UTERI 2020-06-07 09:15 PERSONAL HISTORY OF [facility] ANTINEOPLASTIC CHEMOTHERAPY 2020-06-08 08:30 OTHER SECONDARY NEUROENDOCRINE [facility] TUMORS 2020-06-08 08:30 MALIGNANT (PRIMARY) NEOPLASM, 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 (CHRONIC) 2020-06-08 08:30 ESSENTIAL (PRIMARY) HYPERTENSION [facility] 2020-06-08 08:30 OTHER SPECIFIED NONINFLAMMATORY [facility] DISORDERS OF VAGINA 2020-06-08 08:30 FEVER PRESENTING WITH CONDITIONS [facility] CLASSIFIED ELSEWHERE 2020-06-08 08:30 ADVERSE EFFECT OF ANTINEOPLASTIC [facility] AND IMMUNOSUP DRUGS, INIT 2020-06-08 08:30 ENCOUNTER FOR ANTINEOPLASTIC [facility] CHEMOTHERAPY 2020-06-08 08:30 ENCOUNTER FOR ANTINEOPLASTIC [facility] IMMUNOTHERAPY 2020-06-08 08:30 ENCOUNTER FOR PALLIATIVE CARE 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 THERAPY 2020-06-08 08:30 PERSONAL HISTORY OF MALIGNANT [facility] NEOPLASM OF LARGE INTESTINE 2020-06-08 08:30 PERSONAL HISTORY OF MALIGNANT [facility] NEOPLASM OF CERVIX UTERI 2020-06-08 08:30 PERSONAL HISTORY OF [facility] ANTINEOPLASTIC CHEMOTHERAPY 2020-06-09 12:00 OTHER SECONDARY NEUROENDOCRINE [facility] TUMORS 2020-06-09 12:00 MALIGNANT (PRIMARY) NEOPLASM, [facility] UNSPECIFIED 2020-06-09 12:00 OTHER SECONDARY THROMBOCYTOPENIA [facility] 2020-06-09 12:00 AGRANULOCYTOSIS SECONDARY TO [facility] CANCER CHEMOTHERAPY 2020-06-09 12:00 THYROTOXICOSIS, UNSP WITHOUT [facility] THYROTOXIC CRISIS OR STORM 2020-06-09 12:00 NEOPLASM RELATED PAIN (ACUTE) [facility] (CHRONIC) 2020-06-09 12:00 ESSENTIAL (PRIMARY) HYPERTENSION [facility] 2020-06-09 12:00 OTHER SPECIFIED NONINFLAMMATORY [facility] DISORDERS OF VAGINA 2020-06-09 12:00 FEVER PRESENTING WITH CONDITIONS [facility] CLASSIFIED ELSEWHERE 2020-06-09 12:00 ADVERSE EFFECT OF ANTINEOPLASTIC [facility] AND IMMUNOSUP DRUGS, INIT 2020-06-09 12:00 ENCOUNTER FOR ANTINEOPLASTIC [facility] CHEMOTHERAPY 2020-06-09 12:00 ENCOUNTER FOR ANTINEOPLASTIC [facility] IMMUNOTHERAPY 2020-06-09 12:00 ENCOUNTER FOR PALLIATIVE CARE [facility] 2020-06-09 12:00 MCC (CURRENT) USE OF [facility] OPIATE ANALGESIC 2020-06-09 12:00 OTHER M[facility] (CURRENT) DRUG [facility] THERAPY 2020-06-09 12:00 PERSONAL HISTORY OF MALIGNANT [facility] NEOPLASM OF LARGE INTESTINE 2020-06-09 12:00 PERSONAL HISTORY OF MALIGNANT [facility] NEOPLASM OF CERVIX UTERI 2020-06-09 12:00 PERSONAL HISTORY OF [facility] ANTINEOPLASTIC CHEMOTHERAPY 2020-06-10 08:30 OTHER SECONDARY NEUROENDOCRINE [facility] TUMORS 2020-06-10 08:30 MALIGNANT (PRIMARY) NEOPLASM, [facility] UNSPECIFIED 2020-06-10 08:30 OTHER SECONDARY THROMBOCYTOPENIA [facility] 2020-06-10 08:30 AGRANULOCYTOSIS SECONDARY TO [facility] CANCER CHEMOTHERAPY 2020-06-10 08:30 THYROTOXICOSIS, UNSP WITHOUT [facility] THYROTOXIC CRISIS OR STORM 2020-06-10 08:30 NEOPLASM RELATED PAIN (ACUTE) [facility] (CHRONIC) 2020-06-10 08:30 ESSENTIAL (PRIMARY) HYPERTENSION [facility] 2020-06-10 08:30 OTHER SPECIFIED NONINFLAMMATORY [facility] DISORDERS OF VAGINA 2020-06-10 08:30 FEVER PRESENTING WITH CONDITIONS [facility] CLASSIFIED ELSEWHERE 2020-06-10 08:30 ADVERSE EFFECT OF ANTINEOPLASTIC [facility] AND IMMUNOSUP DRUGS, INIT 2020-06-10 08:30 ENCOUNTER FOR ANTINEOPLASTIC [facility] CHEMOTHERAPY 2020-06-10 08:30 ENCOUNTER FOR ANTINEOPLASTIC [facility] IMMUNOTHERAPY 2020-06-10 08:30 ENCOUNTER FOR PALLIATIVE CARE [facility] 2020-06-10 08:30 MCC (CURRENT) USE OF [facility] OPIATE ANALGESIC 2020-06-10 08:30 OTHER HEAD LINEMAN (CURRENT) DRUG [facility] THERAPY 2020-06-10 08:30 PERSONAL HISTORY OF MALIGNANT [facility] NEOPLASM OF LARGE INTESTINE 2020-06-10 08:30 PERSONAL HISTORY OF MALIGNANT [facility] NEOPLASM OF CERVIX UTERI 2020-06-10 08:30 PERSONAL HISTORY OF [facility] ANTINEOPLASTIC CHEMOTHERAPY 2020-06-25 08:25 OTHER SECONDARY NEUROENDOCRINE [facility] TUMORS 2020-06-25 08:25 MALIGNANT (PRIMARY) NEOPLASM, [facility] UNSPECIFIED 2020-06-25 08:25 OTHER SECONDARY THROMBOCYTOPENIA [facility] 2020-06-25 08:25 AGRANULOCYTOSIS SECONDARY TO [facility] CANCER CHEMOTHERAPY 2020-06-25 08:25 THYROTOXICOSIS, UNSP WITHOUT [facility] THYROTOXIC CRISIS OR STORM 2020-06-25 08:25 NEOPLASM RELATED PAIN (ACUTE) [facility] (CHRONIC) 2020-06-25 08:25 ESSENTIAL (PRIMARY) HYPERTENSION [facility] 2020-06-25 08:25 OTHER SPECIFIED NONINFLAMMATORY [facility] DISORDERS OF VAGINA 2020-06-25 08:25 FEVER PRESENTING WITH CONDITIONS [facility] CLASSIFIED ELSEWHERE 2020-06-25 08:25 ADVERSE EFFECT OF ANTINEOPLASTIC [facility] AND IMMUNOSUP DRUGS, INIT 2020-06-25 08:25 ENCOUNTER FOR ANTINEOPLASTIC [facility] CHEMOTHERAPY 2020-06-25 08:25 ENCOUNTER FOR ANTINEOPLASTIC [facility] IMMUNOTHERAPY 2020-06-25 08:25 ENCOUNTER FOR PALLIATIVE CARE [facility] 2020-06-25 08:25 HEAD LINEMAN (CURRENT) USE OF [facility] OPIATE ANALGESIC 2020-06-25 08:25 OTHER HEAD LINEMAN (CURRENT) DRUG [facility] THERAPY 2020-06-25 08:25 PERSONAL HISTORY OF MALIGNANT [facility] NEOPLASM OF LARGE INTESTINE 2020-06-25 08:25 PERSONAL HISTORY OF MALIGNANT [facility] NEOPLASM OF CERVIX UTERI 2020-06-25 08:25 PERSONAL HISTORY OF [facility] ANTINEOPLASTIC CHEMOTHERAPY 2020-06-25 09:00 OTHER SECONDARY NEUROENDOCRINE [facility] TUMORS 2020-06-25 09:00 MALIGNANT (PRIMARY) NEOPLASM, [facility] UNSPECIFIED 2020-06-25 09:00 OTHER SECONDARY THROMBOCYTOPENIA [facility] 2020-06-25 09:00 AGRANULOCYTOSIS SECONDARY TO [facility] CANCER CHEMOTHERAPY 2020-06-25 09:00 THYROTOXICOSIS, UNSP WITHOUT [facility] THYROTOXIC CRISIS OR STORM 2020-06-25 09:00 NEOPLASM RELATED PAIN (ACUTE) [facility] (CHRONIC) 2020-06-25 09:00 ESSENTIAL (PRIMARY) HYPERTENSION [facility] 2020-06-25 09:00 OTHER SPECIFIED NONINFLAMMATORY [facility] DISORDERS OF VAGINA 2020-06-25 09:00 FEVER PRESENTING WITH CONDITIONS [facility] CLASSIFIED ELSEWHERE 2020-06-25 09:00 ADVERSE EFFECT OF ANTINEOPLASTIC [facility] AND IMMUNOSUP DRUGS, INIT 2020-06-25 09:00 ENCOUNTER FOR ANTINEOPLASTIC [facility] CHEMOTHERAPY 2020-06-25 09:00 ENCOUNTER FOR ANTINEOPLASTIC [facility] IMMUNOTHERAPY 2020-06-25 09:00 ENCOUNTER FOR PALLIATIVE CARE [facility] 2020-06-25 09:00 HEAD LINEMAN (CURRENT) USE OF [facility] OPIATE ANALGESIC 2020-06-25 09:00 OTHER [facility] (CURRENT) DRUG [facility] THERAPY 2020-06-25 09:00 PERSONAL HISTORY OF MALIGNANT [facility] NEOPLASM OF LARGE INTESTINE 2020-06-25 09:00 PERSONAL HISTORY OF MALIGNANT [facility] NEOPLASM OF CERVIX UTERI 2020-06-25 09:00 PERSONAL HISTORY OF [facility] ANTINEOPLASTIC CHEMOTHERAPY 2020-06-28 00:00:00 Other abnormal glucose [facility] 2020-06-28 00:00:00 Thrombocytopenia, unspecified [facility] 2020-06-28 00:00:00 Hyperglycemia, unspecified [facility] 2020-06-28 00:00:00 Thrombocytopenic disorder [facility] 2020-06-28 00:00:00 Hyperglycemia [facility] 2020-06-28 09:00 OTHER SECONDARY NEUROENDOCRINE [facility] TUMORS 2020-06-28 09:00 MALIGNANT (PRIMARY) NEOPLASM, [facility] UNSPECIFIED 2020-06-28 09:00 OTHER SECONDARY THROMBOCYTOPENIA [facility] 2020-06-28 09:00 AGRANULOCYTOSIS SECONDARY TO [facility] CANCER CHEMOTHERAPY 2020-06-28 09:00 THYROTOXICOSIS, UNSP WITHOUT [facility] THYROTOXIC CRISIS OR STORM 2020-06-28 09:00 NEOPLASM RELATED PAIN (ACUTE) [facility] (CHRONIC) 2020-06-28 09:00 ESSENTIAL (PRIMARY) HYPERTENSION [facility] 2020-06-28 09:00 OTHER SPECIFIED NONINFLAMMATORY [facility] DISORDERS OF VAGINA 2020-06-28 09:00 FEVER PRESENTING WITH CONDITIONS [facility] CLASSIFIED ELSEWHERE 2020-06-28 09:00 ADVERSE EFFECT OF ANTINEOPLASTIC [facility] AND IMMUNOSUP DRUGS, INIT 2020-06-28 09:00 ENCOUNTER FOR ANTINEOPLASTIC [facility] CHEMOTHERAPY 2020-06-28 09:00 ENCOUNTER FOR ANTINEOPLASTIC [facility] IMMUNOTHERAPY 2020-06-28 09:00 ENCOUNTER FOR PALLIATIVE CARE [facility] 2020-06-28 09:00 HEAD LINEMAN (CURRENT) USE OF [facility] OPIATE ANALGESIC 2020-06-28 09:00 OTHER [facility] (CURRENT) DRUG [facility] THERAPY 2020-06-28 09:00 PERSONAL HISTORY OF MALIGNANT [facility] NEOPLASM OF LARGE INTESTINE 2020-06-28 09:00 PERSONAL HISTORY OF MALIGNANT [facility] NEOPLASM OF CERVIX UTERI 2020-06-28 09:00 PERSONAL HISTORY OF [facility] ANTINEOPLASTIC CHEMOTHERAPY 2020-06-29 00:00:00 Diabetes mellitus without [facility] mention of complication, type II [facility] or unspecified type, uncontrolled 2020-06-29 00:00:00 Type 2 diabetes mellitus with [facility] hyperglycemia [facility] 2020-06-29 00:00:00 Type II diabetes mellitus [facility] uncontrolled [facility] 2020-06-29 09:00 OTHER SECONDARY NEUROENDOCRINE [facility] TUMORS 2020-06-29 09:00 MALIGNANT (PRIMARY) NEOPLASM, [facility] UNSPECIFIED 2020-06-29 09:00 OTHER SECONDARY THROMBOCYTOPENIA [facility] 2020-06-29 09:00 AGRANULOCYTOSIS SECONDARY TO [facility] CANCER CHEMOTHERAPY 2020-06-29 09:00 THYROTOXICOSIS, UNSP WITHOUT [facility] THYROTOXIC CRISIS OR STORM 2020-06-29 09:00 NEOPLASM RELATED PAIN (ACUTE) [facility] (CHRONIC) 2020-06-29 09:00 ESSENTIAL (PRIMARY) HYPERTENSION [facility] 2020-06-29 09:00 OTHER SPECIFIED NONINFLAMMATORY [facility] DISORDERS OF VAGINA 2020-06-29 09:00 FEVER PRESENTING WITH CONDITIONS [facility] CLASSIFIED ELSEWHERE 2020-06-29 09:00 ADVERSE EFFECT OF ANTINEOPLASTIC [facility] AND IMMUNOSUP DRUGS, INIT 2020-06-29 09:00 ENCOUNTER FOR ANTINEOPLASTIC [facility] CHEMOTHERAPY 2020-06-29 09:00 ENCOUNTER FOR ANTINEOPLASTIC [facility] IMMUNOTHERAPY 2020-06-29 09:00 ENCOUNTER FOR PALLIATIVE CARE [facility] 2020-06-29 09:00 MCC (CURRENT) USE OF [facility] OPIATE ANALGESIC 2020-06-29 09:00 OTHER M[facility] (CURRENT) DRUG [facility] THERAPY 2020-06-29 09:00 PERSONAL HISTORY OF MALIGNANT [facility] NEOPLASM OF LARGE INTESTINE 2020-06-29 09:00 PERSONAL HISTORY OF MALIGNANT [facility] NEOPLASM OF CERVIX UTERI 2020-06-29 09:00 PERSONAL HISTORY OF [facility] ANTINEOPLASTIC CHEMOTHERAPY Allergies date description facility Vicodin [facility] HYDROcodone [facility] morphine [facility] codeine [facility] ATORVASTATIN [facility] CYANOCOBALAMIN [facility] [place] OMEPRAZOLE [facility] [place] GLUCOSAMINE-CHONDROITIN [facility] MULTIVITAMINS [facility] NO KNOWN ENVIRONMENTAL ALLERGIES [facility] SULFA ANTIBIOTICS [facility] NO KNOWN ALLERGIES [facility] NO ALLERGY INFORMATION AVAILABLE [facility] SULFA (SULFONAMIDE ANTIBIOTICS) [facility] NO KNOWN ALLERGIES [facility]EX [facility] VECURONIUM [facility] ROCURONIUM [facility] M[facility]INE [facility] R[facility]ITIDINE [facility]CL [facility] GLUTEN [facility] LATEX [facility] MILK [facility] No Known Drug Allergies [facility] No known allergies [facility] ACETAMINOPHEN [facility] ADHESIVE \T[facility] TAPE [facility] AMIODARONE [facility] ATORVASTATIN [facility] BEE VENOM [facility] BROMPHENIRAMINE [facility] CEFACLOR [facility] CEPHALEXIN [facility] CIPROFLOXACIN [facility] CODEINE SULFATE [facility] CODEINE [facility] DOXYCYCLINE [facility] DRONEDARONE [facility] DULOXETINE [facility] FLECAINIDE [facility] FLUCONAZOLE [facility] HYDROCODONE [facility] IBUPROFEN [facility] [id number] [facility] LISINOPRIL [facility] MEPERIDINE [facility] MORPHINE SULFATE [facility] MORPHINE [facility] NIVOLUMAB [facility] SULFASALAZINE [facility] DEMEROL [facility] NA [id number] [facility] RANITIDINE [facility]CL [facility] NO KNOWN ENVIRONMENTAL ALLERGIES [facility] SULFA ANTIBIOTICS [facility] No Known [facility]erg[facility] No Known Allergies [facility] NO ALLERGY INFORMATION ON FILE [facility] ADHESIVE [facility] AMIODARONE [facility] AMLODIPINE [facility] ATORVASTAT[facility] BIRCH [facility] CAPSAICIN [facility] CEFTRIAXONE [facility] CODEINE [facility] CONTRAST MEDIUM [facility] HYDROCODONE BITARTRATE [facility] HYDROCODONE [facility] HYDROCODONE-ACETAMINOPHEN [facility] IBUPROFEN [facility] IODINE [facility] LISINOPRIL [facility] MORPHINE [facility] NIACIN [facility] NSAIDS (NON-STEROIDAL ANTI-INFLAMMATORY DRUG) [facility] [place] OAK [facility] OXYCODONE [facility] PNEUMOCOCCAL VACCINE [facility] POISON OAK EXTRACT [facility] PREDNISONE [facility] SIMVASTATIN [facility] TOLMETIN [facility] VARENICLINE [facility] NO KNOWN ALLERGIES [facility] No Known Medication Allergies [facility] NO ALLERGY INFORMATION AVAILABLE [facility] IODINE AND IODIDE CONTAINING PRODUCTS [facility] INSULINS [facility] PENICILLINS [facility] CEPHALOSPORINS [facility] SULFA (SULFONAMIDE ANTIBIOTICS) [facility] NO KNOWN ALLERGIES [facility] CASHEW [facility] MILK [facility] ALMOND EXTRACT [facility] SHELLFISH [facility] NIACIN [facility] SITAGLIPTIN [facility] CODEINE [facility] CODEINE PHOSPHATE [facility] HYDROCODONE [facility] OXYCODONE [facility] PENTAZOCINE LACTATE [facility] ASPIRIN [facility] SALICYLATES [facility] ACETAMINOPHEN [facility] NUT - UNSPECIFIED [facility] IBUPROFEN [facility] NAPROXEN SODIUM [facility] METHOTREXATE [facility] CEPHALEXIN [facility] CIPROFLOXACIN [facility] METRONIDAZOLE [facility] RANITIDINE HCL [facility] BENAZEPRIL [facility] PRAVASTATIN [facility] CLARITHROMYCIN [facility] METOPROLOL [facility] AMLODIPINE [facility] SUMATRIPTAN [facility] GABAPENTIN [facility] PROMETHAZINE [facility] [facility] FLE[facility] AMIODARONE [facility] METFORMIN [facility] MEPERIDINE [facility] PHENAZOPYRIDINE [facility] PEANUT [facility] ONION [facility] ATORVASTATIN [facility] LISINOPRIL [facility] BEE VENOM PROTEIN (HONEY BEE) [facility] FRUIT EXTRACTS [facility] IODINE [facility] DULOXETINE [facility] LATEX [facility] ROSUVASTATIN [facility] ERYTHROMYCIN [facility] FLAVORING AGENT (BULK) [facility] NITROFURANTOIN MONOHYD/M-CRYST [facility] MEPERIDINE (PF) [facility] No Known Drug Allergies [facility] Medications date description facility 2020-05-07 00:00[facility]00 [facility] 2020-05-07 00:00[facility]00 [facility] 2020-05-07 00:00:00 null [facility] 2020-05-07 00:00:00 null [facility] 2020-05-07 00:00:00 null [facility] 2020-05-07 00:00:00 null [facility] 2020-05-07 00:00:00 null [facility] 2020-05-07 00:00:00 null [facility] 2020-05-07 00:00:00 null [facility] 2020-05-07 00:00:00 null [facility] 2020-05-07 00:00:00 null [facility] 2020-05-07 00:00:00 null [facility] 2020-05-07 00:00:00 null [facility] 2020-05-07 00:00:00 null [facility] 2020-05-07 00:00:00 [facility] 2020-05-07 00:00:00 MORPHINE [facility]ULFATE [facility] 2020-05-07 00:00:00 PROCHLORPERAZINE [facility]ALEATE [facility] 2020-05-07 00:00:00 ONDANSETRON [facility] 2020-05-07 00:00:00 [facility]OD[facility] 2020-05-07 00:00:00 OLANZAPINE [facility] 2020-05-07 00:00:00 CEFUROXIME AXETIL [facility] 2020-05-07 00:00:00 [facility]ANSETRON [facility] 2020-05-07 00:00:00 OXYCODONE HCL [facility] 2020-05-07 00:00:00 LIDOCAINE-PRILOCAINE [facility] 2020-05-07 00:00:00 PROCHLORPERAZINE MALEATE [facility] 2020-05-07 00:00:00 CEFUROXIME AXETIL [facility] 2020-05-07 00:00:00 [facility]APINE [facility] 2020-05-07 00:00:00 [facility] 2020-06-28 00:00:00 [facility] 2020-06-28 00:00:00 [facility] 2020-06-28 00:00:00 [facility] 2020-06-28 00:00:00 null [facility] 2020-06-28 00:00:00 INSULIN REGULAR HUMAN [facility] 2020-06-28 00:00:00 INSULIN NPH HUMAN (ISOPHANE) [facility] 2020-06-28 00:00:00 INSULIN NPH HUMAN (ISOPHANE) [facility] 2020-06-28 00:00:00 INSULIN REGULAR HUMAN [facility] Procedures date description facility 2020-04-15 00:00:00 CHLAM, NEISSERIA, TRICH DNA [facility] date description facility 2020-04-15 00:00:00 BIOPSY OF CERVIX, SINGLE [facility] date description facility 2020-04-15 00:00:00 Vaginitis 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 [facility] III [facility] date description facility 2020-04-15 00:00:00 THIN PREP PAP with HPV 30+YRS [facility] OLD [facility] date description facility 2020-04-15 00:00:00 EMB PATHOLOGY LVL IV [facility] date description facility 2020-04-15 00:00:00 [facility] date description facility 2020-05-03 01:23 TRANSFUSE NONAUT RED BLOOD CELLS [facility] IN CENTRAL VEIN, PERC date description facility 2020-05-03 01:23 TRANSFUSE NONAUT PLATELETS IN [facility] CENTRAL VEIN, PERC Results Social History date description facility 2020-04-15 00:00:00 [facility] Social History date description facility 2020-04-15 00:00:00 [facility] date description facility [id number]
== END 2020-06-26 16:00 | disposition home or self-care (01) ==
LOC: ED 15:35 → ICU 16:28
PROVIDERS: ADMIT Specialist; ATTEND Specialist
DX: E09.65 Drug or chemical induced diabetes mellitus with hyperglycemia (principal); D69.59 Other secondary thrombocytopenia; T45.1X5A Adverse effect of antineoplastic and immunosuppressive drugs, initial encounter; Y92.531 Health care provider office as the place of occurrence of the external cause; C7A.8 Other malignant neuroendocrine tumors; C7B.8 Other secondary neuroendocrine tumors; E05.90 Thyrotoxicosis, unspecified without thyrotoxic crisis or storm; I10 Essential (primary) hypertension; N89.8 Other specified noninflammatory disorders of vagina; H54.7 Unspecified visual loss; Z79.899 Other long term (current) drug therapy
CPT/HCPCS: 0202U; 36415; 80048; 80053; 81003; 81025; 81599; 82009; 82803; 83690; 83735; 85025; 87150; 96365; 96366; 96375; 99284; 99285; A9270; G0378; J1815; 81001; 82947; 83036; 87086

== ENCOUNTER 2020-07-02 17:27 | Emergency (ER) | payer OTHER ==
[2020-07-02] MEDS ORDERED: cephALEXin 250 MG CAPSULE PO STA (19:16)
--- NOTE | 2020-07-02 19:19 | ED Physician Documentation ---
History of Present Illness - Stated complaint Stated Complaint: PORT IS RED - Chief complaint Chief Complaint: Wound - History obtained from History obtained from: Patient - History of Present Illness Timing: Today Pain level max: 3 Pain level now: 3 - Additonal information Additional information: Patient is a 49-year-old female with neuroendocrine tumor. She presents to the emergency department with redness to the port in her left upper chest. Concerned about infection. She also states she is supposed to be starting on ciprofloxacin for a E. coli UTI. No fevers. No chills. Nothing makes it better or worse. 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 - Past Surgical History Past Surgical History: No General: Colonoscopy, Other - Present Medications Home Medications: Ambulatory Orders Medication Instructions Recorded Confirmed methIMAzole [Methimazole] 5 mg PO DAILY 03/22/20 07/02/20 Ondansetron [Ondansetron Odt] 8 mg PO BID #30 tab.rapdis 04/12/20 07/02/20 Alcohol Antiseptic Pads [Alcohol 1 each QID #120 med..pad 06/26/20 07/02/20 Swabs] Blood Sugar Diagnostic [Glucometer 1 each QID #1 packet 06/26/20 07/02/20 Strips] Blood-Glucose Meter [Glucometer] 1 each PRN PRN #1 each 06/26/20 07/02/20 Insulin NPH Human [Humulin N] 10 unit SQ BID #2 vial 06/26/20 07/02/20 Insulin Regular Human [NovoLIN R] 5 unit SUBQ AC #3 ml 06/26/20 07/02/20 Lancets [Blood Lancets] 1 each QID #120 each 06/26/20 07/02/20 River, Disposable [Needle] 1 each QID #120 dis.needle 06/26/20 07/02/20 Syrge-Ndl,Ins 0.3 ml Half Shad 1 each QID #120 disp.syrin 06/26/20 07/02/20 [Insulin Syringe] Ciprofloxacin [Cipro] 500 mg PO BID 07/02/20 07/02/20 cephALEXin [Keflex] 500 mg PO Q6H #28 capsule 07/02/20 - Allergies Allergies/Adverse Reactions: Allergies Allergy/AdvReac Type Severity Reaction Status Date / Time No Known Drug Allergies Allergy Verified 07/02/20 17:38 - Social History Does the pt smoke?: No Smoking Status: Never smoker Does the pt drink ETOH?: Yes Does the pt have substance abuse?: No - Immunizations Immunizations are current?: No - POLST Patient has POLST: No PD ED PE NORMAL - Vitals Vital signs reviewed: Yes - General General: Alert and oriented X 3, No acute distress - HEENT HEENT: Moist mucous membranes - Neck Neck: Supple, no meningeal sign - Cardiac Cardiac: RRR, Strong equal pulses - Respiratory Respiratory: No respiratory distress, Clear bilaterally - Derm Derm: Warm and dry, Other (Port in the left upper chest. Mild erythema over the top of the port. Approximately quarter sized. No swelling. It is tender. No fluctuance.) - Neuro Neuro: Alert and oriented X 3 Results - Vitals Vitals: Vital Signs - 24 hr 07/02/20 07/02/20 07/02/20 17:31 18:34 19:26 Temperature 36.9 C 36.9 C Heart Rate 88 70 70 Respiratory 16 16 17 Rate Blood Pressure 126/81 H 126/83 H 104/82 H O2 Saturation 99 100 99 Oxygen O2 Source Room air PD MEDICAL DECISION MAKING - ED course Complexity details: reviewed old records, considered differential, d/w patient ED course: Patient with possible cellulitis over the port. She is supposed to be on antibiotics for an E. coli UTI. I checked the culture results and is pansensitive. We will change her to Keflex as this should cover any mild cellulitis as well as the UTI. Patient is well-appearing, nontoxic. Afebrile. No pyelonephritis. No sepsis. Patient counseled regarding signs and symptoms for which I believe and urgent re-evaluation would be necessary. Patient with good understanding of and agreement to plan and is comfortable going home at t his time This document was made in part using voice recognition software. While efforts are made to proofread this document, sound alike and grammatical errors may occur. Departure - Departure Disposition: 01 Home, Self Care Clinical Impression: UTI (urinary tract infection) Qualifiers: Urinary tract infection type: acute cystitis Hematuria presence: without hematuria Qualified Code(s): N30.00 - Acute cystitis without hematuria Cellulitis Qualifiers: Site of cellulitis: trunk Site of cellulitis of trunk: chest wall Qualified Code(s): L03.313 - Cellulitis of chest wall Condition: Good Instructions: ED Infec Skin Cellulitis, ED UTI Cystitis Female Follow-Up: Eris Hogan DO [Primary Care Provider] - Within 1 week Prescriptions: cephALEXin [Keflex] 500 mg PO Q6H #28 capsule Comments: We will change you to Keflex as this should better cover the skin jaycee as well as the urine. You do not need to take the ciprofloxacin at this time. Return if you worsen. This should improve within 24 hours Discharge Date/Time: 07/02/20 19:37
[2020-07-02 19:27] VITALS: BP 104/82
== END 2020-07-02 19:37 | disposition home or self-care (01) ==
LOC: ED 17:27
DX: L03.313 Cellulitis of chest wall (principal); N30.00 Acute cystitis without hematuria; B96.20 Unspecified Escherichia coli [E. coli] as the cause of diseases classified elsewhere; C7A.8 Other malignant neuroendocrine tumors; Z95.828 Presence of other vascular implants and grafts; I10 Essential (primary) hypertension; E11.9 Type 2 diabetes mellitus without complications; Z79.4 Long term (current) use of insulin
CPT/HCPCS: 99282; 99283; A9270

== ENCOUNTER 2020-07-06 11:44 | Outpatient (CLI) | payer OTHER ==
[~2020-07-06 11:44] MED LIST changes: +IOVERSOL 320 100 ML VIAL IVP ONE; +IOVERSOL 320 50 ML VIAL ONE; -ONDANSETRON 4 MG/2 ML VIAL IVP PRN
[2020-07-06] MEDS ORDERED: IOVERSOL 320 50 ML VIAL PO ONE (13:17)
[2020-07-06] MEDS ORDERED: IOVERSOL 320 100 ML VIAL IVP ONE (13:17)
--- NOTE | 2020-07-06 16:47 | CT Report ---
PROCEDURE: CHEST W INDICATIONS: MALIG NEUROENDOCRINE TUMORS CONTRAST: IV CONTRAST: Optiray 320 ml: 100 PO CONTRAST: Optiray 320 ml50 TECHNIQUE: After the administration of intravenous contrast, 5 mm thick sections acquired from the pulmonary api artur to the posterior costophrenic angles. 7 mm thick coronal MIP reformats were acquired. For radia tion dose reduction, the following was used: automated exposure control, adjustment of mA and/or kV according to patient size. COMPARISON: Same day CT abdomen and pelvis and 04/03/2020. CT chest 03/17/2020. FINDINGS: Image quality: Excellent. Lungs and pleura: Right lower lobe subpleural nodular opacity measuring 1.4 cm, (3/209), new compared to 04/03/2020. No pleural effusions or pneumothorax. Central and peripheral airways are patent and normal in caliber. Mediastinum: Left sided port with the catheter tip in the right atrium. Heart size is normal. No pe ricardial effusion. No mediastinal or hilar adenopathy by size criteria. Thoracic aorta and central pulmonary arteries are normal in size. Esophagus is normal in caliber. No hiatal hernia. Bones and chest wall: No suspicious bony lesions. No vertebral body compression fractures. No axil dipak or supraclavicular adenopathy by size criteria. Thyroid gland images a small calcified nodule i n the left lobe. Abdomen: Please see separately dictated same day CT abdomen and pelvis. IMPRESSION: 1. Nodular opacity at the right lower lobe measuring 1.4 cm. This is favored to represent round atele ctasis. Underlying pulmonary nodule cannot be excluded. Recommend attention on follow-up scan. 2. No convincing metastatic disease identified in the chest. No adenopathy. Reviewed by: Flip Chen MD on 07/06/2020 4:46 PM PST Approved by: Flip Chen MD on 07/06/2020 4:46 PM PST Station ID: [id number]
--- NOTE | 2020-07-06 17:23 | CT Report ---
PROCEDURE: Abdomen/Pelvis W INDICATIONS: MALIG NUEROENDORINE TUMORS CONTRAST: IV CONTRAST: Optiray 320 ml: 100 PO CONTRAST: Optiray 320 ml50 TECHNIQUE: After the administration of oral and intravenous contrast, 5 mm thick sections acquired from the diap hragms to the symphysis. 5 mm thick coronal and sagittal reformats were acquired. For radiation dos e reduction, the following was used: automated exposure control, adjustment of mA and/or kV accordin g to patient size. COMPARISON: Same day CT chest. CT abdomen and pelvis 04/03/2020, 03/17/2020. FINDINGS: Image quality: Excellent. ABDOMEN: Lung bases: Please see separate dictated same day CT chest. Solid organs: Liver and spleen are normal in size and enhancement. Gallbladder demonstrates punctat e gallstones. Biliary system is non dilated. Pancreas enhances normally. No adrenal nodules. Kidn eys demonstrate normal size and enhancement, without hydronephrosis. Peritoneum and bowel: Bowel loops demonstrate normal wall thickness and caliber. Normal appendix. N o free fluid or air. Nodes and vessels: Bulky retroperitoneal adenopathy is essentially resolved, (). Small pelvic edgardo ewall lymph nodes are no longer enlarged. Aorta and inferior vena cava are normal in size. Miscellaneous: No ventral hernias. Anasarca. PELVIS: Genitourinary: Mild stranding adjacent to the urinary bladder. Thickening in the region of the cervix is overall decreased compared to March 2020. There is now a small cyst measuring at 2.5 cm, () , previously 4.2 cm. Miscellaneous: No inguinal hernias or adenopathy. Bones: No suspicious bony lesions. No vertebral body compression fractures. IMPRESSION: 1. Bulky retroperitoneal adenopathy is essentially resolved. The small pelvic sidewall lymph nodes ar e no longer enlarged. 2. Small cyst in the region of the uterine cervix measuring 2.5 cm is substantially decreased in size . -Pelvic ultrasound may be also for further evaluation. 3. Mild stranding near the urinary bladder. This could be seen in cystitis. 4. Anasarca. 5. Gallstones. Reviewed by: Flip Chen MD on 07/06/2020 5:21 PM PST Approved by: Flip Chen MD on 07/06/2020 5:21 PM PST Station ID: [id number]
== END 2020-07-06 11:45 | disposition home or self-care (01) ==
LOC: DI 11:44
PROVIDERS: ATTEND Internal Medicine Hematology & Oncology
DX: C7A.1 Malignant poorly differentiated neuroendocrine tumors (principal); R60.1 Generalized edema; R91.8 Other nonspecific abnormal finding of lung field; K80.20 Calculus of gallbladder without cholecystitis without obstruction; N88.8 Other specified noninflammatory disorders of cervix uteri
CPT/HCPCS: 71260; 74177; Q9967

== ENCOUNTER 2020-08-04 08:03 | Outpatient (CLI) | payer OTHER ==
[2020-08-04 08:35] LABS: CALCIUM 9.9 mg/dL (8.5-10.3); CREATININE 1.1 mg/dL (0.4-1.0)
[2020-08-04 15:16] LABS: HEMOGLOBIN A1c% 7.9 % (4.27-6.07)
== END 2020-08-04 08:04 | disposition home or self-care (01) ==
LOC: LAB 08:03
DX: E34.9 Endocrine disorder, unspecified (principal); E03.9 Hypothyroidism, unspecified
CPT/HCPCS: 36415; 80048; 81599; 82670; 83036; 84443; 86341

== ENCOUNTER 2020-08-27 12:42 | Outpatient (CLI) | payer OTHER ==
--- NOTE | 2020-08-27 14:51 | Ultrasound Report ---
PROCEDURE: Duplex Ext Veins Left INDICATIONS: OCCLUSION OF VEIN TECHNIQUE: Real-time imaging, as well as color and pulse Doppler interrogation, were performed of the lower extr emity deep veins from the inguinal ligament to the popliteal fossa. COMPARISON: None. FINDINGS: There is filling defects within the distal left common femoral vein and proximal left profundus femor is vein and show partial compressibility. Rest of the deep veins are normally compressible, and free of intraluminal thrombus. Color and pulse Doppler demonstrate normal phasic intraluminal flow. Ther e is normal augmentation response to distal compression maneuver. IMPRESSION: 1. Suggestion of partial deep venous thrombosis involving distal left common femoral vein and proxima l left profundus femoris. 2. No evidence of DVT in visualized more distal deep veins of left lower extremity. Reviewed by: Shubham Lebron MD on 08/27/2020 2:50 PM PST Approved by: Shubham Lebron MD on 08/27/2020 2:50 PM PST Station ID: [id number]
== END 2020-08-27 12:43 | disposition home or self-care (01) ==
LOC: DI 12:42
PROVIDERS: ATTEND Obstetrics & Gynecology
DX: I82.412 Acute embolism and thrombosis of left femoral vein (principal); I82.422 Acute embolism and thrombosis of left iliac vein

== ENCOUNTER 2020-10-25 08:42 | Outpatient (CLI) | payer OTHER ==
[~2020-10-25 08:42] MED LIST changes: +IOPAMIDOL-300 100 ML VIAL ONE; +IOPAMIDOL-300 50 ML VIAL ONE; -IOVERSOL 320 100 ML VIAL IVP ONE; -IOVERSOL 320 50 ML VIAL ONE
[2020-10-25] MEDS ORDERED: IOPAMIDOL-300 50 ML VIAL PO ONE (10:06)
[2020-10-25] MEDS ORDERED: IOPAMIDOL-300 100 ML VIAL IVP ONE (10:06)
--- NOTE | 2020-10-25 15:27 | CT Report ---
PROCEDURE: Abdomen/Pelvis W INDICATIONS: NEUROENDOCRINE TUMOR SURVEILLANCE CONTRAST: IV CONTRAST: Isovue 300 ml: 100 PO CONTRAST: Isovue 300 ml50 TECHNIQUE: After the administration of intravenous and oral contrast, 5 mm thick sections acquired from the diap hragms to the symphysis. 5 mm thick coronal and sagittal reformats were acquired. For radiation dos e reduction, the following was used: automated exposure control, adjustment of mA and/or kV accordin g to patient size. COMPARISON: CT abdomen pelvis 07/06/2020, 04/03/2020, 03/17/2020. CT chest 07/06/2020 FINDINGS: Image quality: Excellent. ABDOMEN: Lung bases: A pleural-based nodule posteriorly in the right lower lobe measuring up to 1.0 cm with ad jacent linear opacities appear slightly decreased in size compared to the prior study. The findings a re again suggestive of round atelectasis. Heart size is within normal limits with mild left atrial en largement. Solid organs: Evaluation of the liver demonstrates no focal hepatic lesions. There is a small depend ent calcified gallstone in the gallbladder fundus. No definite wall thickening or pericholecystic flu id. Biliary system is non dilated. The spleen is normal in size. Pancreas enhances normally without peripancreatic fat stranding or fluid collections. No adrenal nodules. Kidneys demonstrate no hydro nephrosis. Peritoneum and bowel: Bowel loops demonstrate normal wall thickness and caliber. There is colonic d iverticulosis without acute diverticulitis. A small amount of nonspecific free fluid is demonstrated within the pelvis. Nodes and vessels: There are a few enlarged retroperitoneal lymph nodes which demonstrate interval i ncrease in size compared to the prior study. A payroll representative left para-aortic node on series 3 image 46 which is up to 1.8 cm compared to approximately 1.0 cm previously. Indistinct retroperitoneal nod al soft tissue is redemonstrated consistent with treated disease. No definite new mesenteric mass zhane ntified. There are scattered subcentimeter nonspecific mesenteric lymph nodes measuring up to 0.8 cm in short axis in the right abdomen on series 3 image 50. Aorta and inferior vena cava are normal in s ize. Miscellaneous: No ventral hernias. PELVIS: Genitourinary: Bladder wall thickness is normal. Miscellaneous: Mildly enlarged left pelvic sidewall lymph node measures up to 1.0 cm in short axis, slightly decreased in size from 1.2 cm on the prior exam. No inguinal hernias or adenopathy. Bones: No suspicious bony lesions. No vertebral body compression fractures. IMPRESSION: 1. Slight interval increase in size of a few left para-aortic retroperitoneal lymph nodes suspicious for recurrent or mild progression of metastatic disease. 2. However, there is progressive decrease in size of previously visualized enlarged left pelvic sidew all lymph node likely reflecting progressive response to therapy. 3. Ill-defined retroperitoneal flor soft tissue consistent with treated disease redemonstrated. 4. Cholelithiasis without CT evidence of cholecystitis. Reviewed by: Prashanth Gant MD on 10/25/2020 3:25 PM PDT Approved by: Prashanth Gant MD on 10/25/2020 3:25 PM PDT Station ID: [id number]
--- NOTE | 2020-10-25 15:56 | CT Report ---
PROCEDURE: CHEST W INDICATIONS: NEUROENDOCRINE TUMOR SURVEILLANCE CONTRAST: IV CONTRAST: Isovue 300 ml: 100 PO CONTRAST: Isovue 300 ml50 TECHNIQUE: After the administration of intravenous contrast, 5 mm thick sections acquired from the pulmonary api artur to the posterior costophrenic angles. 7 mm thick coronal MIP reformats were acquired. For radia tion dose reduction, the following was used: automated exposure control, adjustment of mA and/or kV according to patient size. COMPARISON: Prior CT abdomen/pelvis 04/03/2020 and also 03/17/2020 reviewed, and also CT chest 021 reviewed. FINDINGS: Image quality: Excellent. Lungs and pleura: No acute air space opacities. An area of prior concern at the posterolateral righ t lower lobe inferiorly measuring 1.4 cm has improved, measuring now 8 mm. A prior inflammatory proce ss is the potential cause. No pleural effusions or pneumothorax. Central and peripheral airways are patent and normal in caliber. Mediastinum: Heart size is normal. No pericardial effusion. No mediastinal or hilar adenopathy by size criteria. Thoracic aorta and central pulmonary arteries are normal in size. Esophagus is starr l in caliber. No hiatal hernia. Port-A-Cath from a left-sided approach enters the atrial caval junc tion. Bones and chest wall: No suspicious bony lesions. No vertebral body compression fractures. No axil dipak or supraclavicular adenopathy by size criteria. Thyroid gland appears normal where well seen. Abdomen: Visualized upper abdominal solid organs appear normal. Upper abdominal bowel loops are nor mal in caliber. IMPRESSION: Interval improvement in a deep posterior lateral right lower lobe peripheral lung radiodensity, which has a craniocaudad linear morphology and where largest has diminished in size from 1.4 cm to 8 mm cu rrently. This likely represents resolving scarring from prior inflammatory event. Through the lung parenchyma no metastatic disease from reported neuroendocrine tumor is found. No ost eoblastic bone lesion is identified. No adenopathy is found. Within the visualized upper abdomen no l esion is seen. Port-A-Cath in normal position from left-sided approach extending into the atrial caval junction. Reviewed by: Domenic Pena MD on 10/25/2020 3:54 PM PDT Approved by: Domenic Pena MD on 10/25/2020 3:54 PM PDT Station ID: [id number]
== END 2020-10-25 08:43 | disposition home or self-care (01) ==
LOC: DI 08:42
PROVIDERS: ATTEND Physician Assistant
DX: C7B.8 Other secondary neuroendocrine tumors (principal); R59.0 Localized enlarged lymph nodes; K80.20 Calculus of gallbladder without cholecystitis without obstruction; R91.8 Other nonspecific abnormal finding of lung field
CPT/HCPCS: 71260; 74177; Q9967

== ENCOUNTER 2021-01-08 07:39 | Outpatient (CLI) | payer OTHER ==
[2021-01-08] MEDS ORDERED: IOPAMIDOL-300 100 ML VIAL ONE (07:53)
[2021-01-08] MEDS ORDERED: IOVERSOL 320 50 ML VIAL ONE (07:53)
[2021-01-08] MEDS ORDERED: IOPAMIDOL-300 100 ML VIAL IVP ONE (09:13)
[2021-01-08] MEDS ORDERED: IOVERSOL 320 50 ML VIAL PO ONE (09:14)
--- NOTE | 2021-01-08 11:35 | CT Report ---
PROCEDURE: Abdomen/Pelvis W INDICATIONS: METASTATIC HIGH GRADE NET CONTRAST: IV CONTRAST: Isovue 300 ml: 100 PO CONTRAST: Optiray 320 ml50 TECHNIQUE: After the administration of oral and IV contrast, 5 mm thick sections acquired from the diaphragms to the symphysis. 5 mm thick coronal and sagittal reformats were acquired. For radiation dose reducti on, the following was used: automated exposure control, adjustment of mA and/or kV according to yulissa ent size. COMPARISON: 10/25/2020, 04/03/2020, 03/17/2020. Correlation is also made with the [facility] chest CT, . FINDINGS: Image quality: Excellent. ABDOMEN: Lung bases: Within the right posterior costophrenic angle, there is again seen a stable focus of pleu ral thickening, as on series 4 image 17. This is not significantly changed compared to the prior exam ination. Heart size is normal. Solid organs: Liver and spleen are normal in size and enhancement. Gallbladder demonstrates gallsto bud within its lumen Biliary system is non dilated. Pancreas enhances normally. No adrenal nodules . Kidneys demonstrate normal size and enhancement, without hydronephrosis. Peritoneum and bowel: Bowel loops demonstrate normal wall thickness and caliber. No free fluid or a ir. Minimal sigmoid diverticulosis is seen, without findings of active diverticulitis. A mild to mod erate amount of stool can be seen within the colon. Nodes and vessels: Within the left periaortic region, there is a mildly prominent lymph node seen, as on series 3 image 40 measuring 13 x 9 mm. This is clearly decreased in size compared to the prior CT . Nonenlarged mesenteric lymph nodes are seen, which have decreased in size compared to the prior abebe dy. Aorta and inferior vena cava are normal in size. Miscellaneous: No ventral hernias. PELVIS: Genitourinary: Bladder wall thickness is normal. This patient is status post hysterectomy. No adnex al masses can be seen. Miscellaneous: No inguinal hernias or adenopathy. Bones: No suspicious bony lesions. No vertebral body compression fractures. Mild dextroconvex scol iotic curvature is seen. IMPRESSION: Interval decreased size of the previously seen enlarged left para-aortic lymph node. Decreased size of mesenteric lymph nodes, which are now not considered to be enlarged. The previously described left pelvic sidewall lymph node is no longer definitely seen. There is a stable focus of nodular thickening seen involving the right posterior costophrenic angle. There is a mild to moderate amount of stool seen within the colon. Please correlate with clinical con stipation. Incidental note is made of: Gallstones Hysterectomy Minimal sigmoid diverticulosis, without active diverticulitis Dextroconvex scoliotic curvature Reviewed by: Roberto Díaz MD on 01/08/2021 10:33 AM ALESSANDRA Approved by: Roberto Díaz MD on 01/08/2021 10:33 AM AKMARKEL Station ID: [id number]
--- NOTE | 2021-01-08 11:39 | CT Report ---
PROCEDURE: CHEST W INDICATIONS: METASTATIC HIGH GRADE NET CONTRAST: IV CONTRAST: Isovue 300 ml: 100 PO CONTRAST: Optiray 320 ml50 TECHNIQUE: After the administration of intravenous contrast, images were acquired from the pulmonary apices to t he posterior costophrenic angles. Multiplanar MIP reformats were acquired. For radiation dose reduc tion, the following was used: automated exposure control, adjustment of mA and/or kV according to pa tient size. COMPARISON: 10/25/2020 07/06/2020, 03/17/2020. Correlation is also made with the accompanying abdomen a nd pelvis CT, 01/08/2021. FINDINGS: Image quality: Excellent. Lungs and pleura: Irregular soft tissue opacity is seen within the right costophrenic sulcus, which m easures up to an 8 mm and is similar to the prior CT examination. No new pulmonary parenchymal abnorm alities are seen. No pleural effusions or pneumothorax. Central and peripheral airways are patent an d normal in caliber. Mediastinum: Heart size is normal. No pericardial effusion. No mediastinal or hilar adenopathy by size criteria. Thoracic aorta and central pulmonary arteries are normal in size. Esophagus is starr l in caliber. No hiatal hernia. Bones and chest wall: A left-sided chest port is seen, with the tip within the inferior aspect of th e superior vena cava. No suspicious bony lesions. No vertebral body compression fractures. No axill jason or supraclavicular adenopathy by size criteria. The thyroid is small in size.. Abdomen: Gallstones can be seen within the gallbladder lumen. Diffuse fatty liver infiltration can b e seen. The visualized portions of the upper abdominal structures are otherwise within normal limit s. IMPRESSION: Stable nodular thickening is seen of the right costophrenic sulcus. No new pulmonary parenchymal abnormality is seen. No enlarged lymph nodes are detected. Incidental note is made of: Stable left-sided chest port Gallstones Fatty liver infiltration Reviewed by: Roberto Díaz MD on 01/08/2021 10:37 AM ALESSANDRA Approved by: Roberto Díaz MD on 01/08/2021 10:37 AM AKMARKEL Station ID: [id number]
== END 2021-01-08 07:40 | disposition home or self-care (01) ==
LOC: DI 07:39
PROVIDERS: ATTEND Internal Medicine Hematology & Oncology
DX: C7A.00 Malignant carcinoid tumor of unspecified site (principal)
CPT/HCPCS: 71260; 74177; Q9967

== ENCOUNTER 2021-04-01 08:32 | Outpatient (CLI) | payer OTHER ==
[2021-04-01] MEDS ORDERED: IOVERSOL 320 100 ML VIAL IVP ONE ×2 (09:12→14:33)
[2021-04-01] MEDS ORDERED: IOVERSOL 320 50 ML VIAL ONE (09:13)
--- NOTE | 2021-04-01 11:32 | CT Report ---
PROCEDURE: Abdomen/Pelvis W INDICATIONS: NEUROENDOCRINE CA CONTRAST: IV CONTRAST: Optiray 320 ml: 100 PO CONTRAST: Optiray 320 ml50 TECHNIQUE: After the administration of IV and oral contrast, 5 mm thick sections acquired from the diaphragms to the symphysis. 5 mm thick coronal and sagittal reformats were acquired. For radiation dose reducti on, the following was used: automated exposure control, adjustment of mA and/or kV according to yulissa ent size. COMPARISON: January 08, 2021. FINDINGS: Inferior chest: Redemonstrated minimal left basilar atelectasis/scarring. No cardiomegaly or pericar dial effusion. Gallbladder: No gallbladder wall thickening or pericholecystic fluid. Redemonstrated cholelithiasis. Biliary tree: No intra-or extrahepatic biliary ductal dilatation. Liver: The liver demonstrates normal enhancement, size, and contour. Spleen: Normal enhancement, size and morphology is seen. Pancreas: Normal morphology without masses or inflammatory changes. Adrenals: Normal size without masses. Kidneys/ureters: Normal size and morphology. No solid masses or hydronephrosis. Vasculature: No evidence of aneurysm or other significant vascular pathology. Lymphatic system: Persistent left periaortic lymph nodes, unchanged. Reference node: April 01, 2021: 1.8 x 1.3 cm; January 08, 2021: 2 x 1.4 cm; GI/mesentery: No evidence of intestinal obstruction. Normal appendix. Peritoneum/Retroperitoneum: No free intraperitoneal gas or large collection. Urinary bladder: The urinary bladder is distended with a smooth thin wall. Pelvic organs: The uterus appears to be surgically absent. Bones/soft tissues: No significant abnormality. IMPRESSION: 1.No significant interval change. Reviewed by: Prince De Oliveira MD on 04/01/2021 11:30 AM PDT Approved by: Prince De Oliveira MD on 04/01/2021 11:30 AM PDT Station ID: [id number]
--- NOTE | 2021-04-01 13:31 | CT Report ---
PROCEDURE: CHEST W INDICATIONS: NEUROENDOCRINE CA CONTRAST: IV CONTRAST: Optiray 320 ml: 100 PO CONTRAST: Optiray 320 ml50 TECHNIQUE: After the administration of intravenous contrast, 1 mm axial images were acquired from the pulmonary apices through the posterior costophrenic angles. Axial 5 mm soft tissue kernel reconstructions were performed as well as 8 mm axial MIP and coronal and sagittal 5 mm reformations. For radiation dose reduction, the following was used: automated exposure control, adjustment of mA and/or kV according to patient size. COMPARISON: Chest CT dated 01/08/2021 FINDINGS: Image quality: Excellent. Lungs and pleura: No acute air space opacities. Mild nodular scarring within the right posterior mike g base is present, as before. No pleural effusions or pneumothorax. Central and peripheral airways are patent and normal in caliber. Mediastinum: Heart size is normal. No pericardial effusion. No mediastinal or hilar adenopathy by size criteria. Thoracic aorta and central pulmonary arteries are normal in size. Esophagus is starr l in caliber. No hiatal hernia. Bones and chest wall: Left chest wall mgean catheter, tip of which is at the cavoatrial junction. No suspicious bony lesions. No vertebral body compression fractures. No axillary or supraclavicular a denopathy by size criteria. The thyroid is normal in size and there are no incidental findings.. Abdomen: Visualized upper abdominal solid organs appear normal. Upper abdominal bowel loops are nor mal in caliber. IMPRESSION: 1. Stable right lung base scarring. 2. No evidence of malignancy. CLINICAL RECOMMENDATION STATEMENTS: In patients <35 years with an ITN detected on CT, MRI, or extrathyroidal ultrasound, the Committee re commends further evaluation with dedicated thyroid ultrasound if the nodule is "e1 cm and has no susp icious imaging features, and if the patient has normal life expectancy. In patients "e35 years with an ITN detected on CT, MRI, or extrathyroidal ultrasound, the Committee r ecommends further evaluation with dedicated thyroid ultrasound if the nodule is "e1.5 cm and has no s uspicious imaging features, and if the patient has normal life expectancy. (ACR, 2014) Reviewed by: Phillip Shanks MD on 04/01/2021 1:30 PM PDT Approved by: Phillip Shanks MD on 04/01/2021 1:30 PM PDT Station ID: [id number]
[2021-04-01] MEDS ORDERED: IOVERSOL 320 50 ML VIAL PO ONE (14:34)
== END 2021-04-01 08:33 | disposition home or self-care (01) ==
LOC: DI 08:32
PROVIDERS: ATTEND Internal Medicine Hematology & Oncology
DX: D3A.8 Other benign neuroendocrine tumors (principal); J98.4 Other disorders of lung
CPT/HCPCS: 71260; 74177; Q9967

== ENCOUNTER 2021-08-02 11:00 | Outpatient (CLI) | payer OTHER ==
--- NOTE | 2021-08-02 16:05 | CONSULTATION NOTE ---
Palliative Care Consultation - Referral Referring Provider: Dr. 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 Where she underwent a CT scan showing a lesion on her vertebrae, significant lymphadenopathy creating a mass in her abdomen, which was the source of her impaired venous return. The mass was biopsied, and revealed metastatic neuroendocrine carcinoma. She was initiated on carbo/etoposide/atezolizumab and finished 4 cycles completed 06/25/2020. She then went on on maintenance atezolizumab every three weeks. She had persistent cervical/uterine mass and vaginal drainage so received a total hysterectomy and BSO on 08/30/2020. She is continued on her maintenance treatment, and has had stable disease on her CT CAP, until this last scan that did show a left periaortic lymph node enlargement concern for progressive disease. She has just had a biopsy last Sunday, and is awaiting results. 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 She also has known hypothyroidism as a side effect of her immunotherapy, and is on Xarelto for a distal left common femoral vein nonocclusion no DVT found on an MRI 09/05. Patient is meeting with palliative care related to some of her goals regarding living with serious illness. She has in the past had cervical cancer at a young age for which she underwent treatment. She also was diagnosed with early stage colon cancer in 1998, with a polypectomy and chemotherapy.She is reflective on her journeys with cancer in the past, does recognize the seriousness of her illness, and does feel like she is at a place emotionally to be able to make some decisions around advance care planning. Medical/Surgical History - Past Medical History Cardiovascular: reports: Hypertension, Deep vein thrombosis Respiratory: reports: None Neuro: None Endocrine/Autoimmune: reports: Type 1 diabetes (autoimmune s/e Immunotherapy), HyPERthyroidism (hx), HyPOthyroidism (now hypo related to immune therapy S/E) GI: reports: Chronic constipation MUSEUM EXHIBIT DESIGNER: reports: Other (hx of cervical CA) : reports: None HEENT: reports: Chronic vision loss Psych: reports: None Musculoskeletal: reports: Fatigue Derm: reports: Other (rash s/e of immunotherapy) MRSA Hx?: No - Past Surgical History General: reports: Colonoscopy, Other (portacath placement) /MUSEUM EXHIBIT DESIGNER: reports: Hysterectomy, Oophrectomy - Substance History Use: Uses substance without health or social issues: NONE Social History - Living Situation Living arrangement: At home Living Situation: With spouse/s.o. 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 She has been for 11 years, she does identify a robust support group through her friends and family.Her ayaz plays a huge part in her coping and managing her anxiety. Family History - Family History Family History: Mother: Alive and Well (polyps), Father: , Cancer (colon CA at 41), Sister: Alive and Well Medications/Allergies - Medications Home Medications: Ambulatory Orders Medication Instructions Recorded Confirmed Ondansetron [Ondansetron Odt] 8 mg PO BID #30 tab.rapdis 04/12/20 08/02/21 Alcohol Antiseptic Pads [Alcohol 1 each QID #120 med..pad 06/26/20 08/02/21 Swabs] Blood Sugar Diagnostic [Glucometer 1 each QID #1 packet 06/26/20 08/02/21 Strips] Insulin NPH Human [Humulin N] 10 unit SQ BID #2 vial MDD managed 06/26/20 08/02/21 by endocrin Insulin Regular Human [NovoLIN R] 5 unit SUBQ AC #3 ml 06/26/20 08/02/21 Lancets [Blood Lancets] 1 each QID #120 each 06/26/20 08/02/21 [place], Disposable [Needle] 1 each QID #120 dis.needle 06/26/20 08/02/21 Syrge-Ndl,Ins 0.3 ml Half Shad 1 each QID #120 disp.syrin 06/26/20 08/02/21 [Insulin Syringe] Levothyroxine Sodium 50 mcg PO DAILY 07/16/20 08/02/21 [Levothyroxine] Rivaroxaban [Xarelto] 20 mg PO DAILY 11/05/20 08/02/21 Fluocinonide 0.05% Cream [Lidex 1 applic TOP BID 04/15/21 08/02/21 0.05% Cream] Senna [Senokot] 1 - 2 tab PO DAILY PRN 08/02/21 08/02/21 polyethylene glycoL 3350 [Miralax] 17 gm PO DAILY PRN 08/02/21 08/02/21 - Allergies Allergies/Adverse Reactions: Allergies Allergy/AdvReac Type Severity Reaction Status Date / Time No Known Drug Allergies Allergy Verified 01/21/21 08:35 Review of Systems - Constitutional Constitutional: reports: Fatigue (remains persistent), Diaphoresis (at night 3-4 x a week), Night sweats, Weight gain - Eyes Eyes: reports: Vision loss, Corrective lenses - Ears, Nose & Throat Ears, Nose & Throat: reports: Dental pain - Cardiovascular Cardiovascular: reports: Exertional dyspnea - Respiratory Respiratory: denies: Cough, SOB at rest - Gastrointestinal Gastrointestinal: reports: Constipation, Good appetite. denies: Abdominal pain, Nausea - Genitourinary Genitourinary: reports: Sexual dysfunction - Integumentary Integumentary: reports: Rash, Pruritis, Dryness - Psychiatric Psychiatric: denies: Depression, Anxiety - Endocrine Endocrine: reports: Hypothyroidism, Other (Diabetes type I; on continuous monitoring; hoping to get insulin pump; fluctuating high and lows) - Hematologic/Lymphatic Hematologic/Lymph: denies: Recurrent infections - All Other Systems All Other Systems: reports: Reviewed and negative Physical Exam - Physical Exam General Appearance: positive: No acute distress, Alert Eyes Bilateral: positive: Normal inspection ENT: positive: No signs of dehydration Neck: positive: Trachea midline Respiratory: positive: No respiratory distress Abdomen: positive: Soft Extremities: positive: No pedal edema Neurologic/Psychiatric: positive: Oriented x3, Mood/affect nml Palliative Care - POLST Patient has POLST: No POLST Status: Full Code Pain: No pain Tiredness/Fatigue: Mild (1-3) Drowsiness/Sedation: None Nausea: None Anorexia: None Dyspnea: None Depression: None Anxiety: None Feelings of wellbeing/Perceived Quality of Life: Excellent Sleep: Sleeps well, Variable sleep pattern (at times wtih night sweats) Constipation: Yes, Intermittent constipation Performance Status: Patient is physically fit, has some fatigue impacts activity tolerance. But is independent in her ADLs and able to drive and work. - Palliative Care Discussion: Palliative care discussion included patient's reflection on her journey, she does understand she has an incurable cancer. She had slight progression on her last CT which included a biopsy last Sunday. She is curious and wanting to explore advanced care planning, advanced care planning documents, and the role of palliative care. She did lose her brother 6 years ago to cancer, is reflective on his dying experience. She does feel like she has good emotional support, this has been stressful on her , and patient has continued hopefulness in the context of her ayaz. 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 Patient presenting with recent concern for progressive disease, awaiting outcome of biopsy. She is currently on maintenance atezolizumab, presents with low symptom burden, most significant quality of life issue is her diabetes type 1. Palliative care meeting with patient for symptom management, as well as advanced care planning, and anticipatory guidance Recommendations/Counseling Done: 1. Constipation. This is most likely multifactorial, counseling provided regarding bowel program with recommendation of introduction of senna 8.6 mg tabs for more gentle regular bowel movements, with combination of MiraLAX for softening. 2. Anxiety. Patient with pending results from biopsy, able to identify supportive coping mechanisms, relies on her ayaz which is supportive for her. Patient with identified support network, will continue to monitor. Patient does well with information, palliative care to provide ongoing anticipatory guidance. 3. Advanced care planning. Counseling provided regarding advance care planning process, documents, continuum of care. Patient identifies would be difficult for her to be the durable power of medical trust and estates attorney, discussed the role, she does have some friends she has approached, most important in conversation is to discuss values regarding wishes around medical decisions about end of life, quality of life, and what is most important to her. Provided different forms, including discussed the role of the POLST. Will meet with patient again after her meeting with oncology to continue to move forward on advanced care planning documents and goals 75 minutes Review of records, labs, scans, oncology notes counseling face-to-fa ce regarding advance care planning, anticipatory guidance, palliative care role, and building rapport.
== END 2021-08-02 11:01 | disposition home or self-care (01) ==
LOC: PC 11:00
PROVIDERS: ATTEND Nurse Practitioner Adult Health
DX: Z51.5 Encounter for palliative care (principal); E10.69 Type 1 diabetes mellitus with other specified complication; K59.00 Constipation, unspecified; F41.9 Anxiety disorder, unspecified; C7A.8 Other malignant neuroendocrine tumors; C7B.8 Other secondary neuroendocrine tumors; E03.2 Hypothyroidism due to medicaments and other exogenous substances; T45.1X5A Adverse effect of antineoplastic and immunosuppressive drugs, initial encounter; Z79.4 Long term (current) use of insulin; Z79.01 Long term (current) use of anticoagulants; Z79.899 Other long term (current) drug therapy; Z86.718 Personal history of other venous thrombosis and embolism; Z85.41 Personal history of malignant neoplasm of cervix uteri; Z85.038 Personal history of other malignant neoplasm of large intestine; Z92.21 Personal history of antineoplastic chemotherapy
CPT/HCPCS: 99205

== ENCOUNTER 2021-08-30 09:24 | Outpatient (CLI) | payer OTHER ==
--- NOTE | 2021-08-30 15:13 | CONSULTATION NOTE ---
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 She was originally diagnosed in the summer 2019, and has received treatment with noted complete response 06/2020, was on maintenance 8 to atelum every 3 weeks. She saw Gabriela Rome 09/05 for foul-smelling vaginal discharge, and underwent a ALEX/BSO for a large mass centered in the cervix and lower uterus, that time found pelvic adenopathy as well. She resumed her to atezolizumab every 3 weeks, had developed a maculopapular skin rash, and most recently on 07/08/2021 showed enlargement of the left Periaortic lymph node 1.8-3 point see below centimeters, which did biopsy positive showing recurrence of her high-grade neuroendocrine carcinoma.She had been considered disease-free for more than 12 months since last chemotherapy with [place] combination, and will be receiving carboplatinum/etoposide with 3-day schedule every 3 weeks, she is no longer going to receive her immunotherapy. Her other significant issue is type 1 diabetes immune related, she is awaiting insulin pump, continues to have fluctu ating and poorly controlled blood sugars which have caused her significant distress as far as quality of life. Today the rash does appear to have exacerbated, she has large plaques, significant discomfort itching from her ankles all the way up to her mid thigh her arms, and across her thoracic area. She has used some hydroxyzine for the itching, but does not like it is sedating. She will be receiving dexamethasone today, suspect this will help, though most likely will make her sugars more volatile. Patient has been on this regimen before, we did review antiemetics, these all need to be renewed as she did not receive an appointment with oncology PA. She denies any pain, she is somewhat anxious about her pending treatment, last time she had significant difficulty with anorexia, weight loss, now she presents with mostly persistent fatigue. She does understand the seriousness of her illness, and that her treatment is palliative in nature. Past Medical History: Hypertension, DVT, type 1 diabetes, hypothyroidism, chronic constipation improved, history of cervical CA, chronic vision loss, fatigue, rash secondary to immunotherapy Social History - Living Situation Living arrangement: At home Living Situation: With spouse/s.o. 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 She has been for 11 years, she has a robust support group from her friends and family, her ayaz plays a huge part in her coping and managing her anxiety. She is very close to her sisters, she is hopeful to be able to tr cyndy as much as possible. Medications/Allergies - Medications Home Medications: Ambulatory Orders Medication Instructions Recorded Confirmed Insulin NPH Human [Humulin N] 10 unit SQ BID #2 vial MDD getting 06/26/20 08/31/21 insulin pump Insulin Regular Human [NovoLIN R] 5 unit SUBQ AC #3 ml 06/26/20 08/31/21 Lancets [Blood Lancets] 1 each QID #120 each 06/26/20 08/31/21 [place], Disposable [Needle] 1 each QID #120 dis.needle 06/26/20 08/31/21 Syrge-Ndl,Ins 0.3 ml Half Shad 1 each QID #120 disp.syrin 06/26/20 08/31/21 [Insulin Syringe] Levothyroxine Sodium 50 mcg PO DAILY 07/16/20 08/31/21 [Levothyroxine] Rivaroxaban [Xarelto] 20 mg PO DAILY 11/05/20 08/31/21 Fluocinonide 0.05% Cream [Lidex 1 applic TOP BID 04/15/21 08/31/21 0.05% Cream] Senna [Senokot] 1 - 2 tab PO DAILY PRN 08/02/21 08/31/21 polyethylene glycoL 3350 [Miralax] 17 gm PO DAILY PRN 08/02/21 08/31/21 LORazepam [Ativan] 0.5 mg PO Q8HR PRN 08/31/21 08/31/21 Ondansetron [Ondansetron Odt] 4 mg PO Q6HR PRN 08/31/21 08/31/21 Prochlorperazine Maleate 10 mg PO Q6HR PRN 08/31/21 08/31/21 hydrOXYzine HCL [Hydroxyzine HCl] 25 mg PO Q6HR PRN 08/31/21 08/31/21 predniSONE [Deltasone] 10 mg PO DAILY MDD titrate to rash 08/31/21 08/31/21 - Allergies Allergies/Adverse Reactions: Allergies Allergy/AdvReac Type Severity Reaction Status Date / Time No Known Drug Allergies Allergy Verified 01/21/21 08:35 Review of Systems - Constitutional Constitutional: reports: Fatigue (remains persistent), Diaphoresis (at night 3-4 x a week), Night sweats, Weight gain - Eyes Eyes: reports: Vision loss, Corrective lenses - Cardiovascular Cardiovascular: reports: Exertional dyspnea - Gastrointestinal Gastrointestinal: reports: Good appetite. denies: Abdominal pain, Constipation (improved), Nausea - Musculoskeletal Musculoskeletal: reports: Stiffness - Integumentary Integumentary: reports: Rash (worsening), Pruritis, Dryness - Psychiatric Psychiatric: reports: Depression, Anxiety - Endocrine Endocrine: reports: Hypothyroidism, Other (Diabetes type I; on continuous monitoring; hoping to get insulin pump; fluctuating high and lows) - All Other Systems All Other Systems: reports: Reviewed and negative Physical Exam - Vital Signs Temperature: 36.3 C Pulse Rate: 62 Respiratory Rate: 18 Blood Pressure: 163/84 - Physical Exam General Appearance: positive: No acute distress, Alert Eyes Bilateral: positive: Normal inspection ENT: positive: No signs of dehydration Neck: positive: Trachea midline Respiratory: positive: No respiratory distress Abdomen: positive: Soft Skin: positive: Rash (bright red/several areas of raised plaques LE up to thighs/arms; reports across trunck) Extremities: positive: No pedal edema Neurologic/Psychiatric: positive: Oriented x3, Mood/affect nml Palliative Care - POLST Patient has POLST: No POLST Status: Full Code Pain: No pain Tiredness/Fatigue: Severe (7-10) Nausea: Mild (1-3) Anorexia: Mild (1-3) Dyspnea: None Depression: None Anxiety: Moderate (4-6) (regarding SE of new round of treatment) Feelings of wellbeing/Perceived Quality of Life: Excellent, Acceptable, No change Sleep: Other (slept poorly last night with pruritis) Constipation: Yes, Managed (doing better with addition of senna) Performance Status: Patient with fatigue, does have limited activity tolerance. She is able to man age her ADLs, she is driving herself. Would like to be more active and back to her previous level of functioning. - Palliative Care Discussion: Patient does understand the seriousness of her illness, goal is to retry [place] based therapy, with hope to create a "remission" again, though does recognize each time and duration is most likely going to be shorter. She feels she understands what oncology was saying regarding this. She did have a retreat away with her sisters, was able to review all the end-of-life planning documents, had many conversations, has identified who she would like is her DPOA's as does not feel this would fall to her easily. We discussed as none of them quite fit, added to encouraged to make a valued statement of what is most important to her, she has had the important conversations, the DPOA since is not her 's most important, she reports she will get this completed. We did discuss patient's coping patterns, fluctuating mood, response of people around there, and ways palliative care can provide support. 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 She does present with progressive disease, and is restarting her carbo [place] etoposide treatment. She continues to have fluctuating blood sugars in the context of her diabetes type 1, is to get a insulin pump next week is hoping for a smoother weight to be able to manage this. Palliative care continue to provide support for symptom management, as well as Rene care planning and anticipatory guidance. Recommendations/Counseling Done: 1. Rash secondary to immunotherapy. Did reach out to oncology, will go ahead and initiate prednisone 10 mg daily, and titrate accordingly to response and balancing with blood sugars. Suspect her dexamethasone will provide some improvement. 2. Constipation. This is most likely multifactorial, she is doing better with initiation of senna combined with MiraLAX, does feel like she is doing well with this. 3. Anxiety. Patient is anxious pending her side effect experience last time, as far as not able to eat, and though it was improvement overall secondary to her pain is wondering her experience this round. Patient did not choose to get chemotherapy teaching, did review antiemetics and ordered refills as it had been a long period of time. Did order lorazepam 0.5 mg every 8 hours if patient gets too anxious or needs it for sleep as well as part of her n/v tool box. 4. 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 Patient to initiate treatment today, counseling provided to normalize patient's current grief and loss response as well as anxiety. Patient does understand the implications of recurrent disease, is hoping for the best, and will continue to work with both oncology and palliative care regarding quality of life issues and side effects. 5. Advanced care planning. Revisited advanced care planning documents, DPOA, she has had conversations with both her sisters and DPOA, regarding what is most important to her. We did discuss creating possibly of value statement, she will complete DPOA. 45 minutes with review of labs, pathology, oncology note, [id number] with patient for counseling on pain and symptom management, psychosocial support, anticipatory guidance and advanced care planning.
== END 2021-08-30 09:25 | disposition home or self-care (01) ==
LOC: PC 09:24
PROVIDERS: ATTEND Nurse Practitioner Adult Health
DX: Z51.5 Encounter for palliative care (principal); R53.83 Other fatigue; L29.9 Pruritus, unspecified; L27.0 Generalized skin eruption due to drugs and medicaments taken internally; T45.1X5A Adverse effect of antineoplastic and immunosuppressive drugs, initial encounter; F41.9 Anxiety disorder, unspecified; K59.00 Constipation, unspecified; C7B.8 Other secondary neuroendocrine tumors; C80.1 Malignant (primary) neoplasm, unspecified; E10.8 Type 1 diabetes mellitus with unspecified complications; Z79.4 Long term (current) use of insulin; Z79.899 Other long term (current) drug therapy
CPT/HCPCS: 99215

== ENCOUNTER 2021-09-19 08:53 | Outpatient (CLI) | payer OTHER | END 2021-09-19 08:54 | disposition home or self-care (01) | LOC: PC 08:53 | PROVIDERS: ATTEND Nurse Practitioner Adult Health | DX: Z53.9 Procedure and treatment not carried out, unspecified reason (principal) ==

== ENCOUNTER 2021-09-21 14:26 | Outpatient (CLI) | payer OTHER ==
--- NOTE | 2021-09-21 16:57 | CONSULTATION NOTE ---
Palliative Care Follow Up - Referral Referring Provider: Dr. 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 She was originally diagnosed the summer 2019, had received treatment with complete response, and was on maintenance immunotherapy. She did have a ALEX/BSO in August of 2020 for large mass centered on her cervix and lower uterus, she had resumed her to atezolizumab every 3 weeks, had developed macular papular skin rash as well as autoimmune induced diabetes. Her most recent scan in July 08/2022 showed enlargement of the left periaortic lymph node, which biopsy did show recurrence of her high-grade neuroendocrine carcinoma. She had been considered disease-free for more than 12 months since her last chemotherapy with [place] combination so she has been receiving carboplatinum/etoposide with 3-day schedule every 3 weeks. She is on her third day today, is having persistent and significant fatigue. She is having some anorexia, but has been recovering in between her last scheduled treatments. Patient did have significant large plaques and rash 08/30 visit, with significant discomfort and itching, that did appear to improve with dexamethasone, she did get some prednisone 10 mg tabs, had taken only 1 follow-up dose, but has been doing fairly well since this time. She does have some slight facial rash, she has now since been put on a continuous insulin infusion, is doing fairly well, though with 10 mg of dexamethasone on Sunday, her blood sugars were in the 400s. Will follow up with Dr. Trujillo to see if can have this dexamethasone dose modified. Has had only has a mild low-grade nausea responsive to a couple doses of ondansetron. She does understand the seriousness of her illness, and that her treatment is palliative in intent. Past Medical History: Hypertension, DVT, type 1 diabetes, hypothyroidism, chronic constipation improved, history of cervical CA, chronic vision loss, fatigue, rash secondary to immunotherapy Social History - Living Situation Living arrangement: At home Living Situation: With spouse/s.o. 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 She has been 11 years, she has robust support group from her friends and family, her ayaz plays a huge part in her coping and managing her anxiety. She is very close to her sister who is and hopeful to travel as much as possible Medications/Allergies - Medications Home Medications: Ambulatory Orders Medication Instructions Recorded Confirmed Levothyroxine Sodium 50 mcg PO DAILY 07/16/20 09/21/21 [Levothyroxine] Rivaroxaban [Xarelto] 20 mg PO DAILY 11/05/20 09/21/21 Fluocinonide 0.05% Cream [Lidex 1 applic TOP BID 04/15/21 09/21/21 0.05% Cream] Senna [Senokot] 1 - 2 tab PO DAILY PRN 08/02/21 09/21/21 polyethylene glycoL 3350 [Miralax] 17 gm PO DAILY PRN 08/02/21 09/21/21 LORazepam [Ativan] 0.5 mg PO Q8HR PRN 08/31/21 09/21/21 Ondansetron [Ondansetron Odt] 4 mg PO Q6HR PRN 08/31/21 09/21/21 Prochlorperazine Maleate 10 mg PO Q6HR PRN 08/31/21 09/21/21 hydrOXYzine HCL [Hydroxyzine HCl] 25 mg PO Q6HR PRN 08/31/21 09/21/21 predniSONE [Deltasone] 10 mg PO DAILY PRN MDD titrate to 08/31/21 09/21/21 rash Insulin Pump Syringe, 3 ml 1 pump SQ DAILY 09/21/21 09/21/21 [Minimed Alexis] - Allergies Allergies/Adverse Reactions: Allergies Allergy/AdvReac Type Severity Reaction Status Date / Time No Known Drug Allergies Allergy Verified 01/21/21 08:35 Review of Systems - Constitutional Constitutional: reports: Fatigue (significant with chemotherapy), Diaphoresis, Night sweats, Weight gain (169.8) - Eyes Eyes: reports: Blurred vision (with elevated BS), Vision loss, Corrective lenses - Cardiovascular Cardiovascular: reports: Exertional dyspnea - Respiratory Respiratory: denies: SOB at rest - Gastrointestinal Gastrointestinal: reports: Nausea (responsive with ondansetron), Poor appetite (with etoposide). denies: Constipation (managing well with titration of senna) - Integumentary Integumentary: reports: Rash (improved some; perioral), Pruritis, Dryness - Neurological Neurological: reports: General weakness - Psychiatric Psychiatric: reports: Anxiety - Endocrine Endocrine: reports: Hypothyroidism, Other (new insuline pump doing better with BS) - Hematologic/Lymphatic Hematologic/Lymph: reports: Anemia (03/24) - All Other Systems All Other Systems: reports: Reviewed and negative Physical Exam - Vital Signs Temperature: 36.6 C Pulse Rate: 70 Respiratory Rate: 18 Blood Pressure: 148/71 - Physical Exam General Appearance: positive: No acute distress, Alert Eyes Bilateral: positive: Normal inspection ENT: positive: No signs of dehydration Neck: positive: Trachea midline Respiratory: positive: No respiratory distress Abdomen: positive: Soft Extremities: positive: No pedal edema Neurologic/Psychiatric: positive: Oriented x3, Mood/affect nml Palliative Care - POLST Patient has POLST: No Pain: No pain Tiredness/Fatigue: Severe (7-10) Drowsiness/Sedation: Severe (7-10) Nausea: Mild (1-3) Anorexia: Moderate (4-6) Dyspnea: None Depression: None Anxiety: None Feelings of wellbeing/Perceived Quality of Life: Good Constipation: Yes, Managed Performance Status: Patient is experiencing persistent fatigue and cumulative now on third treatment. She is doing fairly well overall, continuing to work depending on fluctuating energy levels, independent in her ADLs and driving. - Palliative Care Discussion: Discussion centered on patient's journey thus far, trying to normalize her routine around her new chemotherapy regimen. Patient doing well and focusing on coping mechanisms have been supportive in the past, particularly her ayaz. Feels like she is continuing to do fairly well, most frustrating and difficult part of her journey has been managing her diabetes and in position of needing to adjust with the new pump and tasks that go along with this. 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 She did present with progressive disease and is restarting her carboplatinum/etoposide treatment. She is newly on a insulin pump, with hope for better management, rash has improved. Patient is experiencing mostly fatigue as a side effect, little nausea. Palliative care continue to provide support for symptom management as well as advanced care planning and anticipatory guidance Recommendations/Counseling Done: 1. Rash secondary to immunotherapy. Patient did trial prednisone 10 mg, along with a dosing of the prednisone. Patient has had resolution mostly, is having some perioral rash, given her impact on blood sugars, recommended smaller dosing and trial for response. Patient may also benefit from decreasing dexamethasone for fluctuating blood sugars. 2. Constipation. Most likely multifactorial, is doing well with just senna, and feels problem has resolved. 3. Anxiety. Patient is doing fairly well with side effects, continues with persistent fatigue, no pain. Does have toolbox of medications available for both nausea and insomnia if needed. 4. Metastatic poorly differentiated neuroendocrine carcinoma of unknown primary, most likely uterine. Patient thus far is tolerating treatment fairly well, does have some persistent fatigue,Is seen oncology in follow-up on Sunday. 5. Advanced care planning. Patient has completed DPOA, will put on record, has done some nice work with conversations with her sisters and DPOA regarding her wishes. Appropriately hoping for the best, and continuing to try and normalize current situation. Palliative care will continue to follow with anticipatory guidance as indicated. 45 minutes with review of labs, notes, coordination of care with oncology team, counseling [id number] for support, anticipatory guidance, and pain and symptom management.
== END 2021-09-21 14:27 | disposition home or self-care (01) ==
LOC: PC 14:26
PROVIDERS: ATTEND Nurse Practitioner Adult Health
DX: Z51.5 Encounter for palliative care (principal); L25.8 Unspecified contact dermatitis due to other agents; T50.995A Adverse effect of other drugs, medicaments and biological substances, initial encounter; K59.00 Constipation, unspecified; F41.9 Anxiety disorder, unspecified; C7A.8 Other malignant neuroendocrine tumors
CPT/HCPCS: 99215

== ENCOUNTER 2021-11-07 11:15 | Outpatient (CLI) | payer OTHER ==
--- NOTE | 2021-11-07 17:58 | CONSULTATION NOTE ---
Palliative Care Follow Up - Referral Referring Provider: Dr. Ulysses Trujillo Time of Visit: 11:15 45 minutes Referral setting: MAC Referral Reason: Anxiety/Rash/HTN/Neuroendocrine CA - Information Sources Records reviewed: RN notes reviewed, Previous records reviewed History/Review of Systems obtained from: Patient Exam limitations: No limitations - History of Present Illness Update Brief HPI Update: This is a jessica 50-year-old woman with metastatic poorly differentiated neuroendocrine carcinoma of unknown primary/likely uterine or pancreas with original diagnosis summer. Patient had received treatment with complete response, as had surgery 09/05 for large mass on cervix and lower uterus, and had been previously on atezolizumab. She unfortunately developed autoimmune induced diabetes, and most recently had a progression of disease with enlargement of her left periaortic lymph node. She had been considered disease-free more than 12 months, so was restarted on her carboplatinum/etoposide with 3-day schedule every 3 weeks. She has done fairly well, with some persistent fatigue, but continues to improve. She had a facial rash, that did respond recently to doxycycline, she does feel like this is exacerbated again. She reports she does get some relief with the dexamethasone, but will reorder another 10-day course as it was quite distressing for her. She is currently on her insulin pump for her type 1 diabetes immune related. And has been doing fairly well with this, with better control of her blood sugars. She did unfortunately have to have her treatment delayed secondary anemia/thrombocytopenia, she is here for her fourth cycle. Patient reports she has had some bleeding. But this was more likely aligned with the time of her thrombocytopenia as she is on Xarelto. She has had persistent hypertension and has not followed up with her PCP as she is currently leaving. She is planning for a trip to [place] on 12/14 and looking forward to this. Past Medical History: Hypertension, DVT of distal left common femoral vein, hypothyroidism, chronic constipation improved, history of cervical CVA, chronic vision loss, fatigue, history of rash secondary to immunotherapy. Social History - Living Situation Living arrangement: At home Living Situation: With spouse/s.o. 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 She can prefer home. She is in 11 years, she has a robust support group from friends and family. Her ayaz continues to play huge part in her coping and managing her anxiety. She is hoping to continue to travel as much as possible, and very much looking forward to her pending trip. Medications/Allergies - Medications Home Medications: Ambulatory Orders Medication Instructions Recorded Confirmed Levothyroxine Sodium 50 mcg PO DAILY 07/16/20 11/07/21 [Levothyroxine] Rivaroxaban [Xarelto] 20 mg PO DAILY 11/05/20 11/07/21 Fluocinonide 0.05% Cream [Lidex 1 applic TOP BID 04/15/21 11/07/21 0.05% Cream] Senna [Senokot] 1 - 2 tab PO DAILY PRN 08/02/21 11/07/21 polyethylene glycoL 3350 [Miralax] 17 gm PO DAILY PRN 08/02/21 11/07/21 LORazepam [Ativan] 0.5 mg PO Q8HR PRN 08/31/21 11/07/21 Ondansetron [Ondansetron Odt] 4 mg PO Q6HR PRN 08/31/21 11/07/21 Prochlorperazine Maleate 10 mg PO Q6HR PRN 08/31/21 11/07/21 hydrOXYzine HCL [Hydroxyzine HCl] 25 mg PO Q6HR PRN 08/31/21 11/07/21 Insulin Pump Syringe, 3 ml 1 pump SQ DAILY 09/21/21 11/07/21 [Minimed [place]] Filgrastim-Sndz [Zarxio] 480 mcg SQ DAILY 10/04/21 11/07/21 Triamcinolone 0.1% Cream [Kenalog 1 applic TOP BID #30 gm 10/11/21 11/07/21 0.1% Cream] Doxycycline Hyclate 100 mg PO BID MDD reordered 11/0710/12/21 11/07/21 Lisinopril [Zestril] 2.5 mg PO DAILY 11/07/21 11/07/21 - Allergies Allergies/Adverse Reactions: Allergies Allergy/AdvReac Type Severity Reaction Status Date / Time No Known Drug Allergies Allergy Verified 01/21/21 08:35 Review of Systems - Constitutional Constitutional: reports: Fatigue (significant with chemotherapy; recovers well walking 2 miles more than once a day), Diaphoresis, Night sweats, Weight stable (77.9) - Eyes Eyes: reports: Vision loss, Corrective lenses - Ears, Nose & Throat Ears, Nose & Throat: reports: Dry mouth - Cardiovascular Cardiovascular: reports: Exertional dyspnea - Gastrointestinal Gastrointestinal: reports: Good appetite. denies: Constipation (currently controlled) - Genitourinary Genitourinary: reports: Sexual dysfunction - Musculoskeletal Musculoskeletal: reports: Muscle pain (new last 3 weeks right thigh/back pain worsening with standing; starting to resolve), Back pain - Integumentary Integumentary: reports: Rash (new rash with cysts on face; responded well to doxycline last time; starting to flare again-reordered another 10 days), Pruritis, Dryness, Hair changes (alopecia) - Neurological Neurological: reports: Memory problems (mild "chemo brain") - Psychiatric Psychiatric: denies: Depression, Anxiety - Endocrine Endocrine: reports: Hypothyroidism, Other (new insuline pump doing better with BS; ;considered type I) - Hematologic/Lymphatic Hematologic/Lymph: reports: Anemia (11) - All Other Systems All Other Systems: reports: Reviewed and negative Physical Exam - Vital Signs Respiratory Rate: 16 O2 Saturation: 98 Blood Pressure: 154/70 - Physical Exam General Appearance: positive: No acute distress, Alert Eyes Bilateral: positive: Normal inspection ENT: positive: No signs of dehydration Neck: positive: Trachea midline Cardiovascular: positive: Regular rate & rhythm Respiratory: positive: No respiratory distress, Breath sounds nml Abdomen: positive: Soft Skin: positive: Dryness, Bruising Extremities: positive: No pedal edema Neurologic/Psychiatric: positive: Oriented x3, Mood/affect nml Palliative Care - POLST Patient has POLST: No POLST Status: Full Code Pain: No pain Tiredness/Fatigue: Mild (1-3) Drowsiness/Sedation: Mild (1-3) Nausea: None Anorexia: None Dyspnea: None Depression: None Anxiety: None Feelings of wellbeing/Perceived Quality of Life: Good, Acceptable, No change Sleep: Sleeps well Constipation: Yes, Managed Performance Status: Has been working on increasing her endurance, is walking daily at least 2 miles, and sometimes more. She is trying to prepare for her pending trip. Does have some fatigue around her treatment time. She had some limitations given her muscle soreness and right thigh discomfort, she reports this is continuing to improve.Remains a ECOG 1 - Palliative Care Discussion: Discussed patient's journey thus far, she is feeling pretty good, still continues to try and normalize her routine around her chemotherapy regimen. She has focused on her "bucket list" which she is going to [place]. She admits she is somewhat nervous, but we discussed some things that we can do to prepare for any unexpected side effects. Patient continues to feel like she is doing fairly well, is trying to stay in the present and live life to the fullest. She remains hopeful both for quality and quantity of life, but does understand the seriousness of her illness. Results - Lab Results Lab results reviewed: Yes Impression and Recommendations - Palliative Care Impression: This is a jessica 50-year-old woman with metastatic poorly differentiated neuroen docrine carcinoma of unknown primary, most likely uterine. She is currently receiving carboplatinum/etoposide, and tolerating fairly well. She had had a delay in treatment related to anemia/thrombocytopenia. She is looking forward to her travels in the future. She does present with recurrent rash, will reorder doxycycline. Patient continues with persistent hypertension, will go ahead and treat given the context she has no primary care provider right now. Patient's blood sugars have better controlled on insulin pump. Palliative care continue provide support for symptom management, advanced care planning and anticipatory guidance. Recommendations/Counseling Done: 1. Persistent rash. Patient reports some improvement with dexamethasone, will go ahead and reorder doxycycline 100 mg twice daily for 10 days. Patient will start when rash exacerbates again. Patient did benefit from this dramatically last course with Estrella Blanco PA-C prescriber. 2. Hypertension. Patient continues with persistent hypertension, does not currently have a ECP. Patient has been on lisinopril in the past. Patient to obtain a blood pressure cuff, and start lisinopril 2.5 mg if blood pressure remains persistent over 140/80 with the goal to decrease to 130/70. She is to call if she is not within goal of 130-140/70-80 in 2 weeks for titration of medications. 3. Constipation. Patient is doing well at this point in time reports no further problems. 4. Anxiety. Patient is doing fairly well overall, continues with some persistent fatigue no recurrence of pain. Patient does have medications for nausea and insomnia if needed. Patient reports she is processing and setting goals, as well as keeping a "normal" work schedule. 5. Metastatic poorly differentiated neuro carcinoma of known primary, most likely uterine. We are waiting on edition 1 results to be available 11/15 for other treatment options. Patient's understanding when she is to get 6 months with the treatment, we will go ahead and follow patient accordingly. 6. Right thigh pain. Patient reports mild back radiating to the right thigh, feels she may have "pulled a muscle". It is continue to improve, though showed up about 2 to 3 weeks ago. Counseling provided regarding concerns if worsens, including increasing pain, trouble with weightbearing or functional status, or bowel or bladder incontinence. She acknowledges understanding. 7. Advanced care planning. Patient has completed DPOA, continues to work on regarding her wishes, setting goals. Continues to hope for the best and trying to normalize current situation. Does have pending trip which she is very much looking forward to see if this is a silver lining of her current situation. Palliative care continue to follow with anticipatory guidance as indicated. 45 minutes, review of oncology notes, labs, imaging, [id number] with patient counseling regarding symptom management and anticipatory guidance
== END 2021-11-07 11:16 | disposition home or self-care (01) ==
LOC: PC 11:15
PROVIDERS: ATTEND Nurse Practitioner Adult Health
DX: Z51.5 Encounter for palliative care (principal); R21 Rash and other nonspecific skin eruption; I10 Essential (primary) hypertension; F41.9 Anxiety disorder, unspecified; C7A.1 Malignant poorly differentiated neuroendocrine tumors; C79.9 Secondary malignant neoplasm of unspecified site; M79.651 Pain in right thigh; Z79.899 Other long term (current) drug therapy
CPT/HCPCS: 99215

== ENCOUNTER 2023-08-26 12:36 | Outpatient (CLI) | payer OTHER ==
--- NOTE | 2023-08-26 20:51 | Ultrasound Report ---
PROCEDURE: Duplex Ext Veins Left INDICATIONS: LEG PARESTHESIA, HIST OF DVT TECHNIQUE: Real-time imaging, as well as color and pulse Doppler interrogation, were performed of the lower extr emity deep veins from the inguinal ligament to the popliteal fossa. Attempted visualization of the ca lf veins was performed. COMPARISON: Venous ultrasound on March 17, 2020. FINDINGS: The deep veins are normally compressible, and free of intraluminal thrombus. Color and pu lse Doppler demonstrate normal phasic intraluminal flow. There is normal augmentation response to di stal compression maneuver. IMPRESSION: No deep venous thrombosis of the visualized left lower extremity. Reviewed by: Miguel A Elam MD on 08/26/2023 8:50 PM PDT Approved by: Miguel A Elam MD on 08/26/2023 8:50 PM PDT Station ID: [id number]
== END 2023-08-26 12:37 | disposition home or self-care (01) ==
LOC: DI 12:36
PROVIDERS: ATTEND Physician Assistant
DX: R20.2 Paresthesia of skin (principal); Z86.718 Personal history of other venous thrombosis and embolism

== ENCOUNTER 2023-10-15 08:33 | Outpatient (CLI) | payer OTHER ==
[2023-10-15 15:21] LABS: BASOPHILS % (AUTO) 0.3 %; EOSINOPHILS # (AUTO) 0.2 10^3/uL (0.0-0.7); EOSINOPHILS % (AUTO) 4.6 %; HCT - HEMATOCRIT 39.9 % (37.0-47.0); HGB - HEMOGLOBIN 12.4 g/dL (12.0-16.0); LYMPHOCYTES # (AUTO) 1.4 10^3/uL (1.5-3.5); LYMPHOCYTES % (AUTO) 42.8 %; MEAN CORPUSCULAR HEMOGLOBIN 31.4 pg (27.0-31.0); MEAN CORPUSCULAR HGB CONC 31.1 g/dL (32.0-36.0); MEAN PLATELET VOLUME 10.1 fL (7.9-10.8); MONOCYTES # (AUTO) 0.2 10^3/uL (0.0-1.0); MONOCYTES % (AUTO) 6.2 %; NEUTROPHILS # (AUTO) 1.5 10^3/uL (1.5-6.6); NEUTROPHILS % (AUTO) 45.8 %; PLT - PLATELET COUNT 139 10^3/uL (130-450); RED BLOOD COUNT 3.95 10^6/uL (4.20-5.40); RED CELL DISTRIBUTION WIDTH 13.5 % (12.0-15.0); WHITE BLOOD COUNT 3.3 x10^3/uL (4.8-10.8)
[2023-10-15 15:29] LABS: CREATININE,URINE 143.9 mg/dL; MICROALBUM/CREATININE RATIO,UR 13.2 ug/mg (<30.0); MICROALBUMIN,URINE 1.9 mg/dL
[2023-10-15 15:37] LABS: ALBUMIN 4.3 g/dL (3.2-5.5); ALKALINE PHOSPHATASE 56 IU/L (42-121); ALT ALANINE AMINOTRANSFERASE 12 IU/L (10-60); AST ASPARTATE AMINOTRANSFERASE 14 IU/L (10-42); BILIRUBIN,TOTAL 0.4 mg/dL (0.2-1.0); BUN - BLOOD UREA NITROGEN 21 mg/dL (6-20); CALCIUM 9.4 mg/dL (8.5-10.3); CARBON DIOXIDE - CO2 31 mmol/L (21-32); CHLORIDE 107 mmol/L (101-111); CHOL/HDL RATIO 2.4 (<4.4); CHOLESTEROL 175 mg/dL; CREATININE 0.9 mg/dL (0.6-1.3); GFR - MDRD 66 (>89); GLUCOSE 172 mg/dL (74-104); HDL CHOLESTEROL 73 mg/dL; LDL CHOLESTEROL,CALCULATED 90 mg/dL; LDL/HDL RATIO 1.2 (<4.4); POTASSIUM 4.6 mmol/L (3.5-4.5); SODIUM 142 mmol/L (135-145); TOTAL PROTEIN 6.5 g/dL (6.4-8.9); TRIGLYCERIDES 58 mg/dL (48-352); VLDL CHOLESTEROL 12 mg/dL
[2023-10-15 15:49] LABS: ESTIMATED AVERAGE GLUCOSE 160 mg/dL (70-100); HEMOGLOBIN A1c% 7.2 % (4.27-6.07)
== END 2023-10-15 08:34 | disposition home or self-care (01) ==
LOC: LAB.S 08:33
PROVIDERS: ATTEND Physician Assistant
DX: E10.9 Type 1 diabetes mellitus without complications (principal)
CPT/HCPCS: 36415; 80053; 80061; 82043; 82570; 83036; 83721; 85025

== ENCOUNTER 2023-11-28 22:42 | Emergency (ER) | payer OTHER ==
--- NOTE | 2023-11-28 23:22 | ED Physician Documentation ---
History of Present Illness - Stated complaint Stated Complaint: HIGH BLOOD SUGAR - Chief complaint Chief Complaint: General - History obtained from History obtained from: Patient - Additonal information Additional information: 52yF with pmh DM1, metastatic neuroendocrine CA, p/w hyperglycemia tonight around 6pm after eating peanut butter and jelly sandwich. patient endorses mild nausea at the time that has since resolved. also thirsty. denies increased urinary frequency, fever, malaise, vomiting, diarrhea or abdominal pain Review of Systems Constitutional: denies: Fever, Chills, Myalgias, Fatigue, Weight Loss Nose: denies: Rhinorrhea / runny nose, Congestion Cardiac: denies: Chest pain / pressure, Palpitations Respiratory: denies: Dyspnea, Cough GI: reports: Nausea. 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: Hysterectomy, Oophrectomy - Present Medications Home Medications: Ambulatory Orders Medication Instructions Recorded Confirmed Levothyroxine Sodium 50 mcg PO DAILY 07/16/20 09/28/23 [Levothyroxine] polyethylene glycoL 3350 [Miralax] 17 gm PO DAILY PRN 08/02/21 09/28/23 hydrOXYzine HCL [Hydroxyzine HCl] 25 mg PO Q6HR PRN 08/31/21 09/28/23 Insulin Pump Syringe, 3 ml 1 pump SQ DAILY 09/21/21 09/28/23 [Minimed [place]] - Allergies Allergies/Adverse Reactions: Allergies Allergy/AdvReac Type Severity Reaction Status Date / Time No Known Drug Allergies Allergy Verified 11/28/23 22:44 - Social History Does the pt smoke?: No Smoking Status: Never smoker Does the pt drink ETOH?: Yes Does the pt have substance abuse?: No - Immunizations Immunizations are current?: No - POLST Patient has POLST: No PD ED PE NORMAL - Vitals Vital signs reviewed: Yes - General General: Alert and oriented X 3, No acute distress, Well developed/nourished - HEENT HEENT: Atraumatic, PERRL, EOMI - Neck Neck: Supple, no meningeal sign - Cardiac Cardiac: RRR - Respiratory Respiratory: No respiratory distress, Clear bilaterally - Abdomen Abdomen: Non tender, Non distended - Derm Derm: Normal color, Warm and dry - Extremities Extremities: No deformity - Neuro Neuro: Alert and oriented X 3 - Psych Psych: Normal mood, Normal affect Results - Vitals Vitals: Vital Signs - 24 hr 11/28/23 11/29/23 22:45 01:00 Temperature 35.9 C L Heart Rate 87 85 Respiratory 16 16 Rate Blood Pressure 171/91 H 138/71 H O2 Saturation 97 99 Oxygen O2 Source Room air - EKG (time done) 2306 EKG releavant findings:: EKG personally interpreted by author of this note. Relevant findings are: Rate: Rate (enter#) (74) Rhythm: NSR [place]: Normal Intervals: Normal [place] QRS: Normal Ischemia: Normal ST segments - Labs Labs: Laboratory Tests 11/28/23 11/28/23 11/28/23 22:55 23:15 23:15 WBC 3.4 L RBC 3.93 L Hgb 12.4 Hct 38.1 MCV 96.9 MCH 31.6 H MCHC 32.5 RDW 12.8 Plt Count 122 L MPV 10.2 Neut # (Auto) 2.0 Lymph # (Auto) 1.1 L [place] # (Auto) 0.2 Eos # (Auto) 0.1 Baso # (Auto) 0.0 Absolute Nucleated RBC 0.00 Nucleated RBC % 0.0 VBG pH VBG pCO2 VBG pO2 VBG HCO3 VBG Total CO2 VBG O2 Saturation VBG Base Excess Sodium 133 L Potassium 4.3 Chloride 98 L Carbon Dioxide 26 Anion Gap 9.0 BUN 27 H Creatinine 1.1 Estimated GFR (MDRD) 52 L Glucose 705 H* POC Whole Bld Glucose Calcium 9.4 Phosphorus 2.8 Magnesium 1.7 Total Bilirubin 0.6 AST 14 ALT 13 Alkaline Phosphatase 60 Total Protein 7.2 Albumin 4.2 Globulin 3.0 Albumin/Globulin Ratio 1.4 Urine Color YELLOW Urine Clarity CLEAR Urine pH 6.5 Ur Specific [place] 1.010 Urine Protein NEGATIVE Urine Glucose (UA) >=1000 H Urine Ketones 15 H Urine Occult Blood NEGATIVE Urine Nitrite NEGATIVE Urine Bilirubin NEGATIVE Urine Urobilinogen 0.2 (NORMAL) Ur Leukocyte Esterase NEGATIVE Urine RBC 0-5 Urine WBC 0-3 Ur Squamous Epith Cells FEW Squamous Urine Bacteria Rare Urine Culture Comments NOT INDICATED Serum Ketones NEGATIVE 11/28/23 11/29/23 11/29/23 23:15 00:18 01:12 WBC RBC Hgb Hct MCV MCH MCHC RDW Plt Count MPV Neut # (Auto) Lymph # (Auto) [place] # (Auto) Eos # (Auto) Baso # (Auto) Absolute Nucleated RBC Nucleated RBC % VBG pH 7.387 VBG pCO2 41.3 VBG pO2 71.3 H VBG HCO3 24.3 VBG Total CO2 25.5 VBG O2 Saturation 92.3 H VBG Base Excess -0.7 Sodium Potassium Chloride Carbon Dioxide Anion Gap BUN Creatinine Estimated GFR (MDRD) Glucose POC Whole Bld Glucose 517 H* 339 H Calcium Phosphorus Magnesium Total Bilirubin AST ALT Alkaline Phosphatase Total Protein Albumin Globulin Albumin/Globulin Ratio Urine Color Urine Clarity Urine pH Ur Specific [place] Urine Protein Urine Glucose (UA) Urine Ketones Urine Occult Blood Urine Nitrite Urine Bilirubin Urine Urobilinogen Ur Leukocyte Esterase Urine RBC Urine WBC Ur Squamous Epith Cells Urine Bacteria Urine Culture Comments Serum Ketones PD Medical Decision Making - ED course ED course: 52yF with pmh DM1, neuroendocrine metastatic CA , with insulin pump (humalog) p/w hyperglycemia tonight outside of the norm for her. denies other sympoms aside from vague nausea. well appearing with benign vitals and exam aside from some mild hypertension. Her labwork looks benign except for some hyperglycemia managed with IV regular insulin to good effect. return precautions given. plan to f/u with pcp. Departure - Departure Disposition: 01 Home, Self Care Clinical Impression: Hyperglycemia Condition: Stable Instructions: Hyperglycemia Follow-Up: Orestes Celaya MD [Physician No Access] - Comments: You were seen in the emergency department for high blood sugar. Your labwork and exam was otherwise benign. 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 Forms: PCP List
[2023-11-28 23:25] LABS: BASOPHILS % (AUTO) 0.3 %; EOSINOPHILS # (AUTO) 0.1 10^3/uL (0.0-0.7); EOSINOPHILS % (AUTO) 2.4 %; HCT - HEMATOCRIT 38.1 % (37.0-47.0); HGB - HEMOGLOBIN 12.4 g/dL (12.0-16.0); LYMPHOCYTES # (AUTO) 1.1 10^3/uL (1.5-3.5); LYMPHOCYTES % (AUTO) 31.3 %; MEAN CORPUSCULAR HEMOGLOBIN 31.6 pg (27.0-31.0); MEAN CORPUSCULAR HGB CONC 32.5 g/dL (32.0-36.0); MEAN CORPUSCULAR VOLUME 96.9 fL (81.0-99.0); MEAN PLATELET VOLUME 10.2 fL (7.9-10.8); MONOCYTES # (AUTO) 0.2 10^3/uL (0.0-1.0); PLT - PLATELET COUNT 122 10^3/uL (130-450); RED BLOOD COUNT 3.93 10^6/uL (4.20-5.40); RED CELL DISTRIBUTION WIDTH 12.8 % (12.0-15.0); VBG PCO2 41.3 mmHg (41-51); VBG PH 7.387 (7.31-7.41); WHITE BLOOD COUNT 3.4 x10^3/uL (4.8-10.8)
[2023-11-28 23:26] LABS: VBG BASE EXCESS -0.7 mmol/L (-2 - +2); VBG HCO3 24.3 mmol/L (23-28); VBG OXYGEN SATURATION 92.3 % (60-80); VBG PO2 71.3 mmHg (25-47); VBG TOTAL CO2 25.5 mmol/L (24-29)
[2023-11-28] MEDS: SODIUM CHLORIDE 0.9% 1,000 ML IV STA (23:27)
[2023-11-28 23:30] LABS: KETONES, SERUM (ACETEST) NEGATIVE (NEGATIVE)
[2023-11-28] MEDS: INSULIN REGULAR, HUMAN 300 UNIT/3 ML PEN IVP STA (23:40)
[2023-11-28 23:42] LABS: MAGNESIUM 1.7 mg/dL (1.7-2.3)
[2023-11-28 23:48] LABS: PHOSPHORUS 2.8 mg/dL (2.5-5.0)
[2023-11-28 23:56] LABS: ALBUMIN 4.2 g/dL (3.2-5.5); ALBUMIN/GLOBULIN RATIO 1.4 (1.0-2.2); ALKALINE PHOSPHATASE 60 IU/L (42-121); ALT ALANINE AMINOTRANSFERASE 13 IU/L (10-60); AST ASPARTATE AMINOTRANSFERASE 14 IU/L (10-42); BILIRUBIN,TOTAL 0.6 mg/dL (0.2-1.0); BUN - BLOOD UREA NITROGEN 27 mg/dL (6-20); CALCIUM 9.4 mg/dL (8.5-10.3); CARBON DIOXIDE - CO2 26 mmol/L (21-32); CHLORIDE 98 mmol/L (101-111); CREATININE 1.1 mg/dL (0.6-1.3); GFR - MDRD 52 (>89); GLUCOSE 705 mg/dL (74-104); POTASSIUM 4.3 mmol/L (3.5-4.5); SODIUM 133 mmol/L (135-145); TOTAL PROTEIN 7.2 g/dL (6.4-8.9)
[2023-11-29 00:18] LABS: BILIRUBIN,URINE NEGATIVE (NEGATIVE); GLUCOSE, URINE (UA) >=1000 mg/dL (NEGATIVE); KETONES,URINE (UA) 15 mg/dL (NEGATIVE); LEUKOCYTE ESTERASE, URINE NEGATIVE (NEGATIVE); NITRITE,URINE NEGATIVE (NEGATIVE); OCCULT BLOOD,URINE NEGATIVE (NEGATIVE); PH,URINE 6.5 PH (5.0-7.5); PROTEIN,URINE NEGATIVE (NEGATIVE); UROBILINOGEN,URINE 0.2 (NORMAL) E.U./dL (NORMAL)
[2023-11-29 00:25] LABS: BACTERIA,URINE Rare /HPF (None Seen); CLARITY,URINE CLEAR (CLEAR); RBC,URINE 0-5 /HPF (0-5); SQUAMOUS EPITHELIAL CELL,UR FEW Squamous (<= Few); WBC,URINE 0-3 /HPF (0-5)
[2023-11-29] MEDS: SODIUM CHLORIDE 0.9% 1,000 ML IV STA (00:28)
[2023-11-29] MEDS: INSULIN REGULAR, HUMAN 300 UNIT/3 ML PEN IVP STA (00:44)
[2023-11-29 01:23] VITALS: BP 138/71; O2SAT 99
== END 2023-11-29 01:27 | disposition home or self-care (01) ==
LOC: ED 22:42
DX: E10.65 Type 1 diabetes mellitus with hyperglycemia (principal); Z79.4 Long term (current) use of insulin; Z96.41 Presence of insulin pump (external) (internal); C7A.8 Other malignant neuroendocrine tumors
CPT/HCPCS: 36415; 80053; 81001; 82009; 82803; 83735; 84100; 85025; 87086; 93005; 96360; 99283

== ENCOUNTER 2024-02-01 07:34 | Outpatient (CLI) | payer OTHER ==
[2024-02-01 14:51] LABS: BASOPHILS % (AUTO) 0.5 %; EOSINOPHILS # (AUTO) 0.1 10^3/uL (0.0-0.7); EOSINOPHILS % (AUTO) 3.1 %; HCT - HEMATOCRIT 41.8 % (37.0-47.0); HGB - HEMOGLOBIN 13.3 g/dL (12.0-16.0); LYMPHOCYTES # (AUTO) 1.7 10^3/uL (1.5-3.5); LYMPHOCYTES % (AUTO) 45.2 %; MEAN CORPUSCULAR HEMOGLOBIN 31.1 pg (27.0-31.0); MEAN CORPUSCULAR HGB CONC 31.8 g/dL (32.0-36.0); MEAN CORPUSCULAR VOLUME 97.9 fL (81.0-99.0); MEAN PLATELET VOLUME 9.9 fL (7.9-10.8); MONOCYTES # (AUTO) 0.2 10^3/uL (0.0-1.0); MONOCYTES % (AUTO) 5.5 %; NEUTROPHILS # (AUTO) 1.7 10^3/uL (1.5-6.6); NEUTROPHILS % (AUTO) 45.2 %; PLT - PLATELET COUNT 156 10^3/uL (130-450); RED BLOOD COUNT 4.27 10^6/uL (4.20-5.40); RED CELL DISTRIBUTION WIDTH 13.3 % (12.0-15.0); WHITE BLOOD COUNT 3.8 x10^3/uL (4.8-10.8)
[2024-02-01 16:41] LABS: ALBUMIN 4.5 g/dL (3.2-5.5); ALBUMIN/GLOBULIN RATIO 1.5 (1.0-2.2); BILIRUBIN,TOTAL 0.6 mg/dL (0.2-1.0); CALCIUM 9.7 mg/dL (8.5-10.3); CREATININE 0.9 mg/dL (0.6-1.3); POTASSIUM 4.2 mmol/L (3.5-4.5); TOTAL PROTEIN 7.5 g/dL (6.4-8.9)
== END 2024-02-01 07:35 | disposition home or self-care (01) ==
LOC: LAB.S 07:34
PROVIDERS: ATTEND Internal Medicine Hematology & Oncology
DX: C7A.1 Malignant poorly differentiated neuroendocrine tumors (principal)
CPT/HCPCS: 36415; 80053; 85025